=== PATIENT | female | born 1950 | race Caucasian/White ===

== ENCOUNTER 2020-02-25 08:27 | Outpatient (CLI) | payer MEDICARE, OTHER, SELFPAY ==
--- NOTE | ~2020-02-25 | MM_ITS ---
EXAMINATION: MM screening new BI w álvaro HISTORY: Screening mammogram TECHNIQUE: Craniocaudal and mediolateral oblique 3-D tomosynthesis images were obtained and synthetic 2-D images were generated. CAD analysis was submitted and interpreted. COMPARISON: 07/14/2018, 02/03/2016, 10/24/2014 bilateral digital screening mammogram examinations BREAST PARENCHYMAL COMPOSITION: There are scattered areas of fibroglandular density. FINDINGS: There are occasional stable bilateral low-density circumscribed opacities, measuring up to 9 mm on each side, not significantly changed since 02/03/2016. There is a biopsy marker on the left; hi story of prior benign left breast biopsy. There is no evidence of suspicious mass, calcification, or architectural distortion to suggest malignancy in either breast. There has been no suspicious interva l change. IMPRESSION: 1. No mammographic evidence of malignancy. 2. Recommend routine screening mammography in one year. BI-RADS Category 2: Benign finding(s). Reviewed, dictated and finalized at location A.
== END 2020-02-25 08:28 | disposition home or self-care (01) ==
LOC: ANHIMG 08:30
PROVIDERS: PCP Family Medicine; Visit Provider Family Medicine
DX: Z12.31 Encounter for screening mammogram for malignant neoplasm of breast (principal)
CPT/HCPCS: 77063; 77067

== ENCOUNTER 2020-02-27 07:30 | Outpatient (CLI) | payer MEDICARE, OTHER, SELFPAY ==
--- NOTE | ~2020-02-27 | MR_ITS ---
EXAMINATION: MR brain/brain stem wo/w con DATE: 02/27/2020 09:07 INDICATION: Hereditary ataxia, unspecified. Loss of balance. TECHNIQUE: Magnetic resonance imaging (MRI) of the brain and brainstem was performed without and with 10 mL MultiHance intravenous contrast. Sequences included sagittal and axial T1-weighted FSE, axial diffusion-weighted FS EPI, axial T2*-weighted GRE, axial T2-weighted FLAIR Propeller, and axial T2-we ighted Propeller. Postcontrast sequences included axial and coronal T1-weighted FSE. Apparent diffusi on coefficient (ADC) maps were created. COMPARISON: None. FINDINGS: There is diffuse brain volume loss. There are scattered areas of nonspecific increased T2-w eighted signal intensity in the cerebral white matter, which is within normal limits for the patient' s age. There is no intracranial hemorrhage, acute infarction, or abnormal intracranial mass lesion. T he ventricles are normal in size. The orbits are normal. There is mucosal thickening in left maxillar y sinus. IMPRESSION: 1. Normal aging brain. Reviewed, dictated and finalized at location A. IMPRESSION: 1. Normal aging brain.
[2020-02-27 08:26] LABS: Estimated Glomerular Filt Rate 44
== END 2020-02-27 07:31 | disposition home or self-care (01) ==
PROVIDERS: PCP Family Medicine; Visit Provider Family Medicine
DX: G11.9 Hereditary ataxia, unspecified (principal)
CPT/HCPCS: 36415; 70553; A9577

== ENCOUNTER → 2021-03-06 00:57 | Outpatient (CLI) | payer MEDICARE, OTHER, SELFPAY ==
[2021-03-07 02:13] LABS: SARS-CoV-2 RNA PCR Negative
== END ==
PROVIDERS: PCP Family Medicine; Visit Provider Physician Assistant Medical
DX: Z20.822 Contact with and (suspected) exposure to COVID-19 (principal)
CPT/HCPCS: C9803; U0003; U0005

== ENCOUNTER 2021-11-17 10:58 | Emergency (ER) | payer MEDICARE, OTHER, SELFPAY ==
[2021-11-17 11:04] VITALS: BP 183/78; PULSE 70; RESP 16; TEMP 36.5; O2SAT 98
--- NOTE | 2021-11-17 11:06 | ED.GENADULT ---
HPI - General Adult General Chief complaint: Ear Stated complaint: EAR CONGESTION Time Seen by Provider: 11/17/21 11:07 Source: patient Mode of arrival: ambulatory Limitations: no limitations History of Present Illness HPI narrative: 71-year-old female presented for complaint of bilateral ear congestion for 2 weeks. Endorses occasional pain on the left, and decreased hearing on the right. She has been using [id number]-rtgviel earwax softener along with water and hydrogen peroxide with minimal relief. She denies tinnitus, headache, dizziness, nausea, fever or chills. Takes aspirin for arthritis. Related Data Home Medications Medication Instructions Recorded Confirmed aspirin 325 mg tablet 325 mg PO DAILY 08/15/19 07/22/21 cyanocobalamin (vitamin B-12) 1,000 mcg PO DAILY 03/26/20 07/22/21 1,000 mcg tablet zinc 50 mg tablet 50 mg PO DAILY 01/20/21 07/22/21 Allergies Allergy/AdvReac Type Severity Reaction Status Date / Time amoxicillin Allergy Unknown Nausea Verified 07/22/21 09:51 nitrofurantoin Allergy Unknown Skin Verified 07/22/21 09:51 Reaction Review of Systems Review of Systems: CONSTITUTIONAL: Denies malaise, chills, or fever. EYES: Denies visual changes, redness, or discharge. ENT: Denies rhinorrhea, congestion, sinus pain, and sore throat. Reports ear congestion CARDIOVASCULAR: Denies chest pain, palpitations, or edema. RESPIRATORY: Denies cough or dyspnea. GASTROINTESTINAL: Denies abdominal pain, nausea, vomiting, diarrhea SKIN: Denies rash or itching. MUSCULOSKELETAL: Denies myalgia. NEUROLOGIC: Denies headache. All systems reviewed & are unremarkable except as noted in HPI and below [facility] Past Medical History Medical History (Updated 11/17/21 @ 11:55 by Josephine Choudhary APRN) Cerebellar ataxia Family History Family History Father Family history of glaucoma Hypertension Family history of elevated blood lipids Family history of cardiovascular disease Cerebrovascular accident Mother Family history of cardiovascular disease Social History Social History Alcohol intake: never Comments At time of signature, agree with nursing past medical, surgical, social and family history. There is no relevant family history pertinent to the presenting complaint Exam Narrative: GENERAL: Well-appearing HEAD: Normocephalic EYES: conjunctivae clear ENT: Nares clear. Mucous membranes moist. TMs unable to visualize bilaterally due to cerumen impaction; no tragal tenderness. Oropharynx not erythematous without lesions. Tonsils not enlarged and without exudate, no drooling, no hoarseness, no trismus, uvula midline. NECK: Supple. No lymphadenopathy CHEST: Clear to auscultation, breath sounds equal. No wheezing, rhonchi, rales, or stridor. HEART: Regular rate and rhythm. No murmur heard. SKIN: Warm, dry, no rash. NEURO: Alert and oriented x3. PSYCH: Normal mood and affect Course Course Emergency Course: Patient is aware of diagnosis, understands and agrees to treatment plan. Anticipatory guidance given. Patient agrees to follow-up as directed and is aware of reasons to seek care at the emergency department. Portions of this record may have been created with voice recognition software Level of Care: Express Care Visit Vital Signs Vital signs: Vital Signs Temperature 97.7 F 11/17/21 11:04 Pulse Rate 70 11/17/21 11:04 Respiratory Rate 16 11/17/21 11:04 Blood Pressure 183/78 H 11/17/21 11:04 Pulse Oximetry 98 11/17/21 11:04 Temperature 97.7 F 11/17/21 11:09 Pulse Rate 70 11/17/21 11:09 Respiratory Rate 16 11/17/21 11:09 Blood Pressure 183/78 H 11/17/21 11:09 Pulse Oximetry 98 11/17/21 11:09 Reviewed Procedures Ear Wax Removal Both Ears: Ear Wax Removal Date: 11/17/21 Cerumenolytic Used: other (hydrogen peroxide
[2021-11-17 11:09] VITALS: BP 183/78; PULSE 70; RESP 16; TEMP 36.5; O2SAT 98
== END 2021-11-17 12:03 | disposition home or self-care (01) ==
PROVIDERS: Emergency Provider Nurse Practitioner Family; PCP Family Medicine
DX: H61.23 Impacted cerumen, bilateral (principal); G11.9 Hereditary ataxia, unspecified
CPT/HCPCS: 69210; 99212; G0463

== ENCOUNTER 2021-12-01 15:02 | Outpatient (CLI) | payer MEDICARE, OTHER, SELFPAY ==
--- NOTE | ~2021-12-01 | MM_ITS ---
EXAMINATION: MM screening new BI w álvaro HISTORY: Screening mammogram TECHNIQUE: Craniocaudal and mediolateral oblique 3-D tomosynthesis images were obtained and synthetic 2-D images were generated. CAD analysis was submitted and interpreted. COMPARISON: 02/25/2020, 07/14/2018, 02/03/2016 bilateral screening mammogram examinations BREAST PARENCHYMAL COMPOSITION: There are scattered areas of fibroglandular density. FINDINGS: Stable bilateral low-density circumscribed opacities, not significantly changed since 016. There is a biopsy marker on the left; history of prior benign left breast biopsy. There is no evidenc e of suspicious mass, calcification, or architectural distortion to suggest malignancy in either [address]. There has been no suspicious interval change. IMPRESSION: 1. No mammographic evidence of malignancy. 2. Recommend routine screening mammography in one year. BI-RADS Category 2: Benign finding(s). Reviewed, dictated and finalized at location A.
--- NOTE | ~2021-12-01 | DEXA_ITS ---
Bone Density Report Name: DA GUSTAFSON Age: 71 Sex: Female Ethnicity: White Date of : 1950 Indication: postmenopausal; screening for osteoporosis; height loss; hysterectomy; Referring Provider: ABRAM, LALY Meredith Study: Bone densitometry was performed. Exam Date: December 01, 2021 Accession number: [id number] Bone Density: Region BMD T-score Z-score Classification AP Spine(L1-L4) 1.058 0.1 2.4 Normal Femoral Neck (Left) 0.735 -1.0 1.0 Normal Total Hip (Left) 0.794 -1.2 0.5 Osteopenia Femoral Neck (Right) 0.771 -0.7 1.3 Normal Total Hip (Right) 0.825 -1.0 0.7 Normal Total Hip Mean 0.810 -1.1 0.6 Osteopenia World Health Organization criteria for BMD impression classify patients as: Normal (T-score at or above -1.0), Osteopenia (T-score between -1.0 and -2.5), or Osteoporosis (T-score at or below -2.5). 10-year Fracture Risk(1): Major Osteoporotic Fracture 9.8% Hip Fracture 2.2% Reported Risk Factors: [place] (), Neck BMD=0.735, BMI=24.8, smoking (1) FRAX(R) Version 3.08. Fracture probability calculated for an untreated patient. Fracture probability may be lower if the patient has received treatment. Previous Exams: Region Exam Age BMD T-score BMD Change BMD Change Date g/cm2 vs Baseline vs Previous Total Hip(Left) 12/01/2021 71 0.794 -1.2 -0.047 (-5.6%) -0.047 (-5.6%) 07/14/2018 68 0.841 -0.8 Total Hip(Right) 12/01/2021 71 0.825 -1.0 -0.007 (-0.9%) -0.007 (-0.9%) 07/14/2018 68 0.832 -0.9 *Denotes significance at 95% confidence level, LSC for Total Hip = 0.027 g/cm2 Clinical Information Provided by Patient: Smokes Has used the following medications: Calcium Has the following medical conditions: Hysterectomy Patient maximum height was 62 Menopause Age: 43 Onset of menses at age 9 Number of children 4 Impression: The patient has low bone mass, based on the Left Total Hip T-score. The patient has an estimated ten-year risk of hip fracture of 2.2% and an estimated ten-year risk of major fracture of 9.8%, based on the WHO FRAX algorithm. The patient has risk factors, including: smoking. The BMD for the Total Hip(Left) decreased, changing by -5.6% since the last DXA exam. Discussion: BONE DENSITY IS LOW AT ONE OR MORE SKELETAL SITES. This patient's lowest T-score is low at one or more skeletal sites. It meets the World Health Organization's (WHO) criteria for ?low bone mass? (T-score between -1.0 and -2.5). The patient's
== END 2021-12-01 15:03 | disposition home or self-care (01) ==
PROVIDERS: PCP Family Medicine; Visit Provider Physician Assistant Medical
DX: Z12.31 Encounter for screening mammogram for malignant neoplasm of breast (principal); Z78.0 Asymptomatic menopausal state; M85.89 Other specified disorders of bone density and structure, multiple sites
CPT/HCPCS: 77063; 77067; 77080

== ENCOUNTER 2022-01-29 10:09 | Outpatient (CLI) | payer MEDICARE, OTHER, SELFPAY ==
--- NOTE | ~2022-01-29 | XR_ITS ---
XR finger 5th RT min 2V DATE: 01/29/2022 10:48 INDICATION: Mallet finger TECHNIQUE: 3 views COMPARISON: None FINDINGS: No fracture or dislocation is noted. There is mild flexion deformity at the distal interpha langeal joint. Osteopenia IMPRESSION: Flexion deformity distal interphalangeal joint Osteopenia Reviewed, dictated and finalized at location A.
--- NOTE | ~2022-01-29 | XR_ITS ---
XR knee RT 3V DATE: 01/29/2022 10:49 INDICATION: Right knee pain, chronic TECHNIQUE: Standing AP and lateral views. [place] view. COMPARISON: None FINDINGS: There is lateral subluxation and moderate osteoarthritic change at the patellofemoral joint . Medial and lateral compartment joint spaces are relatively well preserved. No fracture or dislocation or joint effusion. No chondrocalcinosis. No periosteal reaction or bone de struction. IMPRESSION: Lateral subluxation and osteoarthritis at the patellofemoral joint Reviewed, dictated and finalized at location A.
== END 2022-01-29 10:10 | disposition home or self-care (01) ==
PROVIDERS: PCP Family Medicine; Visit Provider Physician Assistant
DX: M20.011 Mallet finger of right finger(s) (principal); M25.561 Pain in right knee; M85.841 Other specified disorders of bone density and structure, right hand; M17.11 Unilateral primary osteoarthritis, right knee
CPT/HCPCS: 73140; 73562

== ENCOUNTER 2022-02-09 08:34 | Outpatient (CLI) | payer MEDICARE, OTHER, SELFPAY ==
--- NOTE | ~2022-02-09 | CT_ITS ---
EXAMINATION: CT lung screening DATE: 02/09/2022 08:49 INDICATION: Personal history of tobacco dependence. TECHNIQUE: Computed tomography (CT) of the chest was performed without intravenous contrast. The dose -length product was 66.93 mGy-cm. Automated exposure control and iterative reconstruction technique w ere employed. COMPARISON: CT dated 09/02/2016 FINDINGS: No thoracic lymphadenopathy. There is atherosclerosis of the aorta and coronary arteries. T here are low density lesions in the liver, most likely benign cysts. The spleen, pancreas, adrenal gl ands are unremarkable. No significant pleural or pericardial effusion. There is moderate emphysema. N o endobronchial lesions. There are a few small 2 mm nodules in the upper lobes, best seen on coronal reconstructions. No focal consolidation. No pneumothorax. Mild thoracic spondylosis. No acute osseous abnormality. IMPRESSION: 1. Lung-RADS category 2: Benign appearance or behavior. Continue annual screening with noncontrast lo w-dose chest CT in 12 months. Reviewed, dictated and finalized at location A. IMPRESSION: 1. Lung-RADS category 2: Benign appearance or behavior. Continue annual screeni ng with noncontrast low-dose chest CT in 12 months.
== END 2022-02-09 08:35 | disposition home or self-care (01) ==
LOC: ANHIMG 08:37
PROVIDERS: PCP Family Medicine; Visit Provider Physician Assistant
DX: Z12.2 Encounter for screening for malignant neoplasm of respiratory organs (principal); Z87.891 Personal history of nicotine dependence
CPT/HCPCS: 71271

== ENCOUNTER 2022-04-14 00:50 | Day surgery (SDC) | payer MEDICARE, OTHER, SELFPAY ==
[2022-04-12 09:42] VITALS: BMI 23.6
--- NOTE | 2022-04-12 09:57 | PC.NURSE ---
Report to the Outpatient Waiting Room, entrance under the green pavilion located off [facility], at time ___0800____ on date __04/14/22 . OR Time: ____0900____. Time changes happen often and if your time is changed the preop area will call you the afternoon before. - You and your visitor will be asked to self-screen and do not enter if you have any COVID symptoms. - Only one visitor and NO children visitors are allowed at this time. - The patient visitor is requested to leave or wait in car when not with patient due to restrictions. - A mask is required within the hospital. MAY HAVE LIGHT BREAKFAST Take the following medications with a SIP of water the morning of surgery: ____REG AM HOME MEDS Medications to discontinue per physician ____ASPIRIN 04/06/22 Date to take last dose Please no make-up, nail azeri, hairspray, perfume, deodorant, or body powder the day of surgery. No jewelry (including any body piercings) or valuables the day of surgery, leave them at home. Please take a shower or bath the night before, or the morning of, surgery with an antibacterial soap. Wear comfortable, loose fitting clothing. Children are encouraged to wear pajamas. - Jewelry must be removed prior to entering the operating room. Rings and piercings that are not removed may be cut off. - The hospital will not accept responsibility for valuables. - Please leave all valuables, including medications, at home the day of surgery. If you are going home after surgery, a licensed [employer] truck driver must drive you home. - NO public transportation without another adult. - We recommend that an adult stay with you for 24 hours following discharge. - We also recommend that you do not drive, make important decision, drink alcoholic beverages, or take any drugs that were not prescribed by your health care provider for at least 24 hours after your discharge time. For Pediatric surgeries, we recommend two adults accompany the child home (only one inside the building at this time). Follow any additional instructions given to you from your surgeon. If you or anyone in your household have experienced Covid symptoms in the past week, please notify your surgeon or the nurse liaison at the phone number below for possible testing. Telephone instructions given to PT and asked if any additional questions and then verbalized understanding. Patient advised to call surgeon office or pre surgery nurse liaison [phone] if any additional questions.
--- NOTE | ~2022-04-14 | XR_ITS ---
EXAMINATION: XR surgery orthopedic DATE: 04/14/2022 09:27 INDICATION: C-wire fixation of the right fifth finger TECHNIQUE: 2 fluoroscopic images of the right fifth digit were obtained during procedure performed by Dr. Rivers. Radiologist was not present for the imaging or procedure. The amount of fluoroscopy time used during this procedure was 0.3 minutes. COMPARISON: 01/29/2022 FINDINGS: Interval reduction to anatomic alignment of the prior mallet finger deformity of the right fifth digi t. Placement of a wire fixation spanning the distal interphalangeal joint extending axially from the tuft of the distal phalanx to the base of the middle phalanx. No fracture. Mild to moderate osteoarth ritis at the fifth proximal interphalangeal joint. Remaining joint spaces are relatively preserved. IMPRESSION: 1. Centimeter anatomic alignment post reduction of a prior right fifth digit mallet finger deformity with wire fixation spanning the distal interphalangeal joint. Reviewed, dictated and finalized at location A. IMPRESSION: 1. Centimeter anatomic alignment post reduction of a prior right fifth digit ma llet finger deformity with wire fixation spanning the distal interphalangeal ally int.
--- NOTE | 2022-04-14 07:10 | WPDHPUPDATE1 ---
History and Physical Update Update Date/Time: 04/14/22 07:10 History and Physical has been reviewed, including an updated exam of the patient. There are NO changes in the patient's condition. Risks, benefits, and alternatives have been discussed and questions answered. Patient agrees to proceed with procedure.
[2022-04-14 08:32] VITALS: BP 118/50; PULSE 62; RESP 16; TEMP 36.6; O2SAT 100
[2022-04-14] MEDS: LIDO 1%/EPINEPHRINE 1:100,000 50 ML VIAL INFILTRATE (08:42)
[2022-04-14 08:55] VITALS: BP 129/60; PULSE 61; RESP 16; O2SAT 96
[2022-04-14 09:00] VITALS: BP 133/64; PULSE 58; RESP 16; O2SAT 98
[2022-04-14 09:10] VITALS: BP 131/56; PULSE 57; RESP 18; O2SAT 97
[2022-04-14 09:20] VITALS: BP 122/58; PULSE 57; RESP 16; O2SAT 97
[2022-04-14 09:35] VITALS: BP 128/53; PULSE 62; RESP 16; O2SAT 100
--- NOTE | 2022-04-14 10:35 | W.PM.PROC2 ---
Procedure Note - Detailed Date of Procedure 04/14/22 Pre-op Diagnosis nonbony mallet finger right 5th Post-op Diagnosis Same Procedure Performed Closed reduction the internal C-wire fixation of the right 5th distal interphalangeal joint mallet deformity. Surgeon Js Rivers MD Anesthesia Local Description of Procedure The right 5th digit was marked in the holding area. The patient was taken to the operating room where she was placed supine on the operating table. The extremity was prepped and draped usual fashion. A time-out was held and confirmed. The digit was blocked with 1% lidocaine with epinephrine as intrathecal block. The joint was examined by C-arm. The integrity of the bone was confirmed. A 0.0 4 5 in C-wire was chosen to be stabilized this joint with the retrograde application from the hypothenar tip to the base of the middle phalanx. This was achieved 0 1 try. The pin was cut as deeply as we could in the subcutaneous tissue. The pin was advanced a mm or 2 then with pressure from the needle giles and the distal tip. The cut tip lies very close to the osseous surface. The skin was repaired with interrupted 6 0 nylon and a soft bandage applied. Placement of the hand positioning of the middle and distal phalanges was confirmed with C-arm. Estimated Blood Loss 0 Tourniquet Time 0 Drains No Packing No Pathology None sent Complications No immediate complications Condition Stable Disposition Same day
== END 2022-04-14 10:00 | disposition home or self-care (01) ==
PROVIDERS: PCP Family Medicine; Visit Provider Plastic Surgery
PROC: (CPT 26432; principal; 2022-04-14 09:00)
DX: M20.011 Mallet finger of right finger(s) (principal); I10 Essential (primary) hypertension; K21.9 Gastro-esophageal reflux disease without esophagitis; Z79.82 Long term (current) use of aspirin
CPT/HCPCS: 26432; 99199; A9270; C1713

== ENCOUNTER 2022-05-21 13:54 | Outpatient (CLI) | payer MEDICARE, OTHER, SELFPAY ==
--- NOTE | 2022-05-21 15:01 | ECG_ITS ---
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
[2022-05-21 15:35] LABS: Add Urine Microscopic? YES; Appearance Urine Cloudy (Clear); Bilirubin Urine Negative (Negative); Blood Urine Negative (Negative); Color Urine Yellow (Yellow); Glucose Urine UA Negative (Negative); Ketones Urine Trace mg/dL (Negative); Leukocyte Esterase Ur Negative LEU/UL (Negative); Mucus Urine Rare /lpf; Nitrate Urine Negative (Negative); Protein Urine Negative (Negative); Squamous Epithelial Cell Urine Moderate /hpf (Few); Urobilinogen Urine Negative mg/dL (<2.0); WBC Urine 0-3 /hpf
[2022-05-21 15:37] LABS: Hemoglobin A1C 5.4 % (<5.7)
[2022-05-21 15:47] LABS: INR 1.1; Prothrombin Time 13.5 Seconds (11.1-14.7)
[2022-05-21 15:48] LABS: Partial Thromboplastin Time 28.5 SECONDS (22.3-36.8)
== END 2022-05-21 13:55 | disposition home or self-care (01) ==
PROVIDERS: PCP Family Medicine; Visit Provider Orthopaedic Surgery
DX: M16.11 Unilateral primary osteoarthritis, right hip (principal); Z01.818 Encounter for other preprocedural examination; R94.31 Abnormal electrocardiogram [ECG] [EKG]
CPT/HCPCS: 36415; 81001; 83036; 85610; 85730; 86850; 86900; 86901; 87081; 93005

== ENCOUNTER 2022-06-02 00:41 | Day surgery (SDC) | payer MEDICARE, OTHER, SELFPAY ==
[2022-05-21 14:10] VITALS: BMI 24.7
--- NOTE | 2022-05-21 14:41 | PC.NURSE ---
Report to the Outpatient Waiting Room, entrance under the green pavilion located off [facility], at time _0600 on date _06/02/22 . Planned Procedure Time: _07 . Time changes happen often and if your time is changed the preop area will call you the afternoon before. - You and your visitor will be asked to self-screen and do not enter if you have any COVID symptoms. - We encourage only one visitor and NO visitors under age 16 are allowed at this time. Your visitor will receive communication by the phone number that is given day of service. - The patient visitor is requested to social distance or may leave the building when not with patient due to restrictions. - A mask is required within the hospital. Patients may have clear liquids (water, carbonated beverages, clear teas, apple juice) until 3 hours prior to surgery with a maximum of 20 ounces. - No food from midnight until time of surgery - Infants may have breast milk until 4 hours before surgery, formula 6 hours prior to surgery. - Children will be allowed to drink immediately following surgery. If applicable, please bring a bottle or sippy cup to assist with drinking. Juice, water, soda, and popsicles are readily available. For infants on formula, please bring formula the day of surgery. Pacifiers are allowed. Take the following medications with a SIP of water the morning of surgery: __METOPROLOL Medications to discontinue per physician __PT STATES HOLD ASPIRIN 7 DAYS PRE OP PER DR THORNTON. ALL VITAMINS AND SUPPLEMENTS 3 DAYS PRE OP Date to take last dose_ASPIRIN 05/25/22 VIT/SUPP05/29/22 Please no make-up, nail kuwaiti, hairspray, perfume, deodorant, or body powder the day of surgery. No jewelry (including any body piercings) or valuables the day of surgery, leave them at home. Please take a shower or bath the night before, or the morning of, surgery with an antibacterial soap. Wear comfortable, loose fitting clothing. Children are encouraged to wear pajamas. - Jewelry must be removed prior to entering the operating room. Rings and piercings that are not removed may be cut off. - The hospital will not accept responsibility for valuables. - Please leave all valuables, including medications, at home the day of surgery. If you are going home after surgery, a licensed home delivery driver must drive you home. - NO public transportation without another adult. - We recommend that an adult stay with you for 24 hours following discharge. - We also recommend that you do not drive, make important decision, drink alcoholic beverages, or take any drugs that were not prescribed by your health care provider for at least 24 hours after your discharge time. For Pediatric surgeries, we recommend two adults accompany the child home. Follow any additional instructions given to you from your surgeon. If you or anyone in your household have experienced Covid symptoms in the past week, please notify your surgeon or the nurse liaison at the phone number below for possible testing. VERBAL AND WRITTEN instructions given to _PATIENT and asked if any additional questions and then verbalized understanding. Patient advised to call surgeon office or pre surgery nurse liaison [phone] if any additional questions.
[2022-05-21 15:01] VITALS: BP 124/62; PULSE 57; RESP 18; TEMP 36.7; O2SAT 100
--- NOTE | 2022-06-01 17:18 | WPDANESEPPF ---
Anes - Initial Pre Proc Eval Procedure: Operation Date: 06/02/22 07:30 Proposed Procedures p Right Total Hip Arthroplasty - Fer Lind MD Date/Time: 06/01/22 17:18 Surgeon: Fer Lind MD Pre Op Diagnosis: Rt Hip DJD Patient Data Age: 71 Gender: F Height: 1.55 m Weight: 59.4 kg Last Vital Signs Temp 36.7 C 05/21/22 15:01 Pulse 57 L 05/21/22 15:01 Resp 18 05/21/22 15:01 BP 124/62 05/21/22 15:01 Pulse Ox 100 05/21/22 15:01 O2 Del Method Room Air 05/21/22 15:01 Allergies Allergy/AdvReac Type Severity Reaction Status Date / Time amoxicillin AdvReac Severe Gastrointestinal Verified 06/02/22 06:20 Upset adhesive tape AdvReac Rash Verified 06/02/22 06:20 nickel AdvReac Itching/BLI Verified 06/02/22 06:20 STERS Home Medications Medication Instructions Recorded Confirmed Type aspirin 325 mg tablet 325 mg PO DAILY 08/15/19 06/02/22 History cyanocobalamin (vitamin B-12) 1,000 mcg PO QAM 03/26/20 06/02/22 History 1,000 mcg tablet zinc 50 mg tablet 50 mg PO DAILY 01/20/21 06/02/22 History estradiol 0.5 mg tablet See Rx Instructions .Route 09/18/21 06/02/22 Rx .COMPLEX #90 tabs metoprolol succinate 50 mg See Rx Instructions .Route 12/29/21 06/02/22 Rx tablet,extended release 24 hr .COMPLEX #180 tabs lisinopril 20 1 tablet PO DAILY #90 tabs 01/22/22 06/02/22 Rx mg-hydrochlorothiazide 25 mg tablet omeprazole 20 mg capsule,delayed See Rx Instructions .Route 03/26/22 06/02/22 Rx release .COMPLEX #90 caps cholecalciferol (vitamin D3) 10 10 mcg PO DAILY 04/12/22 06/02/22 History mcg (400 unit) tablet multivitamin 1 tablet PO DAILY 04/12/22 06/02/22 History fdnfpuvituff-ohijizbc-ejqktd 1 tablet PO QAM 04/12/22 06/02/22 History tablet (Vision Plus Lutein tablet) calcium carbonate 600 mg-vitamin 1 tablet PO DAILY 05/21/22 06/02/22 History D3 10 mcg (400 unit) tablet (Calcium 600 + D(3)) ECG: Date of Service: 05/21/22 Procedure(s): CA 12 lead EKG Accession Number(s): [id number] cc: ~ ? Measurements Intervals? [place]? Rate: ? 56 ? P:? 67 AR: ? 180? QRS:? -56 QRSD: ? 110? T:? 67 QT: ? 416? QTc:? 403? Interpretive Statements SINUS BRADYCARDIA POSSIBLE LEFT ATRIAL ENLARGEMENT [-0.1mV P WAVE IN V1/V2] LEFT ANTERIOR FASCICULAR BLOCK [QRS AXIS <= -45, QR IN I, RS IN II] POOR R-WAVE PROGRESSION, CANNOT RULE OUT AN OLD ANTEROSEPTAL MYOCARDIAL INFARCTION NO PREVIOUS ECG AVAILABLE FOR COMPARISON Electronically Signed On 05-22-2022 8:51:29 CDT by Tammi Fuller M.D. Patient hx anesthesia problems: none Family hx anesthesia problems: none Results Review: All pre-operative results and documents have been reviewed as part of the pre-operative evaluation. 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 Essential (primary) hypertension Gastro-esophageal reflux disease without esophagitis Irradiation cystitis with hematuria Knee pain, right long-term use of drug Mallet finger of right finger(s) Nicotine dependence, unspecified, uncomplicated Osteopenia after menopause Preoperative testing Right knee DJD Squamous cell skin cancer, face Ulcerative (chronic) pancolitis without complications Unilateral primary osteoarthritis, right hip Surgical History Surgical History History of bunionectomy History of lumbar surgery History of partial hysterectomy History of stress incontinence procedure using tension free vaginal tape Family History Family History (Reviewed 04/06/22 @ 15:26 by Terrie
[2022-06-02] VITALS (12 sets, daily range): BP systolic 99–119; BP diastolic 38–79; PULSE 43–74; RESP 12–18; TEMP 36.1–36.7; O2SAT 95–100
--- NOTE | 2022-06-02 | ECHO_ITS ---
Patient Info Name: Jillian Riddle Age: 71 years : 1950 Gender: Female Ht: 61 in Wt: 126 lbs BSA: 1.58 m2 HR: 49 bpm BP: 110 / 60 mmHg Technical Quality: Good Exam Date: 06/02/2022 3:04 PM Exam Location: [facility] Patient Status: Outpatient Admit Date: 06/02/2022 Staff Ordering Physician: Fer Lind MD Riveter Hand: Elena Solorio RDCS Attending Provider: Fer Lind MD Referring Physician: Diogo CHINCHILLA; Exam Type: CA echo doppler color flow Study Info Indications - post-op vascular complications Complete two-dimensional, color flow and Doppler transthoracic echocardiogram is performed. Summary 1. Complete two-dimensional, color flow and Doppler transthoracic echocardiogram is performed. 2. Left ventricular chamber dimension is normal. 3. Left ventricular systolic function is normal, estimated at 65-70%. 4. The left ventricular diastolic function is grade I diastolic dysfunction. 5. E/e' 9 is minimally elevated. Left Ventricle E/e' 9 is minimally elevated. Left ventricular chamber dimension is normal. Left ventricular systolic function is normal, estimated at 65-70%. The left ventricular diastolic function is grade I diastolic dysfunction. Right Ventricle Right ventricular systolic function is normal and with normal TAPSE 2.2 cm. Right ventricular chamber dimension is normal. Left Atria Left atrial chamber dimension is normal. Right Atria Right atrial chamber dimension is normal. Aortic Valve The aortic valve is trileaflet. There is no aortic valve stenosis. There is no aortic valve regurgitation. Pulmonic Valve There is no pulmonic regurgitation. Mitral Valve There is no mitral valve stenosis. There is no mitral valve regurgitation. Tricuspid Valve There is no tricuspid valve regurgitation. Pericardium/Pleural There is no pericardial effusion. Inferior Vena Cava Normal inferior vena cava with >50% collapse upon inspiration consistent with normal right atrial pressure, 5 mmHg. Aorta The aortic root size at the sinus of Valsalva is normal. Left Ventricular Outflow Tract Name Value Normal LVOT 2D LVOT Diameter 1.9 cm Mitral Valve Name Value Normal MV Doppler MV Peak Gradient 5 mmHg MV Mean Gradient 2 mmHg MV Decel [place] 292 cm/s2 MV PHT 67 ms MV Area (PHT) 3.3 cm2 4.0-5.0 MV Diastolic Function MV E Peak Velocity 68 cm/s MV A Peak Velocity 113 cm/s MV E/A 0.6 MV Decel Time 233 ms MV Annular TDI MV E/e' (Septal)
--- NOTE | ~2022-06-02 | XR_ITS ---
EXAMINATION: XR hip RT min 2V DATE: 06/02/2022 10:22 INDICATION: Postoperative evaluation following right total hip arthroplasty TECHNIQUE: Anteroposterior and lateral views of the right hip were obtained. COMPARISON: Radiographs dated 03/11/2022 FINDINGS: Interval placement of a right total hip arthroplasty which appears well seated in near anatomic align ment. Expected soft tissue gas in the postoperative bed. No fractures identified. IMPRESSION: 1. Right total hip arthroplasty, negative for postoperative purposes. Reviewed, dictated and finalized at location B.
--- NOTE | ~2022-06-02 | US_ITS ---
EXAMINATION: US arterial duplex LE RT DATE: 06/02/2022 13:18 INDICATION: No right lower limb pulse after total right hip arthroplasty. TECHNIQUE: Multiple grayscale and Doppler ultrasound images of the right lower limb were obtained. COMPARISON: None FINDINGS: Peak systolic velocity is 64 cm/s in right common femoral artery, 57 cm/s in proximal right superficial femoral artery, and 66 cm/s in right profunda femoral artery. There is total occlusion o f mid and distal right superficial femoral artery. Peak systolic velocity is 39 cm/s in right poplite al artery, 38 cm/s in right posterior tibial artery, and 23 cm/s in right anterior tibial artery. Art erial vascular flow is not identified in the expected area of dorsalis pedis. IMPRESSION: 1. Total occlusion of mid and distal right superficial femoral artery with reconstitution in poplitea l artery. 2. Arterial vascular flow not identified in the expected area of right dorsalis pedis. Reviewed, dictated and finalized at location A. IMPRESSION: 1. Total occlusion of mid and distal right superficial femoral artery with kirk nstitution in popliteal artery. 2. Arterial vascular flow not identified in the expected area of right dorsalis pedis.
[2022-06-02] MEDS: ACETAMINOPHEN 500 MG TABLET 1000 MG PO (06:25)
[2022-06-02] MEDS: LACTATED RINGERS 1,000 ML 30 ML IV CONT ×2 (06:30→10:08)
[2022-06-02] MEDS: TRANEXAMIC ACID 1,000MG/ISO100 1,000 MG/100 ML BAG 200 MG IVPB (06:30)
--- NOTE | 2022-06-02 07:18 | WPDHPUPDATE1 ---
History and Physical Update Update Date/Time: 06/02/22 07:18 History and Physical has been reviewed, including an updated exam of the patient. There are NO changes in the patient's condition. Risks, benefits, and alternatives have been discussed and questions answered. Patient agrees to proceed with procedure.
[2022-06-02] MEDS: ceFAZolin 2 GM/D5W 50 ML 2 GM/50 ML BAG IVPB ×2 (07:30→15:59)
[2022-06-02] MEDS: TRANEXAMIC ACID 1,000 MG/10 ML AMPUL 1000 MG IV PUSH ×2 (07:30→09:10)
--- NOTE | 2022-06-02 10:30 | SUR.OPER ---
Addendum entered by Timothy Moeller RN 06/02/22 10:33: Capillary refill >3 seconds prior to transfer to PACU Original Note: Patient moved back to bed from OR table with 3 administrative support assoc and surgeon. Right pedal pulse diminished and noted slightly cyanotic color. Surgeon immediately notified by this RN as he was present at the bedside and is aware of assessment findings. PACU staff made aware as well.
[2022-06-02] MEDS: fentaNYL CITRATE INJ (*CRX) 100 MCG/2 ML VIAL 25 MCG IV PUSH (10:32)
--- NOTE | 2022-06-02 10:40 | W.PM.PROC2 ---
Procedure Note - Detailed Date of Procedure 06/02/22 Pre-op Diagnosis Rt Hip DJD Post-op Diagnosis Same Procedure Performed R RUBY Surgeon Fer Lind MD Anesthesia General Description of Procedure THE PATIENT WAS TAKEN TO THE OPERATING ROOM IN STABLE CONDITION AND WAS PLACED IN THE LATERAL DECUBITUS AND THE RIGHT LOWER EXTREMITY WAS PREPPED AND DRAPED IN THE STERILE FASHION. INCISION WAS MADE IN THE POSTERIOR LATERAL SIDE OF THE HIP, DOWN TO THE FASCIA LAYER. THE FASCIA WAS INCISED. THE HIP WAS EXPOSED. THE SHORT EXTERNAL ROTATORS WERE EXPOSED. THE SCIATIC NERVE WAS IDENTIFIED. INCISION WAS MADE THROUGH THE SHORT EXTERNAL ROTATORS AND THE CAPSULE OF THE HIP JOINT. THE HIP WAS DISLOCATED. AN OSTEOTOMY WAS MADE TO THE FEMORAL NECK ABOUT 1 CM PROXIMAL TO THE LESSER TROCHANTER. THE ACETABULUM WAS EXPOSED. THERE WAS SEVERE DJD SEEN. BEGINNING WITH A 44 REAMER THE ACETABULUM WAS REAMED TO 51 MM. A 51 MM TRIAL WAS PLACED IN 35 DEG OF ABDUCTION AND ANTEVERSION WAS IN ALIGNMENT WITH THE TRANS ACETABULAR LIGAMENT. THE FIT WAS EXCELLENT. THE TRIAL WAS REMOVED. A 52 MM BIOMET G7 COMPONENT WAS THEN TAPPED IN TO PLACE IN 35 DEG OF ABDUCTION AND ANTEVERSION IN ALIGNMENT WITH THE TRANSVERSE ACETABULAR LIGAMENT. THE FIT WAS EXCELLENT. THE ACETABULAR LINER WAS PLACED AND CHECKED FOR STABILITY. NEXT THE FEMUR WAS PREPARED WITH INITIAL CANAL FINDER THEN SEQUENTIAL BROACHING WITH A TAPERLOC HIP SYSTEM, UNTIL A 10 BROACH FIT WELL IN 15 OF ANTEVERSION. A +3 HIGH OFFSET NECK WITH 36 MM HEAD TRIAL WAS PLACED. THE SHUCK TEST WAS EXCELLENT AND THE STABILITY IN FLEXION AND ROTATION WAS EXCELLENT. LEG LENGTHS WERE GROSSLY EQUAL. TRIALS WERE REMOVED. A BIOMET TAPERLOC 10 STEM WAS PLACED WITH A HIGH OFFSET NECK. THE FIT WAS EXCELLENT IN 15 DEG OF ANTEVERSION. A +3 CERAMIC 36 MM FEMORAL HEAD WAS PLACED. THE HIP WAS TRIALED AND THE STABILITY WAS EXCELLENT WERE THE LEG LENGTHS AND THE SHUCK TEST. THE WOUND WAS IRRIGATED WITH STERILE BETADINE AND WATER FOR 3 MIN. THEN WASHED AGAIN. THE SCIATIC NERVE WAS IDENTIFIED AGAIN. THE CAPSULE AND THE EXTERNAL ROTATORS WERE APPROXIMATED WITH NUMBER 1 VICRYL. THE FASCIA WITH No 2 QUIL AND THE SUB CUTANEOUS LAYER WITH 2-0 ABSORBABLE SUTURE AND A RUNNING 3-0 SUBCUTICULAR STITCH FOR THE SKIN. DERMABOND WAS PLACED AND STERILE DRESSING WAS APPLIED. PATIENT WAS PLACED BACK ON TO THE SUPINE POSITION AND WAS EXTUBATED Estimated Blood Loss -250.0 Complications No immediate complications Condition Stable Disposition PACU
--- NOTE | 2022-06-02 10:54 | SUR.PHASEI ---
Notified Dr. Ch of patient's toes being purple and cool with capillary refill greater than 3 seconds. Right pedal pulse found via doppler, very faint.
--- NOTE | 2022-06-02 11:24 | SUR.PHASEI ---
Dr. Rudolph to PACU to assess patient. Dopplered pedial and post tibial pulses on right foot. Dr. Rudolph stated he was planning to order doppler studies of right leg during this admission.
--- NOTE | 2022-06-02 13:01 | PC.NURSE ---
Called down to PACU to give message to Dr Rudolph. During patients nerovascular checks RN was unable to detect a pedal pulse even with using a dopplar. Patients right foot was also noted to be cooler than left foot also bottom of toes appear to be purplish on bottom. New orders were put in.
--- NOTE | 2022-06-02 13:16 | ADMGEN ---
This patient, Jillian Riddle, was admitted to Medical Room 250-01. Patient/family oriented to hospital policies and general routines including ID bracelet, bed and alarms, visiting hours, pain management, procedures, bathroom and other care routines, personal items, smoking policy, room service/diet, and visiting hours. Information on how to activate the Rapid Response Team has been discussed. Patient are encouraged to report perceived risks to care and to ask questions if they do not understand what they are told or what they should do.
[2022-06-02] MEDS: DEXTROSE 5%/0.45% SOD CHL 1,000 ML 80 ML IV CONT (13:30)
[2022-06-02] MEDS: lisinopriL 20 MG TABLET PO (13:32)
[2022-06-02] MEDS: PANTOPRAZOLE 40 MG TABLET PO (13:32)
[2022-06-02] MEDS: hydroCHLOROthiazide 25 MG TABLET PO (13:32)
[2022-06-02] MEDS: estradioL 0.5 MG TABLET BY MOUTH (13:32)
--- NOTE | 2022-06-02 13:43 | ECG_ITS ---
Measurements Intervals [place] Rate: 49 P: 69 [place]: 176 QRS: -60 QRSD: 86 T: 49 QT: 473 QTc: 429 Interpretive Statements SINUS BRADYCARDIA LEFT ANTERIOR FASCICULAR BLOCK CANNOT RULE OUT SEPTAL INFARCT, AGE INDETERMINATE BASELINE ARTIFACT- V5 ABNORMAL ECG COMPARED TO ECG 05/21/2022 15:19:04 NO SIGNIFICANT CHANGES Electronically Signed On 06-02-2022 14:05:38 CDT by Geraldo Spencer D.O.
[2022-06-02 14:39] LABS: Partial Thromboplastin Time 28.2 SECONDS (22.3-36.8)
[2022-06-02 14:51] LABS: EDCOVIDSCREEN Negative (Negative)
[2022-06-02 14:56] LABS: D Dimer 0.46 ug/mL (<0.48)
[2022-06-02 15:05] LABS: Basophils Absolute Auto 0.1 K/mm3 (0.0-0.1); Basophils Percent Auto 0.5 % (0.2-1.2); Eosinophils Percent Auto 0.1 % (0-4.4); Hematocrit 33.3 % (37.0-47.0); Hemoglobin 10.8 g/dL (12.0-15.0); Immature Granulocyte Absolute 0.08 K/mm3 (0.00-0.031); Immature Granulocyte Percent A 0.5 % (0-0.5); Lymphocytes Absolute Auto 0.86 K/mm3 (0.9-3.2); Lymphocytes Percent Auto 5.1 % (18.3-44.2); Mean Corpuscular HGB Conc 32.4 g/dl (32-36); Mean Corpuscular Hemoglobin 33.6 pg (26-34); Mean Corpuscular Volume 103.7 fl (80-100); Mean Platelet Volume 9.2 fl (7.4-10.4); Monocytes Absolute Auto 0.2 K/mm3 (0.1-0.6); Monocytes Percent Auto 1.3 % (2.6-8.5); Neutrophils Absolute Auto 15.7 K/mm3 (1.3-6.7); Neutrophils Percent Auto 92.5 % (45.5-73.1); Platelet Count Result 345 k/mm3 (150-375); Red Blood Count 3.21 M/mm3 (4.2-5.4); Red Cell Distribution Width 12.5 % (11.5-14.5)
--- NOTE | 2022-06-02 15:10 | PCOTNOTE ---
Per nursing, unsafe to see at this time due to safety,pt. therapy services will be held due to total occlusion of mid and distal right superficial femoral artery with reconstitution in popliteal artery. Pt. likely to transfer. Following.
--- NOTE | 2022-06-02 15:18 | PM.PNORT ---
Subjective Subjective Date/Time Seen: 06/02/22 15:18 POSTOPERATIVELY IT WAS NOTICED THAT THE PATIENT HAD DECREASED PULSES TO THE RIGHT FOOT AND THERE WAS SOME DISCOLORATION TO THE RIGHT FOOT. DP AND POST TIB PULSES IN THE FOOT WERE FAINTLY DOPPLERABLE. DESPITE WARMING OF THE FOOT AND IMPROVED ASPECT OF COLOR AND CAPILLARY REFILL IT WAS DECIDED TO ORDER A STAT ARTERIAL DOPPLER STUDY WHICH SHOWED COMPLETE OCCLUSION TO THE FEMORAL ARTERY AT THE MID AND DISTAL SEGMENTS. THERE WAS FLOW FROM THE POPLITEAL ARTERY TO THE FOOT HOWEVER FLOW WAS SIGNIFICANTLY DECREASED. A CONSULT WITH VASCULAR SURGERY AT [facility] WAS DONE IMMEDIATELY AFTER I WAS NOTIFIED AND DECIDED IT WOULD BE IN THE BEST INTEREST OF THE PATIENT THAT SHE BE TRANSFERRED TO A CENTER THAT HAD VASCULAR SURGERY AVAILABLE FOR CONSULT. I SPOKE TO DR RESTREPO FROM [facility] IN [place] AND HE AGREED TO CONSULT ON THE PATIENT SOON SHE ARRIVED AT TRANSFER. HE THOUGHT THE PATIENT MOST LIKELY HAD PREEXISTING ARTERIAL DISEASE WHICH THEN DEVELOPED A THROMBUS. SHE WAS STARTED ON HEPARIN WITH THE ASSISTANCE OF THE INTERNAL MEDICINE TEAM. I SPOKE TO THE TRANSFER HOSPITALIST AND SHE AGREED TO THE TRANSFER. I SPOKE TO PATIENT AND DAUGHTER WHO AGREE WITH TREATMENT PLAN. WE ALSO DISCUSSED THE POTENTIAL COMPLICATIONS OF STARTING HEPARIN IN THE EARLY PERIOPERATIVE PERIOD AND THE POSSIBILITY OF FURTHER SURGERY IF SHE WERE TO DEVELOP A HEMATOMA IN THE WOUND AND THAT SHE WAS AT AN INCREASED RISK OF INFECTION. SHE UNDERSTANDS AND WISHES TO PROCEED WITH TRANSFER. Objective Data Vital Signs Vital Signs: Vital Signs - 24 hr 06/02/22 06:14 06/02/22 10:08 06/02/22 10:20 Temperature 36.2 C L 36.7 C Pulse Rate 57 L 74 45 L Respiratory Rate 18 14 14 Blood Pressure 114/54 L 99/64 L 114/67 Pulse Oximetry 95 100 100 Oxygen Delivery Room Air Simple Face Mask Simple Face Mask Oxygen Flow Rate 8 8 06/02/22 10:35 06/02/22 10:42 06/02/22 10:51 Temperature Pulse Rate 43 L 57 L Respiratory Rate 12 16 Blood Pressure 107/50 L 119/47 L Pulse Oximetry 100 95 100 Oxygen Delivery Simple Face Mask Room Air Room Air Oxygen Flow Rate 8 06/02/22 11:05 06/02/22 11:20 06/02/22 11:40 Temperature 36.1 C L Pulse Rate 48 L 47 L 52 L Respiratory Rate 12 12 16 Blood Pressure 117/78 115/38 L 113/53 L Pulse Oximetry 100 95 99 Oxygen Delivery Room Air Room Air Oxygen Flow Rate 06/02/22 11:55 06/02/22 12:25 06/02/22 13:21 Temperature 36.5 C 36.4 C Pulse Rate 50 L 50 L Respiratory Rate 16 16 Blood Pressure 112/79 103/55 L Pulse Oximetry 100 100 Oxygen Delivery Room Air Oxygen Flow Rate 06/02/22 13:25 Temperature 36.1 C L Pulse Rate 48 L Respiratory Rate 16 Blood Pressure 110/60 Pulse Oximetry 99 Oxygen Delivery Oxygen Flow Rate Intake/Output Intake/Output: Intake & Output 05/30/22 05/31/22 06/01/22 06/02/22 23:59 23:59 23:59 23:59 Intake Total 250 Balance 250 Meds/Results Medications: Active Medications Generic Name Dose Route Start Last Admin Trade Name Freq PRN Reason Stop Dose Admin Acetaminophen 650 mg 06/02/22 11:31 Acetaminophen 325 Mg Tablet PO Q6H PRN Mild Pain (1-3) or Fever Hydrocodone Bitart/Acetaminophen 1 tab 06/02/22 11:31 Hydrocodone/Acetaminophen (*Crx) 7.5-325 Mg Tablet PO Q3H PRN Pain Rated 4-6 Aspirin 325 mg 06/03/22 09:00 Aspirin 325 Mg Tablet PO DAILY [facility] Calcium Carbonate 500 mg 06/03/22 09:00 Calcium/Vitamin D 500 Mg Tablet PO 07/03/22 08:59 DAILY [facility] Celecoxib 200 mg 06/03/22 09:00 Celecoxib 200 Mg Capsule PO DAILY [facility] Cyanocobalamin 1,000 mcg 06/03/22 09:00 Cyanocobalamin 1,000 Mcg Tablet PO QAM [facility] Diazepam 5 mg 06/02/22 11:31 Diazepam (*Crx) 5 Mg Tablet PO Q6H PRN Anxiety/Muscle Spasm Estradiol 0.5 mg 06/02/22 12:00 06/02/22 13:32 Estradiol 0.5 Mg Tablet BY MOUTH 0.5 mg DAILY [facility] Administr
--- NOTE | 2022-06-02 15:34 | PCPTNOTE ---
Therapy services will be held due to total occlusion of mid and distal right superficial femoral artery with reconstitution in popliteal artery. Pt. likely to transfer. Following.
[2022-06-02] MEDS: HEPARIN SODIUM 5,000 UNITS/ML VIAL 4500 UNITS IV PUSH (15:52)
[2022-06-02] MEDS: HEPARIN SOD/D5W 100 UNITS/ML 25,000 UNITS/250 ML BAG 10 UNITS IV CONT (15:56)
--- NOTE | 2022-06-02 15:57 | PM.IMCN ---
Assessment and Plan Assessment and plan (1) S/P total right hip arthroplasty: Code(s): Z96.641 - Presence of right artificial hip joint Status: Acute Assessment and Plan: -postop care per Dr. Lind -analgesics per Dr. Lind. Fentanyl was ordered -PT and OT per Dr. Lind -DVT prophylaxis per Dr. sr, SCDs initially ordered. -incentive spirometer was ordered per Dr. Lind -neurological check ordered per Dr. Lind (2) Femoral artery occlusion, right: Code(s): I70.201 - Unspecified atherosclerosis of [place] arteries of extremities, right leg Status: Acute Assessment and Plan: -Dr. Lind had spoke with Dr. Vicky Sanchez [facility] for transfer for Total occlusion of mid and distal right superficial femoral artery with reconstitution in popliteal artery. 2. Arterial vascular flow not identified in the expected area of right dorsalis pedis -I spoke with the pharmacist for heparin orders. Heparin protocol has been started as per the heparin drip DVT protocol. -the patient is requiring higher level of care is we do not have a vascular surgeon at this hospital. (3) Gastro-esophageal reflux disease without esophagitis: Code(s): K21.9 - Gastro-esophageal reflux disease without esophagitis Status: Acute Assessment and Plan: -continue with her Pepcid (4) Nicotine dependence, unspecified, uncomplicated: Code(s): F17.200 - Nicotine dependence, unspecified, uncomplicated Status: Acute Assessment and Plan: -the patient quit smoking in preparation for the right hip surgery. (5) Essential (primary) hypertension: Code(s): I10 - Essential (primary) hypertension Status: Acute Assessment and Plan: -her hydrochlorothiazide, lisinopril and metoprolol are all restarted by orthopedic physician. Her blood pressure is 110/60 at this time pulses 48. (6) Cerebellar ataxia: Code(s): G11.9 - Hereditary ataxia, unspecified Status: Acute Assessment and Plan: -the patient had an MRI of her brain outpatient stated there is no mass there. The patient was to follow-up with neurologist and she was not able to make the appointment at that time. The patient has been doing physical therapy in her own home and appears to be helping. This is a chronic condition. Plan The plan is for the patient to be transferred to vascular surgeon for further evaluation. The bottom of the right foot turns purple when her foot is let down but when race the foot becomes pale. Unable to palpate right pedal pulse HPI Data of Consult Consult date: 06/02/22 Requesting Physician: Fer Lind MD Primary Care Provider: Gelacio Justin MD Consult Narrative Narrative: Jillian Riddle is a 71 year old female who has severe right hip pain that has been chronic and nontraumatic. Has been getting worse over the last year. The patient has pain mostly in her right groin she was taking [id number] aspirin twice a day for the right hip pain. She also complains of right foot pain with numbness and tingling and coldness. The patient had stop smoking for her right hip surgery. The patient has severe right hip degenerative joint disease. The patient had a right total hip arthroplasty per Dr. Lind today. See operative note. The patient's right lower extremity was found to be purple and cold to touch. He was difficult to find a pulse on the right foot. The nurses then called the orthopedic physician. A duplex scan was performed and read as the following1. Total occlusion of mid and distal right superficial femoral artery with reconstitution in popliteal artery. 2. Arterial vascular flow not identified in the expected area of right dorsalis pedis. Is reported that Dr. iLnd called [facility] vascular surgeon Dr. Perry who agrees to accept the patient. I did call pharmacy on heparin titration and heparin drip was started. The patient is go
[2022-06-02] MEDS: HYDROcodone/acetaminophen (*CRX) 7.5-325 MG TABLET 1 TAB PO (17:15)
== END 2022-06-02 18:51 | disposition short-term general hospital (02) ==
LOC: ANHSURGERY 06:04 → ANH2MED 11:36
PROVIDERS: Nurse Practitioner; PCP Family Medicine; Visit Provider Orthopaedic Surgery
PROC: (CPT 27130; principal; 2022-06-02 07:30)
DX: M16.11 Unilateral primary osteoarthritis, right hip (principal); I70.201 Unspecified atherosclerosis of native arteries of extremities, right leg; I97.89 Other postprocedural complications and disorders of the circulatory system, not elsewhere classified; R09.89 Other specified symptoms and signs involving the circulatory and respiratory systems; R93.1 Abnormal findings on diagnostic imaging of heart and coronary circulation; Y83.8 Other surgical procedures as the cause of abnormal reaction of the patient, or of later complication, without mention of misadventure at the time of the procedure; I10 Essential (primary) hypertension; K21.9 Gastro-esophageal reflux disease without esophagitis; G11.9 Hereditary ataxia, unspecified; M85.80 Other specified disorders of bone density and structure, unspecified site; I44.4 Left anterior fascicular block; Z87.891 Personal history of nicotine dependence; Z20.822 Contact with and (suspected) exposure to COVID-19
CPT/HCPCS: 27130; 36415; 73502; 85025; 85380; 85610; 85730; 87426; 93005; 93306; 93926; A9270; C1776; C9803; J0171; J0690; J1100; J1170; J1644; J1885; J2250; J2270; J2370; J2405; J2704; J2710; J2795; J3010; J7120

== ENCOUNTER 2022-07-16 08:42 | Outpatient (CLI) | payer MEDICARE, OTHER, SELFPAY ==
[2022-07-16 19:17] LABS: Basophils Absolute Auto 0.1 K/mm3 (0.0-0.1); Basophils Percent Auto 0.7 % (0.2-1.2); Eosinophils Absolute Auto 0.4 K/mm3 (0-0.3); Eosinophils Percent Auto 4.1 % (0-4.4); Hematocrit 31.3 % (37.0-47.0); Hemoglobin 9.9 g/dL (12.0-15.0); Immature Granulocyte Absolute 0.04 K/mm3 (0.00-0.031); Immature Granulocyte Percent A 0.4 % (0-0.5); Lymphocytes Absolute Auto 1.46 K/mm3 (0.9-3.2); Lymphocytes Percent Auto 14.8 % (18.3-44.2); Mean Corpuscular HGB Conc 31.6 g/dl (32-36); Mean Corpuscular Hemoglobin 31.3 pg (26-34); Mean Corpuscular Volume 99.1 fl (80-100); Mean Platelet Volume 9.5 fl (7.4-10.4); Monocytes Absolute Auto 0.4 K/mm3 (0.1-0.6); Monocytes Percent Auto 4.3 % (2.6-8.5); Neutrophils Absolute Auto 7.5 K/mm3 (1.3-6.7); Neutrophils Percent Auto 75.7 % (45.5-73.1); Platelet Count Result 371 k/mm3 (150-375); Red Blood Count 3.16 M/mm3 (4.2-5.4); Red Cell Distribution Width 13.4 % (11.5-14.5); White Blood Count 9.9 K/mm3 (4.5-10.0)
[2022-07-16 19:23] LABS: Alanine Aminotransferase 17 U/L (6-35); Alkaline Phosphatase 92 U/L (38-126); Anion Gap 8 mmol/L (8-16); Aspartate Amino Transferase 49 U/L (14-36); Bilirubin,Total 0.3 mg/dL (0.2-1.3); Blood Urea Nitrogen 16 mg/dL (7-17); Calcium 9.3 mg/dL (8.4-10.2); Carbon Dioxide 27 mmol/L (22-30); Chloride 100 mmol/L (98-107); Cholesterol 166 mg/dL (0-200); Estimated Glomerular Filt Rate > 60; Glucose 90 mg/dL (65-110); HDL Direct 32 mg/dL; Potassium 4.2 mmol/L (3.4-5.0); Sodium 135 mmol/L (137-145); Triglycerides 254 mg/dL (<150)
[2022-07-16 19:34] LABS: LDL Cholesterol Direct 73 mg/dL
== END 2022-07-16 08:43 | disposition home or self-care (01) ==
LOC: ANHGOSHLAB 08:44
PROVIDERS: PCP Family Medicine; Visit Provider Family Medicine
DX: K51.00 Ulcerative (chronic) pancolitis without complications (principal); E78.5 Hyperlipidemia, unspecified
CPT/HCPCS: 36415; 80053; 80061; 82607; 85025

== ENCOUNTER 2022-07-21 09:02 | Outpatient (CLI) | payer MEDICARE, OTHER, SELFPAY ==
--- NOTE | ~2022-07-21 | XR_ITS ---
XR finger 5th RT min 2V DATE: 07/21/2022 09:40 INDICATION: Mallet finger with C-wire fixation TECHNIQUE: 4 views COMPARISON: 01/29/2022 right fifth digit FINDINGS: There is a pin extending longitudinally through the entire length of the distal phalanx and through the head, neck and shaft of the middle phalanx, terminating at the base of the middle phalan x. There is associated reduction of the flexion deformity at the distal interphalangeal joint since . IMPRESSION: Surgical reduction of flexion deformity at distal interphalangeal joint by means of the a nterior distal and middle phalanges Reviewed, dictated and finalized at location B. 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
== END 2022-07-21 09:03 | disposition home or self-care (01) ==
PROVIDERS: PCP Family Medicine; Visit Provider Plastic Surgery
DX: S66.32 Laceration of extensor muscle, fascia and tendon of other and unspecified finger at wrist and hand level (principal); X58.XXXD Exposure to other specified factors, subsequent encounter
CPT/HCPCS: 73140

== ENCOUNTER 2022-09-20 14:40 | Outpatient (CLI) | payer MEDICARE, OTHER, SELFPAY ==
--- NOTE | ~2022-09-20 | US_ITS ---
EXAMINATION: US venous doppler LE RT DATE: 09/20/2022 15:31 INDICATION: Right lower limb pain. Other specified soft tissue disorders. TECHNIQUE: Grayscale ultrasound images without and with compression and Doppler ultrasound images of the right lower extremity veins were obtained. COMPARISON: None. FINDINGS: The visualized portions of right common femoral vein, profunda (deep) femoral vein, femoral vein, pop liteal vein, peroneal veins, posterior tibial veins, and greater saphenous vein outflow are patent. T here is a moderate-sized Sumner's cyst containing hypoechoic material. IMPRESSION: 1. No deep venous thrombosis. 2. Moderate-sized Sumner's cyst. Reviewed, dictated and finalized at location A. 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
== END 2022-09-20 14:41 | disposition home or self-care (01) ==
PROVIDERS: PCP Family Medicine; Visit Provider Nurse Practitioner
DX: M79.89 Other specified soft tissue disorders (principal); M71.21 Synovial cyst of popliteal space [Baker], right knee
CPT/HCPCS: 93971

== ENCOUNTER 2022-10-11 11:33 | Outpatient (CLI) | payer MEDICARE, OTHER, SELFPAY ==
[2022-10-11 20:16] LABS: Uric Acid 5.8 mg/dL (2.5-7.5)
== END 2022-10-11 11:34 | disposition home or self-care (01) ==
LOC: ANHGOSHLAB 11:35
PROVIDERS: PCP Family Medicine; Visit Provider Nurse Practitioner
DX: M10.9 Gout, unspecified (principal)
CPT/HCPCS: 36415; 84550

== ENCOUNTER → 2022-10-11 11:46 | Outpatient (CLI) | payer MEDICARE, OTHER, SELFPAY ==
--- NOTE | ~2022-10-11 | XR_ITS ---
Right foot Technique: AP and lateral views were obtained. Clinical History: Pain Findings: No acute fracture or dislocation is seen. There is probable postoperative change of the fir st metatarsal, suggesting prior bunionectomy or healed osteotomy.. Joint spaces are preserved without erosive or degenerative change. Soft tissues are unremarkable. Impression: No acute abnormality. Postoperative change of the first metatarsal. Correlate with surgical history. Reviewed, dictated and finalized at location . Impression: No acute abnormality. Postoperative change of the first metatarsal. Correlate with surgical history.
== END ==
PROVIDERS: PCP Family Medicine; Visit Provider Nurse Practitioner
DX: M79.671 Pain in right foot (principal); M10.9 Gout, unspecified; Z98.890 Other specified postprocedural states
CPT/HCPCS: 73620

== ENCOUNTER 2022-10-16 15:28 | Emergency (ER) | payer MEDICARE, OTHER, SELFPAY ==
[2022-10-16 15:35] VITALS: BP 142/74; PULSE 70; RESP 16; TEMP 35.9; O2SAT 100
[2022-10-16 15:38] VITALS: BP 142/74; PULSE 70; RESP 16; TEMP 35.9; O2SAT 100
--- NOTE | 2022-10-16 16:00 | ED.LOWEXIN ---
HPI - Extremity Injury (Lower) General Chief Complaint: Extremity Injury, Lower Stated Complaint: R FOOT SWELLING/PAIN Time Seen by Provider: 10/16/22 15:45 Source: patient Mode of arrival: ambulatory Limitations: no limitations History of Present Illness HPI Narrative: 72-year-old female with history of DVT to RLE following hip surgery (06/2022) presented for complaint of right foot redness, swelling, and pain worsening over the past few weeks. Endorses a wound/blister to the bottom of the great toe that is painful to touch. She was seen by her PCP 5 days ago for the same complaint; x-rays and uric acid level were obtained. She was also advised to follow up with her vascular surgeon, states she has an appointment with him in 3 days. However she states the pain has worsened, and she cannot tolerate the pain anymore, unable to sleep. Endorses pain is constant, and most severe to the mid foot to the toes. Pain is improved when she is walking or flexing the foot. Reports chronic numbness/tingling sensation. Currently denies coolness to the foot, shortness of breath, palpitations, nausea, vomiting, fevers or chills. Patient follows with Dr Perry vascular surgeon. Former smoker. Related Data Home Medications Medication Instructions Recorded Confirmed cyanocobalamin (vitamin B-12) 1,000 mcg PO DAILY 03/26/20 10/16/22 1,000 mcg tablet zinc 50 mg tablet 50 mg PO DAILY 01/20/21 10/16/22 multivitamin 2 tablet PO DAILY 04/12/22 10/16/22 Calcium + Vitamin D See Rx Instructions .Route .COMPLEX 06/10/22 10/16/22 Ocuvite See Rx Instructions .Route .COMPLEX 06/10/22 10/16/22 cholecalciferol (vitamin D3) 10 10 mcg PO DAILY 06/10/22 10/16/22 mcg (400 unit) capsule omeprazole 20 mg capsule,delayed 20 mg PO DAILY 06/10/22 10/16/22 release Allergies Allergy/AdvReac Type Severity Reaction Status Date / Time cyclobenzaprine Allergy Severe orthostasis Verified 10/16/22 15:35 amoxicillin AdvReac Severe Gastrointestinal Verified 10/16/22 15:35 Upset adhesive tape AdvReac Rash Verified 10/16/22 15:35 nickel AdvReac Itching/BLI Verified 10/16/22 15:35 STERS Review of Systems Review of Systems: CONSTITUTIONAL: Denies body aches, fever, chills EYES: Denies visual changes ENT: Denies rhinorrhea, congestion CARDIOVASCULAR: Denies chest pain, palpitations, or edema. RESPIRATORY: Denies cough or dyspnea. GASTROINTESTINAL: Denies abdominal pain, nausea, vomiting, or diarrhea. SKIN: Denies rash, itching, or wounds. 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 Mallet finger of right finger(s) Nicotine dependence, unspecified, uncomplicated Osteopenia after menopause Preoperative testing Right knee DJD Squamous cell skin cancer, face Ulcerative (chronic) pancolitis without complications Unilateral primary osteoarthritis, right hip Surgical History Surgical History History of bunionectomy History of lumbar surgery L4 and 5 History of partial hysterectomy History of removal of pigmented skin lesion History of stress incontinence procedure using tension free vaginal tape History of total right hip arthroplasty S/P tonsillectomy and adenoidectomy S/P total right hip arthroplasty 06/02/2022 Family History Family History Father Family history of glaucoma Hypertension Family history of elevate
== END 2022-10-16 16:05 | disposition home or self-care (01) ==
PROVIDERS: Emergency Provider Nurse Practitioner Family; PCP Family Medicine
DX: M79.671 Pain in right foot (principal); I10 Essential (primary) hypertension; Z85.828 Personal history of other malignant neoplasm of skin; Z86.718 Personal history of other venous thrombosis and embolism; Z87.891 Personal history of nicotine dependence
CPT/HCPCS: 99212; G0463

== ENCOUNTER 2022-11-10 15:31 | Outpatient (NON) | payer MEDICARE, OTHER, SELFPAY ==
[2022-11-10 16:04] LABS: Hematocrit 29.5 % (37.0-47.0); Hemoglobin 9.3 g/dL (12.0-15.0); Mean Corpuscular HGB Conc 31.5 g/dl (32-36); Mean Corpuscular Hemoglobin 32.2 pg (26-34); Mean Corpuscular Volume 102.1 fl (80-100); Mean Platelet Volume 8.8 fl (7.4-10.4); Platelet Count Result 514 k/mm3 (150-375); Red Blood Count 2.89 M/mm3 (4.2-5.4); Red Cell Distribution Width 15.9 % (11.5-14.5); White Blood Count 7.9 K/mm3 (4.5-10.0)
[2022-11-10 16:14] LABS: Alanine Aminotransferase 15 U/L (6-35); Albumin Level 3.9 g/dL (3.5-5.1); Alkaline Phosphatase 78 U/L (38-126); Anion Gap 7 mmol/L (8-16); Aspartate Amino Transferase 32 U/L (14-36); Bilirubin,Total 0.3 mg/dL (0.2-1.3); Blood Urea Nitrogen 28 mg/dL (7-17); Calcium 8.9 mg/dL (8.4-10.2); Carbon Dioxide 24 mmol/L (22-30); Chloride 101 mmol/L (98-107); Estimated Glomerular Filt Rate > 60; Glucose 79 mg/dL (65-110); Sodium 132 mmol/L (137-145)
== END 2022-11-10 15:32 | disposition home or self-care (01) ==
PROVIDERS: PCP Family Medicine; Visit Provider Family Medicine
DX: I10 Essential (primary) hypertension (principal); D50.0 Iron deficiency anemia secondary to blood loss (chronic)
CPT/HCPCS: 80053; 85027

== ENCOUNTER 2022-12-20 16:36 | Outpatient (NON) | payer MEDICARE, OTHER, SELFPAY ==
[2022-12-20 17:02] LABS: Basophils Absolute Auto 0.1 K/mm3 (0.0-0.1); Basophils Percent Auto 0.8 % (0.2-1.2); Eosinophils Absolute Auto 0.2 K/mm3 (0-0.3); Eosinophils Percent Auto 3.4 % (0-4.4); Hematocrit 35.2 % (37.0-47.0); Hemoglobin 10.8 g/dL (12.0-15.0); Immature Granulocyte Absolute 0.01 K/mm3 (0.00-0.031); Immature Granulocyte Percent A 0.2 % (0-0.5); Lymphocytes Absolute Auto 1.55 K/mm3 (0.9-3.2); Lymphocytes Percent Auto 24.1 % (18.3-44.2); Mean Corpuscular HGB Conc 30.7 g/dl (32-36); Mean Corpuscular Hemoglobin 32.3 pg (26-34); Mean Corpuscular Volume 105.4 fl (80-100); Mean Platelet Volume 9.2 fl (7.4-10.4); Monocytes Absolute Auto 0.4 K/mm3 (0.1-0.6); Monocytes Percent Auto 6.1 % (2.6-8.5); Neutrophils Absolute Auto 4.2 K/mm3 (1.3-6.7); Neutrophils Percent Auto 65.4 % (45.5-73.1); Platelet Count Result 279 k/mm3 (150-375); Red Blood Count 3.34 M/mm3 (4.2-5.4); Red Cell Distribution Width 14.4 % (11.5-14.5); White Blood Count 6.4 K/mm3 (4.5-10.0)
[2022-12-20 17:21] LABS: Hypochromasia 1+ (NORMAL); Platelet Estimate Adequate (Adequate); Schistocytes None Seen (NORMAL)
[2022-12-20 17:46] LABS: Alanine Aminotransferase 16 U/L (6-35); Albumin Level 3.8 g/dL (3.5-5.1); Alkaline Phosphatase 67 U/L (38-126); Anion Gap 7 mmol/L (8-16); Aspartate Amino Transferase 24 U/L (14-36); Bilirubin,Total 0.2 mg/dL (0.2-1.3); Blood Urea Nitrogen 24 mg/dL (7-17); Calcium 8.9 mg/dL (8.4-10.2); Carbon Dioxide 27 mmol/L (22-30); Chloride 104 mmol/L (98-107); Estimated Glomerular Filt Rate > 60; Glucose 59 mg/dL (65-110); Potassium 3.7 mmol/L (3.4-5.0); Sodium 138 mmol/L (137-145)
== END 2022-12-20 16:37 | disposition home or self-care (01) ==
LOC: HOME HLTH 16:39
PROVIDERS: PCP Family Medicine; Visit Provider Family Medicine
DX: D64.9 Anemia, unspecified (principal); I95.9 Hypotension, unspecified
CPT/HCPCS: 80053; 85025

== ENCOUNTER 2023-02-22 12:44 | Outpatient (CLI) | payer MEDICARE, OTHER, SELFPAY ==
[2023-02-22 19:16] LABS: Basophils Absolute Auto 0.1 K/mm3 (0.0-0.1); Basophils Percent Auto 0.6 % (0.2-1.2); Eosinophils Absolute Auto 0.2 K/mm3 (0-0.3); Eosinophils Percent Auto 2.6 % (0-4.4); Hematocrit 40.6 % (37.0-47.0); Immature Granulocyte Absolute 0.02 K/mm3 (0.00-0.031); Immature Granulocyte Percent A 0.2 % (0-0.5); Immature Reticulocyte Fraction 8.3 % (3.0-15.9); Lymphocytes Absolute Auto 1.88 K/mm3 (0.9-3.2); Lymphocytes Percent Auto 23.2 % (18.3-44.2); Mean Corpuscular Hemoglobin 31.7 pg (26-34); Mean Platelet Volume 9.3 fl (7.4-10.4); Monocytes Absolute Auto 0.5 K/mm3 (0.1-0.6); Monocytes Percent Auto 5.7 % (2.6-8.5); Neutrophils Absolute Auto 5.5 K/mm3 (1.3-6.7); Neutrophils Percent Auto 67.7 % (45.5-73.1); Platelet Count Result 314 k/mm3 (150-375); Red Cell Distribution Width 12.4 % (11.5-14.5); Reticulocyte Hemoglobin Conten 33.5 pg (28.2-35.7); Reticulocyte Percent 1.54 % (0.7-4.3); Reticulocytes Absolute 0.06 M/mm3 (0.02-0.1); White Blood Count 8.1 K/mm3 (4.5-10.0)
[2023-02-22 19:32] LABS: Bacteria Urine 4+ /hpf; Non Pathogenic Casts 0-2; RBC Urine 0-2 /hpf (0-2); Squamous Epithelial Cell Urine None seen /hpf (Few); WBC Urine >100 /hpf
[2023-02-22 20:25] LABS: Appearance Urine Cloudy (Clear); Bilirubin Urine Negative (Negative); Blood Urine Trace (Negative); Color Urine Yellow (Yellow); Glucose Urine UA Negative (Negative); Ketones Urine Negative (Negative); Leukocyte Esterase Ur 3+ LEU/UL (Negative); Nitrate Urine Positive (Negative); Protein Urine Negative (Negative); Specific Grav Ur 1.011 (1.001-1.035); Urobilinogen Urine 0.2 mg/dL (<2.0); pH Urine 6.5 (5.0-9.0)
[2023-02-22 20:49] LABS: Add Urine Microscopic? YES
[2023-02-23 00:13] LABS: Alanine Aminotransferase 17 U/L (6-35); Albumin Level 4.5 g/dL (3.5-5.1); Alkaline Phosphatase 96 U/L (38-126); Anion Gap 6 mmol/L (8-16); Aspartate Amino Transferase 60 U/L (14-36); Bilirubin,Total 0.3 mg/dL (0.2-1.3); Blood Urea Nitrogen 55 mg/dL (7-17); Calcium 9.6 mg/dL (8.4-10.2); Carbon Dioxide 32 mmol/L (22-30); Chloride 94 mmol/L (98-107); Cholesterol 161 mg/dL (0-200); Estimated Glomerular Filt Rate > 60; Glucose 94 mg/dL (65-110); HDL Direct 37 mg/dL; Sodium 132 mmol/L (137-145); Triglycerides 212 mg/dL (<150)
[2023-02-23 00:31] LABS: LDL Cholesterol Direct 73 mg/dL
[2023-02-23 00:57] LABS: Iron 73 ug/dL (37-170)
[2023-02-23 12:08] LABS: Vitamin D 25 Hydroxy 83.6 ng/mL
[2023-02-26 05:11] LABS: Red Blood Cell Folate 569 ng/mL RBC (>280)
== END 2023-02-22 12:45 | disposition home or self-care (01) ==
LOC: ANHGOSHLAB 12:46
PROVIDERS: PCP Family Medicine; Visit Provider Family Medicine
DX: D64.9 Anemia, unspecified (principal); M85.80 Other specified disorders of bone density and structure, unspecified site; E78.5 Hyperlipidemia, unspecified; R30.0 Dysuria
CPT/HCPCS: 36415; 80053; 80061; 81001; 82306; 82607; 82728; 82747; 83540; 85025; 85046; 87077; 87086; 87186

== ENCOUNTER 2023-03-15 11:33 | Outpatient (CLI) | payer MEDICARE, OTHER, SELFPAY ==
[2023-03-15 19:47] LABS: Alanine Aminotransferase 17 U/L (6-35); Albumin Level 3.9 g/dL (3.5-5.1); Alkaline Phosphatase 75 U/L (38-126); Anion Gap 6 mmol/L (8-16); Aspartate Amino Transferase 57 U/L (14-36); Bilirubin,Total 0.3 mg/dL (0.2-1.3); Blood Urea Nitrogen 26 mg/dL (7-17); Calcium 9.3 mg/dL (8.4-10.2); Carbon Dioxide 27 mmol/L (22-30); Chloride 98 mmol/L (98-107); Estimated Glomerular Filt Rate > 60; Glucose 70 mg/dL (65-110); Potassium 3.7 mmol/L (3.4-5.0); Sodium 131 mmol/L (137-145)
== END 2023-03-15 11:34 | disposition home or self-care (01) ==
PROVIDERS: PCP Family Medicine; Visit Provider Family Medicine
DX: R74.01 Elevation of levels of liver transaminase levels (principal)
CPT/HCPCS: 36415; 80053

== ENCOUNTER 2023-03-16 10:25 | Outpatient (NON) | payer MEDICARE, OTHER, SELFPAY ==
[2023-03-16 19:59] LABS: IFOB Positive Control Positive; Immunochemical Fecal Occult Bl Negative (N)
== END 2023-03-16 10:26 | disposition home or self-care (01) ==
LOC: ANHGOSHLAB 10:30
PROVIDERS: PCP Family Medicine; Visit Provider Family Medicine
DX: D64.9 Anemia, unspecified (principal)
CPT/HCPCS: 82274

== ENCOUNTER 2023-05-31 11:00 | Outpatient (CLI) | payer MEDICARE, OTHER, SELFPAY ==
[2023-05-31 18:45] LABS: Alanine Aminotransferase 13 U/L (6-35); Albumin Level 3.9 g/dL (3.5-5.1); Alkaline Phosphatase 73 U/L (38-126); Anion Gap 2 mmol/L (8-16); Aspartate Amino Transferase 44 U/L (14-36); Bilirubin,Total 0.3 mg/dL (0.2-1.3); Blood Urea Nitrogen 25 mg/dL (7-17); Calcium 9.3 mg/dL (8.4-10.2); Carbon Dioxide 31 mmol/L (22-30); Chloride 103 mmol/L (98-107); Estimated Glomerular Filt Rate 54; Glucose 87 mg/dL (65-110); Potassium 4.2 mmol/L (3.4-5.0); Sodium 136 mmol/L (137-145)
== END 2023-05-31 11:01 | disposition home or self-care (01) ==
LOC: ANHGOSHLAB 11:02
PROVIDERS: PCP Family Medicine; Visit Provider Family Medicine
DX: R74.01 Elevation of levels of liver transaminase levels (principal); E87.1 Hypo-osmolality and hyponatremia
CPT/HCPCS: 36415; 80053

== ENCOUNTER 2023-08-31 13:30 | Outpatient (RCR) | payer MEDICARE, OTHER, SELFPAY ==
--- NOTE | 2023-06-08 13:11 | OPREHPOC ---
Outpatient Therapy Plan of Care This is a Multidisciplinary Plan of Care that may contain components documented by all disciplines (PT, OT, and ST.) PT Problem 1 PT Problem #1 Knowledge Deficit PT Goal 1 Goal Pt to be IND with issued HEP Target Visit 8 PT Problem 2 PT Problem #2 Impaired Gait PT Goal 1 Goal Pt to improve 2 min walk distance from 175ft to 300ft. Target Visit 8 PT Goal 2 Goal pt to be able to walk for 200ft without the an AD. Target Visit 8 PT Problem 3 PT Problem #3 Impaired Strength PT Goal 1 Goal Pt to demonstrate full terminal knee extension in sitting to demonstrate good quad strength Target Visit 8 PT Goal 2 Goal Pt to be able to complete 5xSTS in less than 25s without UE support Target Visit 8 PT Problem 4 PT Problem #4 Impaired Functional Mobil PT Goal 1 Goal Pt to be able to tolerate a 20 min walk with only a cane or walking stick needed Target Visit 8 PT Goal 2 Goal Pt to be able to demonstrate a floor to stand transfers without external support Target Visit 8 PT Problem 5 PT Problem #5 Impaired Safety Awareness PT Goal 1 Goal Pt to report no falls in the last month Target Visit 8
--- NOTE | 2023-06-08 13:11 | PTOPEVAL1 ---
Assessment and note entered by Sandhya Mckay, PT, DPT Evaluation Information Assessment Status Evaluation Diagnosis R below knee amputation Onset 10/22/22 Subjective Information Pt states she had a R RUBY on 06/02/22 and starting from then had blood clots with a few failed revascularizations over the next several month. She ended up needing to have a R BKA on 10/22/22 and a tissue revision on 11/21/22. After that had home health PT and got fitted for a prosthesis while heeling. She finally received her prosthetic on . She states donning her prosthetic is a little uncomfortable but it goes away pretty quickly when she is up and moving. She is wearing her prosthetic about 12 hours a day and can tolerate being up and moving around for 25 mins at a time. She states she has had 2 falls since her amputation. Reported Pain Level Pain Score 0: Self Report Assessment PT Clinical Summary Roya presents to therapy today for her initial evaluation following a R BKA on 10/22/22, she received her prosthesis on 04/21/23. Today she currently relies on a WW for support during ambulation, she ambulates with gait deviations, and a decreased gait speed from expected. She has full passive knee extension but is lacking enough quad strength get to full knee extension on her own. She demonstrates good knowledge of a wear schedule and what things to look out for as a new amputee. Skilled therapy services are indicated for gait training, functional movement training, to improve strength, and to return to PLOF with minimal limitations. LEFS: Plan of Care Interventions Check Out for Orthotic/Pr,Gait Training,Hot Pack/ Cold Pack,Manual Therapy,Neuro Re-education, Patient/Caregiver Educati,Therapeutic Activities, Therapeutic Exercise PT Services Indicated Yes Treatment Frequency and 2x/wk for 8 visits Duration These treatments will address the objective and functional deficits as defined above. The patient will be advanced safely and appropriately in order for the patient to progress towards his/her prior level of function. Additional exercises will be introduced and as well as a comprehensive home exercise program upon discharge, if needed, ?to ensure carryover of functional gains achieved in the clinic. This treatment plan has been reviewed and agreement upon by the patient.
--- NOTE | 2023-07-06 16:54 | PTOPPROG ---
Assessment and note entered by Sandhya Mckay, PT, DPT Evaluation Information Assessment Status Progress Diagnosis R below knee amputation Onset 10/22/22 Subjective Information Pt states her greatest concerns is her decreased balance when she is walking. Shes states she has more confidence when ambulating prior to starting. She is still walking with a walker. She states she can still not stand longer than 25-30 mins on her leg. She states she still uses her wheelchair a majority of time when at home d/t being able to carry things or move things around (laundry, mail, a vacuum) IND. Assessment PT Clinical Summary Roya presents to therapy today for her progress report following 9 visits of skilled therapy to treat the deficits related to a R BKA on 10/22/22, she received her prosthesis on 04/21/23. Today she continues to ambulate with a WW for balance and support, she can ambulate with a quad cane with CGA but this is at a much slower pace and in a controlled environment. She continues to have functional balance scores that place her at an increased risk for falls. Continuation of skilled therapy services are indicated for gait training, functional movement training, to improve strength, and to return to PLOF with minimal limitations. LEFS: Plan of Care Interventions Check Out for Orthotic/Pr,Gait Training,Hot Pack/ Cold Pack,Manual Therapy,Neuro Re-education, Patient/Caregiver Educati,Therapeutic Activities, Therapeutic Exercise PT Services Indicated Yes Treatment Frequency and 2x/wk for 8 visits Duration These treatments will address the objective and functional deficits as defined above. The patient will be advanced safely and appropriately in order for the patient to progress towards his/her prior level of function. Additional exercises will be introduced and as well as a comprehensive home exercise program upon discharge, if needed, ?to ensure carryover of functional gains achieved in the clinic. This treatment plan has been reviewed and agreement upon by the patient.
--- NOTE | 2023-07-22 13:00 | PCPTNOTE ---
Patient had to cancel to prepare for [place].
--- NOTE | 2023-08-03 16:34 | PTOPPROG ---
Assessment and note entered by Sandhya Mckay, PT, DPT Evaluation Information Assessment Status Progress Diagnosis R below knee amputation Onset 10/22/22 Subjective Information Pt states she has been using the cane more and more daily. She can be up and moving around on her leg for about 30 min max. She states she notices she drags her foot and stumble more when she gets tired. Assessment PT Clinical Summary Roya presents to therapy today for her progress report following 16 visits of skilled therapy to treat the deficits related to a R BKA on 10/22/22, she received her prosthesis on 04/21/23. She has progressed to ambulating with a quad cane, she does this with a very decreased gait speed and stride length. She continues to have functional balance scores that place her at an increased risk for falls. She is making consistent progress towards her therapy goals. Continuation of skilled therapy services are indicated for gait training, functional movement training, to improve strength , and to return to PLOF with minimal limitations. Plan of Care Interventions Check Out for Orthotic/Pr,Electrical Stimulation, Gait Training,Hot Pack/Cold Pack,Manual Therapy, Neuro Re-education,Patient/Caregiver Educati, Therapeutic Activities,Therapeutic Exercise PT Services Indicated Yes Treatment Frequency and 2x/wk for 8 visits Duration These treatments will address the objective and functional deficits as defined above. The patient will be advanced safely and appropriately in order for the patient to progress towards his/her prior level of function. Additional exercises will be introduced and as well as a comprehensive home exercise program upon discharge, if needed, ?to ensure carryover of functional gains achieved in the clinic. This treatment plan has been reviewed and agreement upon by the patient.
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
--- NOTE | 2023-08-31 14:29 | PTOPPROG ---
Assessment and note entered by Sandhya Mckay, PT, DPT Evaluation Information Assessment Status Progress Diagnosis R below knee amputation Onset 10/22/22 Subjective Information Pt states she still feels unstable when walking outside. She states she also cannot walk/stand long enough to move through the grocery store. She states she is progressing okay but not as quick as she would like. Assessment PT Clinical Summary Roya presents to therapy today for her progress report following 23 visits of skilled therapy to treat the deficits related to a R BKA on 10/22/22, she received her prosthesis on 04/21/23. She has progressed to ambulating primarily with her quad cane but still uses walker and WC for longer distances. She is making slow but consistent progress with her gait speed, quad strength, and functional balance. Continuation of skilled therapy services are indicated for gait training, functional movement training, to improve strength, and to return to PLOF with minimal limitations. Plan of Care Interventions Check Out for Orthotic/Pr,Electrical Stimulation, Gait Training,Hot Pack/Cold Pack,Manual Therapy, Neuro Re-education,Patient/Caregiver Educati, Therapeutic Activities,Therapeutic Exercise PT Services Indicated Yes Treatment Frequency and 2x/wk for 8 visits Duration These treatments will address the objective and functional deficits as defined above. The patient will be advanced safely and appropriately in order for the patient to progress towards his/her prior level of function. Additional exercises will be introduced and as well as a comprehensive home exercise program upon discharge, if needed, ?to ensure carryover of functional gains achieved in the clinic. This treatment plan has been reviewed and agreement upon by the patient.
--- NOTE | 2023-09-02 12:32 | PCPTNOTE ---
This treatment is being continued on visit number [id number]. Please see documentation on both accounts to view progress. Completed interventions, outcomes, and problems have been marked as Inactive to facilitate the copying of the Care plan routine for recurring accounts.
== END 2023-09-02 11:52 | disposition still patient (30) ==
LOC: ANHGOSHPT 13:30
PROVIDERS: PCP Family Medicine; Visit Provider Family Medicine
DX: S88.911A Complete traumatic amputation of right lower leg, level unspecified, initial encounter (principal)
CPT/HCPCS: 97110; 97112; 97116; 97161; 97530; 97750

== ENCOUNTER 2023-09-28 08:27 | Outpatient (CLI) | payer MEDICARE, OTHER, SELFPAY ==
[2023-09-28 19:03] LABS: Basophils Absolute Auto 0.1 K/mm3 (0.0-0.1); Basophils Percent Auto 1.1 % (0.2-1.2); Eosinophils Absolute Auto 0.5 K/mm3 (0-0.3); Eosinophils Percent Auto 7.3 % (0-4.4); Hematocrit 39.7 % (37.0-47.0); Hemoglobin 12.4 g/dL (12.0-15.0); Immature Granulocyte Absolute 0.01 K/mm3 (0.00-0.031); Immature Granulocyte Percent A 0.1 % (0-0.5); Lymphocytes Absolute Auto 1.93 K/mm3 (0.9-3.2); Mean Corpuscular HGB Conc 31.2 g/dl (32-36); Mean Corpuscular Hemoglobin 31.6 pg (26-34); Mean Corpuscular Volume 101.3 fl (80-100); Mean Platelet Volume 9.7 fl (7.4-10.4); Monocytes Absolute Auto 0.4 K/mm3 (0.1-0.6); Monocytes Percent Auto 6.2 % (2.6-8.5); Neutrophils Absolute Auto 4.2 K/mm3 (1.3-6.7); Neutrophils Percent Auto 58.3 % (45.5-73.1); Platelet Count Result 270 k/mm3 (150-375); Red Blood Count 3.92 M/mm3 (4.2-5.4); Red Cell Distribution Width 13.1 % (11.5-14.5); White Blood Count 7.2 K/mm3 (4.5-10.0)
[2023-09-28 20:31] LABS: Alanine Aminotransferase 14 U/L (6-35); Albumin Level 3.9 g/dL (3.5-5.1); Alkaline Phosphatase 77 U/L (38-126); Anion Gap 3 mmol/L (8-16); Aspartate Amino Transferase 60 U/L (14-36); Bilirubin,Total 0.3 mg/dL (0.2-1.3); Blood Urea Nitrogen 18 mg/dL (7-17); Calcium 9.9 mg/dL (8.4-10.2); Carbon Dioxide 31 mmol/L (22-30); Chloride 103 mmol/L (98-107); Cholesterol 162 mg/dL (0-200); Estimated Glomerular Filt Rate > 60; HDL Direct 42 mg/dL; LDL Cholesterol Direct 84 mg/dL; Sodium 137 mmol/L (137-145); Triglycerides 162 mg/dL (<150)
[2023-09-28 21:53] LABS: Glucose 59 mg/dL (65-110)
== END 2023-09-28 08:28 | disposition home or self-care (01) ==
LOC: ANHGOSHLAB 08:28
PROVIDERS: PCP Family Medicine; Visit Provider Family Medicine
DX: E78.5 Hyperlipidemia, unspecified (principal); D64.9 Anemia, unspecified; E87.1 Hypo-osmolality and hyponatremia; R74.01 Elevation of levels of liver transaminase levels
CPT/HCPCS: 36415; 80053; 80061; 85025

== ENCOUNTER 2023-11-14 08:45 | Outpatient (RCR) | payer MEDICARE, OTHER, SELFPAY ==
--- NOTE | 2023-09-02 12:32 | PCPTNOTE ---
The treatment documented on this account is a continuation of the treatment documented on visit number [id number]. Please see documentation on both accounts to view progress. The Plan of Care has been transitioned and updated within the new V#. I have addressed and agree with the discipline specific Problems, Interventions, and Goals for the current certification period. Completed interventions, outcomes, and problems have been marked as Inactive to facilitate the copying of the Care plan routine for recurring accounts.
--- NOTE | 2023-10-03 11:41 | PTOPPROG ---
Assessment and note entered by Sandhya Mckay, PT, DPT Evaluation Information Assessment Status Progress Diagnosis R below knee amputation Onset 10/22/22 Subjective Information Pt states she feels like she is getting better and better daily. She states she still struggles with standing/walking for more than 5 mins or so at a time. She also is still unable to get onto the ground which is important as pt likes gardening. Assessment PT Clinical Summary Roya presents to therapy today for her progress report following 32 visits of skilled therapy to treat the deficits related to a R BKA on 10/22/22, she received her prosthesis on 04/21/23. She has progressed to ambulating primarily with her quad cane but still uses walker and WC for longer distances. Her gait speed, TUG score, and 5xSTS score continue to make consistent improvements. She continues to have limited standing tolerance and decreased functional mobility. Continuation of skilled therapy services are indicated for gait training, functional movement training, to improve strength, and to return to PLOF with minimal limitations. Plan of Care Interventions Gait Training,Hot Pack/Cold Pack,Manual Therapy, Neuro Re-education,Patient/Caregiver Educati, Therapeutic Activities,Therapeutic Exercise,Self- Care/Home Management PT Services Indicated Yes Treatment Frequency and 2x/wk for 8 visits Duration These treatments will address the objective and functional deficits as defined above. The patient will be advanced safely and appropriately in order for the patient to progress towards his/her prior level of function. Additional exercises will be introduced and as well as a comprehensive home exercise program upon discharge, if needed, ?to ensure carryover of functional gains achieved in the clinic. This treatment plan has been reviewed and agreement upon by the patient.
--- NOTE | 2023-10-26 09:47 | PCPTNOTE ---
Patient called & cancelled scheduled appointment this date due to being ill. She states she will call back to reschedule.
--- NOTE | 2023-11-14 09:29 | PTOPDC ---
Assessment and note entered by Sandhya Mckay, PT, DPT Evaluation Information Assessment Status Discharge - Pt Not Present Diagnosis R below knee amputation Onset 10/22/22 Subjective Information Pt states she has progressed from the quad cane to a single point cane. She states standing for long periods of time is still the most difficult, she can stand for about 15 mins at a time. She states she has made so much progress with therapy but knows getting 100% confident will take time. She wishes to be discharged at this time. Reported Pain Level Pain Score 0: Self Report Assessment PT Clinical Summary Roya presents to therapy today for her progress report following 40 visits of skilled therapy to treat the deficits related to a R BKA on 10/22/22, she received her prosthesis on 04/21/23. She has progressed to ambulating with a straight cane but still continues to use a WC for community distances. She demonstrates improved LE strength, confident with movement, and improved functional independence since starting therapy. Pt is making slow but consistent progress towards her therapy goals. Pt wishes to be discharged at this time.
== END 2023-11-14 15:00 | disposition home or self-care (01) ==
LOC: ANHGOSHPT 08:45
PROVIDERS: PCP Family Medicine; Visit Provider Family Medicine
DX: S88.911A Complete traumatic amputation of right lower leg, level unspecified, initial encounter (principal)
CPT/HCPCS: 97110; 97112; 97116; 97530; 97750; 99199

== ENCOUNTER 2023-11-23 13:32 | Emergency (ER) | payer MEDICARE, OTHER, SELFPAY ==
--- NOTE | 2023-11-23 13:37 | ED.EAR ---
HPI - Ear Problem General Chief complaint: Ear Stated complaint: EAR CLOGGED Time Seen by Provider: 11/23/23 13:52 Source: patient and RN notes reviewed Mode of arrival: ambulatory Limitations: no limitations History of Present Illness HPI Narrative: 73-year-old female presents with concern for clogged right ear. She reports she has been using Debrox and oils to soften the wax, attempted removal home without relief. She denies upper respiratory infection symptoms, fever, drainage from the ear. MD Complaint: decreased hearing Related Data Home Medications Medication Instructions Recorded Confirmed zinc 50 mg tablet 50 mg PO DAILY 01/20/21 11/23/23 multivitamin 1 tablet PO DAILY 04/12/22 11/23/23 Ocuvite See Rx Instructions .Route .COMPLEX 06/10/22 11/23/23 cholecalciferol (vitamin D3) 10 10 mcg PO DAILY 06/10/22 11/23/23 mcg (400 unit) capsule calcium carbonate 500 mg PO DAILY 05/02/23 11/23/23 Allergies Allergy/AdvReac Type Severity Reaction Status Date / Time cyclobenzaprine Allergy Severe orthostasis Verified 11/23/23 13:43 sulfamethoxazole Allergy Intermediate Rash Verified 11/23/23 13:43 [From Bactrim] trimethoprim [From Bactrim] Allergy Intermediate Rash Verified 11/23/23 13:43 amoxicillin AdvReac Severe Gastrointestinal Verified 11/23/23 13:43 Upset adhesive tape AdvReac Rash Verified 11/23/23 13:43 nickel AdvReac Itching/BLI Verified 11/23/23 13:43 STERS nitrofurantoin Allergy Unknown rash Uncoded 11/23/23 13:43 Review of Systems Review of Systems: CONSTITUTIONAL: Denies malaise, chills, sweats, or fever. EYES: Denies visual changes, redness, or discharge. ENT: Denies rhinorrhea, congestion, sinus pain, and sore throat. Reports right ear clogged CARDIOVASCULAR: Denies chest pain, palpitations, or edema. RESPIRATORY: Denies cough. Denies dyspnea. GASTROINTESTINAL: Denies abdominal pain, nausea, vomiting, diarrhea SKIN: Denies rash or itching. MUSCULOSKELETAL: Denies myalgia. NEUROLOGIC: Denies headache. 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 Mallet finger of right finger(s) Nicotine dependence, unspecified, uncomplicated Osteopenia after menopause Preoperative testing Right knee DJD Squamous cell skin cancer, face Ulcerative (chronic) pancolitis without complications Unilateral primary osteoarthritis, right hip Surgical History Surgical History History of bunionectomy History of lumbar surgery L4 and 5 History of partial hysterectomy History of removal of pigmented skin lesion History of stress incontinence procedure using tension free vaginal tape History of total right hip arthroplasty S/P AKA (above knee amputation) unilateral S/P tonsillectomy and adenoidectomy S/P total right hip arthroplasty 06/02/2022 Family History Family History Father Family history of glaucoma Hypertension Family history of elevated blood lipids Family history of cardiovascular disease Cerebrovascular accident Mother Family history of cardiovascular disease Social History Social History Social History: The patient stated that she stop smoking March of this year in preparation of her hip surgery. She needed denies any alcohol marijuana or illicit drugs. The patient lives with her and has 4 children. She is retired from [employer]. 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
[2023-11-23 13:51] VITALS: BP 170/76; PULSE 66; RESP 16; TEMP 36.6; O2SAT 98
== END 2023-11-23 14:14 | disposition home or self-care (01) ==
PROVIDERS: Emergency Provider Nurse Practitioner; PCP Family Medicine
DX: H61.21 Impacted cerumen, right ear (principal); Z87.891 Personal history of nicotine dependence; L64.9 Androgenic alopecia, unspecified; G11.9 Hereditary ataxia, unspecified; I10 Essential (primary) hypertension; K21.9 Gastro-esophageal reflux disease without esophagitis; M85.80 Other specified disorders of bone density and structure, unspecified site; M16.12 Unilateral primary osteoarthritis, left hip; Z85.828 Personal history of other malignant neoplasm of skin; Z90.711 Acquired absence of uterus with remaining cervical stump; Z96.641 Presence of right artificial hip joint; Z89.611 Acquired absence of right leg above knee; Z95.820 Peripheral vascular angioplasty status with implants and grafts
CPT/HCPCS: 69210; 99212; G0463

== ENCOUNTER 2024-07-24 09:33 | Outpatient (CLI) | payer MEDICARE, OTHER, SELFPAY ==
--- NOTE | 2024-07-24 10:45 | NEURO_ITS ---
Impression: # Complains of numbness of hands. ? # Mild right Carpal Tunnel Syndrome. ? # No ulnar neuropathy. ? # Normal needle/EMG exam. Nerve Conduction Studies Anti Sensory Summary Table ?Stim Site NR Peak (ms) P-T Amp (?V) Site1 Site2 Delta-P (ms) Dist (cm) Mason (m/s) Left Median Anti Sensory (2-3nd Digit) Wrist ? 3.2 30.3 Wrist 2-3nd Digit 3.2 14.0 44 Wrist ? 3.1 15.3 Wrist 2-3nd Digit 3.2 14.0 44 Right Median Anti Sensory (2-3nd Digit) Wrist ? 4.1 19.3 Wrist 2-3nd Digit 4.1 14.0 34 Wrist ? 4.6 6.9 Wrist 2-3nd Digit 4.1 14.0 34 Left Radial Anti Sensory (Base 1st Digit) Wrist ? 1.7 26.4 Wrist Base 1st Digit 1.7 0.0 Right Radial Anti Sensory (Base 1st Digit) Wrist ? 2.2 20.9 Wrist Base 1st Digit 2.2 0.0 Left Ulnar Anti Sensory (5th Digit) Wrist ? 2.2 21.1 Wrist 5th Digit 2.2 14.0 64 Right Ulnar Anti Sensory (5th Digit) Wrist ? 2.3 45.1 Wrist 5th Digit 2.3 14.0 61 Motor Summary Table ?Stim Site NR Onset (ms) O-P Amp (mV) Site1 Site2 Delta-0 (ms) Dist (cm) Mason (m/s) Left Median Motor (Abd Poll Brev) Wrist ? 3.7 4.2 Elbow Wrist 4.1 26.0 63 Elbow ? 7.8 5.2 Right Median Motor (Abd Poll Brev) Wrist ? 4.1 1.9 Elbow Wrist 3.9 26.0 67 Elbow ? 8.0 2.2 Left Ulnar Motor (Abd Dig Minimi) Wrist ? 2.3 7.1 A Elbow Wrist 4.7 28.0 60 A Elbow ? 7.0 5.1 Right Ulnar Motor (Abd Dig Minimi) Wrist ? 2.7 5.6 A Elbow Wrist 4.7 28.0 60 A Elbow ? 7.4 4.2 F Wave Studies ?NR F-Lat (ms) L-R F-Lat (ms) Left Median (Mrkrs) (Abd Poll Brev) ? 28.68 0.06 Right Median (Mrkrs) (Abd Poll Brev) ? 28.74 0.06 Left Ulnar (Mrkrs) (Abd Dig Min) ? 28.24 0.09 Right Ulnar (Mrkrs) (Abd Dig Min) ? 28.15 0.09 EMG ?Side Muscle Nerve Root Ins Act Fibs Amp Dur Recrt Comment Right 1stDorInt Ulnar C8-T1 Nml Nml Nml Nml Nml Right Ext Indicis Radial (Post Int) C7-8 Nml Nml Nml Nml Nml Right Ext Digitorum Radial (Post Int) C7-8 Nml Nml Nml Nml Nml Right BrachioRad Radial C5-6 Nml Nml Nml Nml Nml Right PronatorTeres Median C6-7 Nml Nml Nml Nml Nml Right Abd Poll Brev Median C8-T1 Nml Nml Nml Nml Nml Right ABD Dig Min Ulnar C8-T1 Nml Nml Nml Nml Nml Left 1stDorInt Ulnar C8-T1 Nml Nml Nml Nml Nml Left Ext Indicis Radial (Post Int) C7-8 Nml Nml Nml Nml Nml Left Ext Digitorum Radial (Post Int) C7-8 Nml Nml Nml Nml Nml Left BrachioRad Radial C5-6 Nml Nml Nml Nml Nml Left PronatorTeres Median C6-7 Nml Nml Nml Nml Nml Left Abd Poll Brev Median C8-T1 Nml Nml Nml Nml Nml Left ABD Dig Min Ulnar C8-T1 Nml Nml Nml Nml Nml MTDD
--- OUTSIDE RECORDS SUMMARY | 2024-07-31 16:28 | XMS_ITS | Patient Health Record ---
Author Organization [facility] Address [address] [place] [address] Care Team Providers Care Rotor Casting Machine Operator Name Role Phone Gelacio Justin MD Primary Care Provider Unava ilable REASON FOR REFERRAL No Information PLAN OF TREATMENT Pending Test Test Name Order Date Colonoscopy 06/30/2018 Insurance Providers Payer Name Payer Address Payer Phone Subscriber Number Group Number Insured Name Patient Relationship to Insured Coverage Start Date Coverage End Date Medicare-I L - Part A Medicare [address] [facility] [place] [id number] Jillian Riddle Self - patient is the insured for Life - Medicare Sup [address] [place], [place] [id number] Jillian Riddle Self - patient is the insured Medicare-M O Medicare [address] [address] [place], [place] [id number] Jillian Riddle Self - patient is the insured
== END 2024-07-24 09:34 | disposition home or self-care (01) ==
LOC: ANHNEURO 09:34
PROVIDERS: PCP Family Medicine; Visit Provider Family Medicine
DX: R20.2 Paresthesia of skin (principal); I73.9 Peripheral vascular disease, unspecified; G56.03 Carpal tunnel syndrome, bilateral upper limbs
CPT/HCPCS: 95886; 95911

== ENCOUNTER 2025-02-07 00:55 | Day surgery (SDC) | payer MEDICARE, OTHER, SELFPAY ==
[2025-01-22 15:14] VITALS: BMI 23.8
--- NOTE | 2025-01-22 15:43 | PC.NURSE ---
Spoke with _PATIENT regarding medication _plavix . __Patient_verbalizes understanding that the last dose is to be taken on _01/31/25 and the Endoscopist will instruct them when to restart after the procedure.
--- OUTSIDE RECORDS SUMMARY | 2025-02-07 00:59 | XMS_ITS | Clinical Summary ---
Author Organization [facility] Address [address] [place] [id number] Care Team Providers Care Hydroelectric Machinery Mechanic Name Role Phone Gelacio Justin MD Primary Care Provider [phone] Allergies Active Allergy Reactions Criticality Noted Date Comments Adhesive Itching Low 06/03/2022 Amoxicillin Stomach upset Medium 10/18/2022 Nickel Blisters High 11/22/2022 Medications cyanocobalamin (Vitamin B-12) 1,000 mcg tablet Take 1 tablet (1,000 mcg total) by mouth daily Active zinc 50 mg tablet Take 1 tablet by mouth daily Active cholecalciferol (VITAMIN D-3) 400 unit capsule Take 1 tablet/capsule (400 Units total) by mouth daily Active multivitamin capsule Take 1 capsule by mouth daily Women over 50 multivitamin Active multivitamin-mi nerals-lutein tablet Take 1 tablet by mouth daily Vision Plus Lutein Active calcium carbonate-vitam in D3 1,500 mg (600 mg elemental)-400 unit tablet,chewable Take 2 tablets by mouth daily Active metoprolol XL (TOPROL-XL) 25 mg extended release tablet Take 0.5 tablets (12.5 mg total) by mouth 2 (two) times a day Patient is 12.5mg instead Active omeprazole (PriLOSEC) 20 mg capsule Take 1 capsule (20 mg total) by mouth daily Active aspirin 81 mg chewable tabletIndicatio ns:Thrombosis prevention Take 1 tablet (81 mg total) by mouth daily 30 tablet 2 Active simvastatin (ZOCOR) 10 mg tablet Take 1 tablet (10 mg total) by mouth nightly 30 tablet 2 Active amLODIPine (NORVASC) 2.5 mg tablet Take 1 tablet (2.5 mg total) by mouth daily 30 tablet 3 Active Additional Information Patient not taking.Reported on 12/14/2022 tamsulosin (FLOMAX) 0.4 mg extended release capsule Take 1 capsule (0.4 mg total) by mouth nightly as needed 3 Active clopidogreL (PLAVIX) 75 mg tablet Take 1 tablet (75 mg total) by mouth daily Active HYDROcodone-manuel taminophen (NORCO) 5-325 mg per tabletIndicatio ns:Pain Take 1 tablet by mouth every 6 (six) hours as needed for pain 30 tablet 3 Active Additional Information Patient not taking.Reported on 01/20/2023 gabapentin (NEURONTIN) 100 mg capsule Take 1 capsule (100 mg total) by mouth 2 (two) times a day 60 capsule 3 Active Additional Information Patient not taking.Reported on 02/07/2024 estradioL (ESTRACE) 0.5 mg tablet Take 1 tablet (0.5 mg total) by mouth daily 3 Active lisinopriL (PRINIVIL,ZESTR IL) 20 mg tablet Take 1 tablet (20 mg total) by mouth daily 3 Active Active Problems Problem Noted Date Diagnosed Date History of right above knee amputation 4 Atherosclerosis of [place] of both lower extremities with intermittent claudication 04/19/2023 Below-knee amputation of right lower extremity 0 11/22/2022 Assessment & Plan (11/23/2022 2:03 PM CDT): Impression: Stable marginal skin necrosis right BKA stump. Mild erythema. Suspicious for developing soft tissue infection Plan: Oral antibiotics prescribed. Continue pain control. Patient follow-up in 1 week for re-evaluation of her nonhealing right BKA surgical wound Right BKA infection 11/17/2022 Assessment & Plan (01/25/2023 4:23 PM CDT): Impression: Near healed right below-knee amputation. She has a very small subcentimeter portion to the medial aspect of her amputation stump that is superficial and open. No concern for infection. Plan: Referral to local customer relations specialist for evaluation and fitting of a right lower extremity below-knee prosthesis. Moderate malnutrition 10/25/2022 Acute pain of right lower extremity 10/16/2022 Mixed hyperlipidemia 07/14/2022 Assessment & Plan (07/14/2022 5:18 PM BOILERMAKER FITTER): Impression: Chronic hyperlipidemia, controlled with statin therapy. Plan: Continue statin therapy as per primary care provider. Primary hypertension 07/14/2022 Assessment & Plan (07/14/2022 5:17 PM BOILERMAKER FITTER): Impression: Chronic hypertension, controlled medications. Blood pressure stable. Plan: Continue blood pressure management as per primary care provider. 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 Assessment & Plan (07/14/2022 5:19 PM BOILERMAKER FITTER): Impression: Patient is status post right popliteal artery thrombectomy and right femoral popliteal bypass graft for ischemic right leg after undergoing a right hip replacement. Patient reports her discomfort to her right lower extremity has resolved. Right lower extremity is warm, well perfused with audible signals throughout right lower extremity. Sutures were removed from right groin and right medial calf by the rehab facility. Plan: Continue ongoing risk factor modifications. Patient to follow-up in 4 weeks for re-evaluation with arterial Doppler. PAD (peripheral artery disease) Vascular graft occlusion Hypokalemia Hyponatremia Immunizations Immunization Administration Dates Next Due Influenza, Quadrivalent, Hig h Dose, Preservative Free, Intrr 05/05/2022 Influenza, Quadrivalent, Rec ombinant, Egg Free, Preservative Free, Intramuscular 05/21/2021,04/18/2019 Influenza, Quadrivalent, Spl it, Preservative Free, Intramuscular 06/01/2018 Tdap 01/20/2021 Surgical History Surgery Date Site/Laterality Comments DE THRMBC DIR/W/CATH V/C ILIAC FEMPOP VEIN ABDL&LEG 06/09/2022 AORTIC ILIAC FEMORIAL ANGIOGRAM INTERVENTION 06/03/2022 Aorto femoral arteriogram VASCULAR SURGERY 09/29/2022 - 10/29/2022 Thrombectomy revision of right fem pop bypass graft BELOW KNEE LEG AMPUTATION 10/22/2022 Right TOTAL HIP ARTHROPLASTY 06/02/2022 Right HYSTERECTOMY 08/01/1975 - 07/31/1976 partial BUNIONECTOMY Bilateral SPINE SURGERY lumbar spine no hardware x 2 1979 and 1980 TONSILLECTOMY 08/01/1952 - 07/31/1953 Medical History Medical History Date Comments PAD (peripheral artery disease) 06/22/2021 Uterine cancer (HCC) 10/09/2014 Hypertension Hyperlipidemia Hx of radiation therapy x 5 - 6 treatments ovaries states aged bladder from radiation was told Anemia Social History Tobacco Use Types Packs/Day Years Used Date Smoking Tobacco: Former Cigarettes 0.3 50 0 04/01/1972 - 04/01/2022 Passive Smoke Exposure: Past Smokeless Tobacco: Never Tobacco Cessation:Counseling Given: Not Answered Passive Exposure Comments:4-6 cigarettes/day for 50 years Social Connection and Isolat ion Panel [NHANES] Answer Date Recorded In a typical week, how many times do you talk on the phone with family, friends, or neighbors? More than three times a week 11/22/2022 How often do you get togethe r with friends or relatives? More than three times a week 11/22/2022 How often do you attend chur ch or mandaen services? 1 to 4 times per year 11/22/2022 Do you belong to any clubs o r organizations such as episcopal groups, unions, fraternal or athletic groups, or school groups? No 11/22/2022 How often do you attend meet ings of the clubs or organizations you belong to? Never 11/22/2022 Are you , , di vorced, , never , or living with a partner? 11/22/2022 AUDIT-C Answer Date Recorded Q1: How often do you have a drink containing alcohol? Never 11/22/2022 Q2: How many drinks containi ng alcohol do you have on a typical day when you are drinking? Patient does not drink Q3: How often do you have si x or more drinks on one occasion? Never 11/22/2022 Overall Financial Resource Strain (CARDIA) Answe r Date Recorded How hard is it for you to pa y for the very basics like food, housing, medical care, and heating? Not hard at all 11/22/2022 Hunger Vital Sign Answer Date Recorded Within the past 12 months, y ou worried that your food would run out before you got the money to buy more. Never true 11/23/19 23 Within the past 12 months, t he food you bought just didn't last and you didn't have money to get more. Never true 11/22/2022 PRAPARE - Transportation Answer Date Re corded In the past 12 months, has l ack of transportation kept you from medical appointments or from getting medications? No 10/31 In the past 12 months, has l ack of transportation kept you from meetings, work, or from getting things needed for daily living? No 11/22/2022 Housing Stability Vital Sign Answer Can e Recorded In the last 12 months, was t here a time when you were not able to pay the mortgage or rent on time? No 11/22/2022 In the last 12 months, how many places have you lived? 1 11/22/2022 In the last 12 months, was t here a time when you did not have a steady place to sleep or slept in a residential (including now)? No 11/22/2022 Personal Safety Answer Date Recorded Have you ever been in or are you currently in a harmful physical or emotional relationship or is someone making you feel afraid or unsafe? Denies 11/22/2022 Comments No Sex and Gender Information Value Date Recorded Sex Assigned at Not on file Legal Sex Female 7:05 AM BOILERMAKER FITTER Gender Identity Not on file Sexual Orientation Not on file Obstetrics History Last Filed Vital Signs Vital Sign Reading Time Taken Comments Blood Pressure 122/73 02/07/2024 9:01 AM CDT Pulse 66 02/07/2024 9:01 AM CDT Temperature 36.6 C (97.9 F) 11/26/2022 7:24 AM CDT Respiratory Rate 18 11/26/2022 7:24 AM CDT Oxygen Saturation 95% 11/26/2022 7:24 AM CDT Inhaled Oxygen Concentration - - Weight 57.6 kg (127 lb) 02/07/2024 9:01 AM CDT Height 157.5 cm (5' 2) 02/07/2024 9:01 AM CDT Body Mass Index 23.23 02/07/2024 9:01 AM CDT Plan of Treatment Health Maintenance Due Date Last Done Comments Depression Screening 1950 Hepatitis C Screening 1950 Osteoporosis Screening-Bone Density Scan 1948 Hepatitis B Screening 1966 Pneumococcal vaccine 65+ (1 of 1 - PCV) 1998 Zoster Vaccine (1 of 2) 1998 Well Visit 65+ 2013 Fall Risk Assessment 11/27/2023 11/26/2022 Covid-19 Vaccine (4 - 2023-2 5 season) 2024 06/30/2021, 11/04/2020, 09/10/2020 Influenza Vaccine (Season Ended) 2025 05/05/2022, 05/21/2021, 04/18/2019, Additional history exists DTaP/Tdap/Td Vaccine (2 - Td or Tdap) 01/20/2031 01/20/2021 Medical Devices Implanted Type Area Presser And Shaper Knitted Goods Device Identifier Shelf Expiration Date Model / Serial / Lot [employer] Barnet 8mm 80cm Stretch Thin Wall Graft Vascular Heparin Propaten [id number] - [id number] - [id number] Implanted:Qty: 1 on 06/04/2022 by Rahat Perry MD at [facility] Right: Femur [employer] [id number] 06/02/2025 [id number] / [id number] / W[employer] 6mm 40cm Stretch Peripheral Thin Wall Graft Vascular Barnet-Guero [id number] - [id number] - [id number] Implanted:Qty: 1 on 10/18/2022 by Rahat Perry MD at [facility] Right: Leg W[employer] [id number] 02/24/2026 [id number] / [id number] / [employer] Weck Horizon 24 Cartridge Ligate Triangulate Cross Section Heart [id number] - [id number] Implanted:Qty: 15 on 10/18/2022 by Rahat Perry MD at [facility] Right: Leg [employer] [id number] / / Insurance MEDICARE FOR LIFE FOR LIFE MEDICARE FOR LIFE Advance Directives For more information, please contact: [phone] * Full Code (Latest Code Status on File) Date Activated Date Inactivated Comments 11/22/2022 10:12 AM 11/26/2022 6:26 PM * Full Code Date Activated Date Inactivated Comments 10/16/2022 11:50 PM 10/28/2022 8:53 PM * Full Code Date Activated Date Inactivated Comments 06/02/2022 6:30 PM 06/08/2022 9:24 PM Care Teams Hydroelectric Machinery Mechanic Relationship Specialty Start Date End Date Gelacio Justin MD PCP - General Family Medicine 06/07/22
--- OUTSIDE RECORDS SUMMARY | 2025-02-07 00:59 | XMS_ITS | Patient Health Record ---
Author Organization [facility] Address [address] [place] [address] Care Team Providers Care Wiper Blender Name Role Phone Gelacio Justin MD Primary Care Provider Unava ilable Reason For Referral No Information Plan Of Treatment Pending Test Test Name Order Date Colonoscopy 06/30/2018 Insurance Providers Payer Name Payer Address Payer Phone Subscriber Number Group Number Insured Name Patient Relationship to Insured Coverage Start Date Coverage End Date Medicare-I L - Part A Medicare [address] [facility] [place] [place] [id number] Jillian Riddle Self - patient is the insured for Life - Medicare Sup [address] [place], [place] [id number] Jillian Riddle Self - patient is the insured Medicare-M O Medicare [address] [address] [place], [place] [id number] Jillian Riddle Self - patient is the insured
--- OUTSIDE RECORDS SUMMARY | 2025-02-07 00:59 | XMS_ITS | Referral Summary ---
Author Organization [facility] Address [address] [place] [address] Care Team Providers Care Gold Nib Grinder Name Role Phone Gelacio Justin MD Primary Care Provider [phone] Allergies Active Allergy Reactions Criticality Noted Date [...] right above knee amputation 4 Atherosclerosis of [place] of both lower extremities with [...] concern for infection. Plan: Referral to local chief clinical dietitian for evaluation and fitting of a right lower extremity below-knee prosthesis. Moderate malnutrition 10/25/2022 Acute pain of right lower extremity 10/16/2022 Mixed hyperlipidemia 07/14/2022 Assessment & Plan (07/14/2022 5:18 PM STRATEGY SPECIALIST): Impression: Chronic hyperlipidemia, controlled with statin therapy. Plan: Continue statin therapy as per primary care provider. Primary hypertension 07/14/2022 Assessment & Plan (07/14/2022 5:17 PM STRATEGY SPECIALIST): Impression: Chronic hypertension, controlled medications. Blood pressure stable. Plan: Continue blood pressure management as per primary care provider. 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 Assessment & Plan (07/14/2022 5:19 PM STRATEGY SPECIALIST): Impression: Patient is status post right popliteal [...] it, Preservative Free, Intramuscular 06/01/2018 Tdap 01/20/2021 Social History Tobacco Use Types Packs/Day Years [...] often do you attend chur ch or sabianist services? 1 to 4 times per year 11/22/2022 Do you belong to any clubs o r organizations such as gnosticism groups, unions, fraternal or athletic groups, or [...] on file Legal Sex Female 7:05 AM STRATEGY SPECIALIST Gender Identity Not on file Sexual Orientation Not on file Last Filed Vital Signs Vital Sign Reading [...] 02/07/2024 9:01 AM CDT Plan of Treatment Not on file Medical Devices Implanted Type Area Exhibition Specialist Device Identifier Shelf Expiration Date Model / Serial / Lot Wl [employer] Grayland 8mm 80cm Stretch Thin Wall Graft Vascular Heparin Propaten [id number] - [id number] - [id number] Implanted:Qty: 1 on 06/04/2022 by Rahat Perry MD at [facility] Right: Femur W[employer] [id number] 06/02/2025 [id number] / [id number] / Wl [employer] 6mm 40cm Stretch Peripheral Thin Wall Graft Vascular [employer]-Guero [id number] - [id number] - [id number] Implanted:Qty: 1 on 10/18/2022 by Rahat Perry MD at [facility] Right: Leg Wl [employer] [id number] 02/24/2026 [id number] / [id number] / [employer] Weck Horizon 24 Cartridge Ligate Triangulate Cross Section Heart [id number] - [id number] Implanted:Qty: 15 on 10/18/2022 by Rahat Perry MD at [facility] Right: Leg [employer] [id number] / / Insurance MEDICARE FOR LIFE [facility] FOR LIFE MEDICARE [facility] FOR LIFE Advance Directives For more information, please contact: [phone] * Full Code (Latest Code Status on File) Date Activated Date Inactivated Comments 11/22/2022 10:12 AM 11/26/2022 6:26 PM * Full Code Date Activated Date Inactivated Comments 10/16/2022 11:50 PM 10/28/2022 8:53 PM * Full Code Date Activated Date Inactivated Comments 06/02/2022 6:30 PM 06/08/2022 9:24 PM Care Teams Gold Nib Grinder Relationship Specialty Start Date End Date Gelacio Justin MD PCP - General Family Medicine 06/07/22
[2025-02-07 09:21] VITALS: BP 138/75; PULSE 88; RESP 18; TEMP 36.1; O2SAT 99; BMI 25.4
--- NOTE | 2025-02-07 09:24 | SUR.PREOP ---
Patient reports taking Plavix on 02/04/25. She was supposed to hold starting 01/31/25. Dr. Eric notified and aware. He is okay with proceeding.
[2025-02-07] MEDS: LACTATED RINGERS 1,000 ML 150 ML IV CONT (09:30)
--- NOTE | 2025-02-07 10:40 | P.HP_ITS ---
H&P: HPI History of Present Illness Date/Time: 02/07/25 10:40 Chief Complaint: History of colon polyps Narrative: The patient has a history of colonic polyps, the last colonoscopy was approximately 5 years ago. In addition, the patient has been told that she has colitis years ago, but at the present time she is asymptomatic from GI standpoint. 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 Preoperative testing Right knee DJD Mallet finger of right finger(s) correction use of drug Knee pain, right Cerebellar ataxia Androgenic alopecia Essential (primary) hypertension Gastro-esophageal reflux disease without esophagitis Irradiation cystitis with hematuria Nicotine dependence, unspecified, uncomplicated Osteopenia after menopause Squamous cell skin cancer, face Ulcerative (chronic) pancolitis without complications Unilateral primary osteoarthritis, right hip Surgical History Surgical History S/P AKA (above knee amputation) unilateral S/P total right hip arthroplasty 06/02/2022 History of removal of pigmented skin lesion S/P tonsillectomy and adenoidectomy History of total right hip arthroplasty History of partial hysterectomy History of lumbar surgery L4 and 5 History of bunionectomy History of stress incontinence procedure using tension free vaginal tape Family History Family History Father Family history of glaucoma Hypertension Family history of elevated blood lipids Family history of cardiovascular disease Cerebrovascular accident Mother Family history of cardiovascular disease Social History Social History Social History: The patient stated that she stop smoking March of this year in preparation of her hip surgery. She needed denies any alcohol marijuana or illicit drugs. The patient lives with her and has 4 children. She is retired from [employer]. Her is a durable power traffic law attorney for healthcare. Code status full code Smoking packs per day: 0.5 Smoking cigarettes per day: 10.0 Years smoked: 50 Smoking pack-years: 25.00 Smoking status: Former smoker Tobacco type: cigarettes Second hand tobacco smoke exposure: Yes Smoking end date: 04/01/22 Additional smoking assessment comments: STATES STOPPED SMOKING FOR UP COMING RT HIP SURGERY Alcohol intake: current Drinks per week: 0 Substance use: never Substance use type: does not use Other substance usage details: reports taking prescription meds as prescribed. no oxycodone for 3 months. Last use: notes rare ETOH use-last was 1/2 glass wine on Father's Day. 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 Gender identity (if verbalized by the patient): Female Spiritual care concerns: No Meds Home Medications and Allergies Home Medications ?Medication ?Instructions ?Recorded ?Confirmed ?Type zinc 50 mg tablet 50 mg PO DAILY 01/20/21 02/07/25 History multivitamin 1 tablet PO DAILY 04/12/22 02/07/25 History Ocuvite See Rx Instructions .Route .COMPLEX 06/10/22 02/07/25 History cholecalciferol (vitamin D3) 10 10 mcg PO DAILY 06/10/22 02/07/25 History mcg (400 unit) capsule aspirin 81 mg chewable tablet 81 mg PO DAILY@0800 #30 tabs 06/20/22 02/07/25 Rx (Children's Aspirin) cyanocobalamin (vitamin B-12) 1,000 mcg PO QAM #20 tabs 11/04/22 02/07/25 Rx 1,000 mcg tablet (Vitamin B-12) calcium carbonate 500 mg PO DAILY 05/02/23 02/07/25 History metoprolol succinate 25 mg 12.5 mg (1/2 x 25 mg) PO BID #90 09/14/24 02/07/25 Rx tablet,extended release 24 hr tabs (Toprol XL) omeprazole 20 mg capsule,delayed See Rx Instructions .Route 10/22/24 02/07/25 Rx release .COMPLEX #90 caps tamsulosin 0.4 mg capsule 0.4 mg PO HS #90 caps 10/26/24 02/07/25 Rx clopidogrel 75 mg tablet See Rx Instructions .Route 11/07/24 02/07/25 Rx .COMPLEX #30 tabs estradiol 0.5 mg tablet See Rx Instructions .Route 11/19/24 02/07/25 Rx .COMPLEX #90 tabs lisinopril 20 mg tablet See Rx Instructions .Route 12/28/24 02/07/25 Rx .COMPLEX #90 tabs simvastatin 10 mg tablet 10 mg PO HS #90 tabs 01/31/25 02/07/25 Rx gabapentin 100 mg capsule See Rx Instructions .Route 02/04/25 02/07/25 Rx .COMPLEX #60 caps Allergies Allergy/AdvReac Type Severity Reaction Status Date / Time cyclobenzaprine Allergy Severe orthostasis Verified 02/07/25 09:20 sulfamethoxazole (From Allergy Intermediate Rash Verified 02/07/25 09:20 Bactrim) trimethoprim (From Bactrim) Allergy Intermediate Rash Verified 02/07/25 09:20 amoxicillin AdvReac Severe Gastrointestinal Verified 02/07/25 09:20 Upset adhesive tape AdvReac Rash Verified 02/07/25 09:20 nickel AdvReac Itching/BLI Verified 02/07/25 09:20 STERS nitrofurantoin Allergy Unknown rash Uncoded 02/07/25 09:20 Vital Signs Vital Signs - 24 hr 02/07/25 09:21 Temperature 97 F L Pulse Rate 88 Respiratory Rate 18 Blood Pressure 138/75 Pulse Oximetry 99 Oxygen Delivery Room Air Exam Const: General: cooperative and healthy appearing Resp: Effort & Inspection: normal respiratory effort and able to speak in complete sentences Auscultation: clear to auscultation bilaterally Cardio: Rate: regular rate Rhythm: regular rhythm GI: Inspection: normal to inspection GI Palp: No No hepatosplenomegaly present Auscultation: normal bowel sounds Rectal Exam: deferred Skin: General skin exam: normal color Psych: Appearance: grossly normal Mental Status: mental status grossly normal Assessment and Plan Assessment and plan (1) History of colonic polyps: Code(s): Z86.0100 - Personal history of colon polyps, unspecified Status: Acute Assessment and Plan: The patient is deemed a good candidate for the procedure. Consent signed. Will proceed.
--- NOTE | 2025-02-07 10:50 | P.PNAN_ITS ---
Anes - Initial Pre Proc Eval Procedure: Operation Date: 02/07/25 10:30 Proposed Procedures p Colonoscopy - Delfino Eric MD Date/Time: 02/07/25 10:50 Surgeon: Delfino Eric MD Pre Op Diagnosis: Personal history of colon polyps, unspecified Patient Data Age: 74 Gender: F Height: 1.57 m Weight: 63 kg Last Vital Signs Temp 97 F L 02/07/25 09:21 Pulse 88 02/07/25 09:21 Resp 18 02/07/25 09:21 BP 138/75 02/07/25 09:21 Pulse Ox 99 02/07/25 09:21 O2 Del Method Room Air 02/07/25 09:21 Allergies Allergy/AdvReac Type Severity Reaction Status Date / Time cyclobenzaprine Allergy Severe orthostasis Verified 02/07/25 09:20 sulfamethoxazole (From Allergy Intermediate Rash Verified 02/07/25 09:20 Bactrim) trimethoprim (From Bactrim) Allergy Intermediate Rash Verified 02/07/25 09:20 amoxicillin AdvReac Severe Gastrointestinal Verified 02/07/25 09:20 Upset adhesive tape AdvReac Rash Verified 02/07/25 09:20 nickel AdvReac Itching/BLI Verified 02/07/25 09:20 STERS nitrofurantoin Allergy Unknown rash Uncoded 02/07/25 09:20 Home Medications ?Medication ?Instructions ?Recorded ?Confirmed ?Type zinc 50 mg tablet 50 mg PO DAILY 01/20/21 02/07/25 History multivitamin 1 tablet PO DAILY 04/12/22 02/07/25 History Ocuvite See Rx Instructions .Route .COMPLEX 06/10/22 02/07/25 History cholecalciferol (vitamin D3) 10 10 mcg PO DAILY 06/10/22 02/07/25 History mcg (400 unit) capsule aspirin 81 mg chewable tablet 81 mg PO DAILY@0800 #30 tabs 06/20/22 02/07/25 Rx (Children's Aspirin) cyanocobalamin (vitamin B-12) 1,000 mcg PO QAM #20 tabs 11/04/22 02/07/25 Rx 1,000 mcg tablet (Vitamin B-12) calcium carbonate 500 mg PO DAILY 05/02/23 02/07/25 History metoprolol succinate 25 mg 12.5 mg (1/2 x 25 mg) PO BID #90 09/14/24 02/07/25 Rx tablet,extended release 24 hr tabs (Toprol XL) omeprazole 20 mg capsule,delayed See Rx Instructions .Route 10/22/24 02/07/25 Rx release .COMPLEX #90 caps tamsulosin 0.4 mg capsule 0.4 mg PO HS #90 caps 10/26/24 02/07/25 Rx clopidogrel 75 mg tablet See Rx Instructions .Route 11/07/24 02/07/25 Rx .COMPLEX #30 tabs estradiol 0.5 mg tablet See Rx Instructions .Route 11/19/24 02/07/25 Rx .COMPLEX #90 tabs lisinopril 20 mg tablet See Rx Instructions .Route 12/28/24 02/07/25 Rx .COMPLEX #90 tabs simvastatin 10 mg tablet 10 mg PO HS #90 tabs 01/31/25 02/07/25 Rx gabapentin 100 mg capsule See Rx Instructions .Route 02/04/25 02/07/25 Rx .COMPLEX #60 caps Patient hx anesthesia problems: none Family hx anesthesia problems: none Results Review: All pre-operative results and documents have been reviewed as part of the pre- operative evaluation. 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 Preoperative testing Right knee DJD Mallet finger of right finger(s) half-way use of drug Knee pain, right Cerebellar ataxia Androgenic alopecia Essential (primary) hypertension Gastro-esophageal reflux disease without esophagitis Irradiation cystitis with hematuria Nicotine dependence, unspecified, uncomplicated Osteopenia after menopause Squamous cell skin cancer, face Ulcerative (chronic) pancolitis without complications Unilateral primary osteoarthritis, right hip Surgical History Surgical History S/P AKA (above knee amputation) unilateral S/P total right hip arthroplasty 06/02/2022 History of removal of pigmented skin lesion S/P tonsillectomy and adenoidectomy History of total right hip arthroplasty History of partial hysterectomy History of lumbar surgery L4 and 5 History of bunionectomy History of stress incontinence procedure using tension free vaginal tape Family History Family History Father Family history of glaucoma Hypertension Family history of elevated blood lipids Family history of cardiovascular disease Cerebrovascular accident Mother Family history of cardiovascular disease Social History Social History Social History: The patient stated that she stop smoking March of this year in preparation of her hip surgery. She needed denies any alcohol marijuana or illicit drugs. The patient lives with her and has 4 children. She is retired from [employer]. Her is a durable power bankruptcy attorney for healthcare. Code status full code Smoking packs per day: 0.5 Smoking cigarettes per day: 10.0 Years smoked: 50 Smoking pack-years: 25.00 Smoking status: Former smoker Tobacco type: cigarettes Second hand tobacco smoke exposure: Yes Smoking end date: 04/01/22 Additional smoking assessment comments: STATES STOPPED SMOKING FOR UP COMING RT HIP SURGERY Alcohol intake: current Drinks per week: 0 Substance use: never Substance use type: does not use Other substance usage details: reports taking prescription meds as prescribed. no oxycodone for 3 months. Last use: notes rare ETOH use-last was 1/2 glass wine on Father's Day. 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 HTN, hyperlipidemia, hx of sig PVD, off plavix for 3 days, cleared by PCP for procedure today. Informed Consent: The patient's anesthetic plan and its attendant risks and benefits were discussed with the patient/family/POA. Questions were solicited and answers provided to the satisfaction of the patient/family/POA.
[2025-02-07 11:18] VITALS: BP 136/74; PULSE 74; RESP 17; O2SAT 95
[2025-02-07 11:28] VITALS: BP 147/57; PULSE 70; RESP 15; O2SAT 95
[2025-02-07 11:38] VITALS: BP 164/78; PULSE 65; RESP 16; O2SAT 98
== END 2025-02-07 12:00 | disposition home or self-care (01) ==
PROVIDERS: PCP Family Medicine; Referring Provider Nurse Practitioner Family; Visit Provider Internal Medicine Gastroenterology
PROC: 0DJD8ZZ Inspection of Lower Intestinal Tract, Via Natural or Artificial Opening Endoscopic (ICD-10-PCS; CPT 45378; principal; 2025-02-07 10:30)
DX: Z12.11 Encounter for screening for malignant neoplasm of colon (principal); K57.30 Diverticulosis of large intestine without perforation or abscess without bleeding; E78.5 Hyperlipidemia, unspecified; I10 Essential (primary) hypertension; K21.9 Gastro-esophageal reflux disease without esophagitis; M16.11 Unilateral primary osteoarthritis, right hip; M17.11 Unilateral primary osteoarthritis, right knee; G11.9 Hereditary ataxia, unspecified; L64.9 Androgenic alopecia, unspecified; M85.88 Other specified disorders of bone density and structure, other site; Z79.899 Other long term (current) drug therapy; Z79.82 Long term (current) use of aspirin; Z79.02 Long term (current) use of antithrombotics/antiplatelets; Z98.890 Other specified postprocedural states; Z98.1 Arthrodesis status; Z89.619 Acquired absence of unspecified leg above knee; Z95.820 Peripheral vascular angioplasty status with implants and grafts; Z86.0100 Personal history of colon polyps, unspecified; Z87.891 Personal history of nicotine dependence; Z85.828 Personal history of other malignant neoplasm of skin; Z87.19 Personal history of other diseases of the digestive system; Z82.49 Family history of ischemic heart disease and other diseases of the circulatory system
CPT/HCPCS: G0105; J2003; J2704; J7120

== ENCOUNTER 2025-03-12 09:03 | Outpatient (CLI) | payer MEDICARE, OTHER, SELFPAY ==
--- OUTSIDE RECORDS SUMMARY | 2025-03-12 09:27 | XMS_ITS | Clinical Summary ---
Author Organization [facility] Address [address] [place] [id number] Care Team Providers Care Facility Manager Name Role Phone Gelacio Justin MD Primary Care Provider [phone] Allergies Active Allergy Reactions Criticality Noted Date [...] Active Additional Information Patient not taking.Reported on 02/18/2025 tamsulosin (FLOMAX) 0.4 mg extended release capsule [...] Active Additional Information Patient not taking.Reported on 02/18/2025 gabapentin (NEURONTIN) 100 mg capsule Take 1 capsule (100 mg total) by mouth 2 (two) times a day 60 capsule 3 Active estradioL (ESTRACE) 0.5 mg tablet Take 1 tablet (0.5 mg total) by mouth daily 3 Active lisinopriL (PRINIVIL,ZESTR IL) 20 mg tablet Take 1 tablet (20 mg total) by mouth daily 3 Active zinc gluconate 50 mg tablet Take 1 tablet (50 mg total) by mouth daily Active Active Problems Problem Noted Date Diagnosed Date History of right above knee amputation 4 Atherosclerosis of chick[place] indians[place] of both lower extremities with intermittent claudication 04/19/2023 Below-knee amputation of right lower extremity 0 11/22/2022 Assessment & Plan (02/19/2025 11:31 AM CDT): Deconditioning of right lower extremity leg musculature. Will refer patient to outpatient physical therapy Assessment & Plan (11/23/2022 2:03 PM CDT): [...] concern for infection. Plan: Referral to local flooring installer for evaluation and fitting of a right lower extremity below-knee prosthesis. Moderate malnutrition 10/25/2022 Acute pain of right lower extremity 10/16/2022 Mixed hyperlipidemia 07/14/2022 Assessment & Plan (07/14/2022 5:18 PM CABLE SPLICING TECHNICIAN): Impression: Chronic hyperlipidemia, controlled with statin therapy. Plan: Continue statin therapy as per primary care provider. Primary hypertension 07/14/2022 Assessment & Plan (07/14/2022 5:17 PM CABLE SPLICING TECHNICIAN): Impression: Chronic hypertension, controlled medications. Blood pressure stable. Plan: Continue blood pressure management as per primary care provider. 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 Assessment & Plan (07/14/2022 5:19 PM CABLE SPLICING TECHNICIAN): Impression: Patient is status post right popliteal [...] artery disease) Vascular graft occlusion Hypokalemia Hyponatremia Encounters Date Type Department Care Team Description 02/19/[address] [facility] Vascular and Vein Surgery [facility] [address] [place] [address] Becky Byrd MA 02/19/2025 Orders Only [facility] Vascular and Vein Surgery [address] [place] [address] [address] [place] [address] Max Sinha MD Right leg weakness (Primary Dx) 02/18/2025 1:00 PM CDT Office Visit [facility] Vascular and Vein Surgery [address] [place] [address] [address] [place] [id number] Suri Hendricks PA Atherosclerosis of chick[place]om[place] indians[place]eastern division artery of both lower extremities with intermittent claudication (Primary Dx); Mixed hyperlipidemia; Primary hypertension; Below-knee amputation of right lower extremity, subsequent encounter 02/18/[address] [facility] Medical [facility] Vascular and Vein Surgery [address] [place] [address] [address] [place] [address] Max Sinha MD Atherosclerosis of chick[place]om[place] indians[place]eastern division artery of both lower extremities with intermittent claudication (Primary Dx) 02/12/2025 8:26 AM CDT - 02/12/2025 11:59 PM CDT Hospital Encounter [facility] [address] [place] [address] [address] [place] [address] Atherosclerosis of chickahom[place] indians[place]eastern division artery of both lower extremities with intermittent claudication Discharge Disposition: Discharge to home or self care from Last 3 Months Immunizations Immunization Administration Dates Next Due Influenza, Quadrivalent, Hig h Dose, Preservative Free, Intrr 05/05/2022 Influenza, Quadrivalent, Rec ombinant, Egg Free, Preservative Free, Intramuscular 05/21/2021,04/18/2019 Influenza, Quadrivalent, Spl it, Preservative Free, Intramuscular 06/01/2018 Tdap 01/20/2021 Surgical History Surgery Date Site/Laterality Comments ID THRMBC DIR/W/CATH V/C ILIAC FEMPOP VEIN ABDL&LEG [...] cigarettes/day for 50 years Social Connection and Isolation Panel Answer Date Recorded In a typical week, how many times do you talk on the phone with family, friends, or neighbors? More than three times a week 11/22/2022 How often do you get togethe r with friends or relatives? More than three times a week 11/22/2022 How often do you attend chur ch or yazdanism services? 1 to 4 times per year 11/22/2022 Do you belong to any clubs o r organizations such as hoahaoism groups, unions, fraternal or athletic groups, or [...] place to sleep or slept in a chcf (including now)? No 11/22/2022 Personal Safety Answer Date Recorded Have you ever been in or are you currently in a harmful physical or emotional relationship or is someone making you feel afraid or unsafe? Denies 11/22/2022 Comments No Sex and Gender Information Value Date Recorded Sex Assigned at Not on file Legal Sex Female 7:05 AM CABLE SPLICING TECHNICIAN Gender Identity Not on file Sexual Orientation Not on file Obstetrics History Last Filed Vital Signs Vital Sign Reading Time Taken Comments Blood Pressure 137/69 02/18/2025 1:03 PM CDT Pulse 63 02/18/2025 1:03 PM CDT Temperature 36.6 C (97.9 F) 11/26/2022 7:24 AM CDT Respiratory Rate 18 11/26/2022 7:24 AM CDT Oxygen Saturation 95% 11/26/2022 7:24 AM CDT Inhaled Oxygen Concentration - - Weight 60.8 kg (134 lb) 02/18/2025 1:03 PM CDT Height 157.5 cm (5' 2) 02/18/2025 1:03 PM CDT Body Mass Index 24.51 02/18/2025 1:03 PM CDT Plan of Treatment Health Maintenance Due [...] season) 2024 06/30/2021, 11/04/2020, 09/10/2020 Influenza Vaccine (#1) 2025 2, 05/21/2021, 04/18/2019, Additional history exists DTaP/Tdap/Td Vaccine (2 - Td or Tdap) 01/20/2031 01/20/2021 Medical Devices Implanted Type Area Director Agency & Strategic Partnerships Device Identifier Shelf Expiration Date Model / Serial / Lot Wl [employer] [place] 8mm 80cm Stretch Thin Wall Graft Vascular Heparin Propaten [id number] - [id number] - [id number] Implanted:Qty: 1 on 06/04/2022 by Juhi Alejandre MD at [facility] Right: Femur W[employer] [id number] 06/02/2025 [id number] / [id number] / Wl [employer] 6mm 40cm Stretch Peripheral Thin Wall Graft Vascular [place] [id number] - [id number] - [id number] Implanted:Qty: 1 on 10/18/2022 by Juhi Alejandre MD at [facility] Right: Leg Wl [employer] [id number] 02/24/2026 [id number] / [id number] / [employer] Weck Horizon 24 Cartridge Ligate Triangulate Cross Section Heart [id number] - [id number] Implanted:Qty: 15 on 10/18/2022 by Juhi Alejandre MD at [facility] Right: Leg [employer] [id number] / / Procedures Procedure Name Priority Date/Time Associated Diagnosis Comments US ARTERIAL DOPPLER LOWER EXTREMITY BILATERAL Schedule Routine, Read Routine (OP Routine) 02/12/2025 9:37 AM CDT Atherosclerosis of chickahom[place] indians[place]eastern division artery of both lower extremities with intermittent claudication from Last 3 Months Results * US Arterial Doppler Lower Extremity Bilateral (02/12/2025 9:37 AM CDT) Anatomical Region Laterality Modality Vascular Bilateral Ultrasound 02/12/2025 9:01 AM CDT Narrative 02/12/2025 3:52 PM CDT Lower Extremity Arterial Doppler Report Patient Name: JILLIAN GUSTAFSON L : 1950 Study Date: 02/12/2025 9:01:00 AM Gender: F Collection Advisor: Anjum Provider: JUHI ALEJANDRE Quality: Adequate Order Provider: JUHI ALEJANDRE PROCEDURES: Arterial Report: Bilateral lower extremity arterial Doppler exam at rest. INDICATIONS: I70.213 Atherosclerosis of chickahominy indians-eastern division arteries of extremities with intermittent claudication, bilateral legs. HISTORY: HTN/HLD/PREV SMOKER S/P RIGHT BKA 10/18/2022. COMPARISONS: The previous exam was completed on 04/09/2024 LT PT/DP .90/.81. MEASUREMENTS: Right Value Left Value Rt Brachial Pressure 139 mmHg Lt Brachial Pressure 143 mmHg Rt REFERENCE ARCHIVIST Pressure BKA mmHg Lt REFERENCE ARCHIVIST Pressure 120 mmHg Lt DPA Pressure 102 mmHg Lt 1st Digit Pressure 51 mmHg Lt PT RAFA Resting 0.84 Lt DP RAFA Resting 0.71 Lt Digit 1/Arm Index 0.36 FINDINGS: Left All Levels: The left common femoral, popliteal, posterior tibial and dorsalis pedis artery waveforms are biphasic. Right Common Femoral Artery Analysis: The common femoral artery waveform is biphasic. Left Digits: The left digit waveform is dampened. - CONCLUSIONS: 1. Ankle-brachial index of 0.8-0.9 is consistent with mild occlusive arterial disease in the left lower extremity. 2. There is evidence of left leg arterial insufficiency at the level of aorta- iliac, common femoral (inflow) arteries. ATTESTATION: I have reviewed and interpreted the pertinent images and measurements of this study. I attest to the conclusions in the final report that is provided above. Electronically Signed By: Kyler Sinha MD 02/12/2025 2:57:52 PM CDT Procedure Note Kyler Sinha MD - 02/12/2025 Lower Extremity Arterial Doppler Report Patient Name: JILLIAN GUSTAFSON L : 1950 Study Date: 02/12/2025 9:01:00 AM Gender: F Collection Advisor: Ref Provider: JUHI ALEJANDRE Quality: Adequate Order Provider: JUHI ALEJANDRE PROCEDURES: Arterial Report: Bilateral lower extremity arterial Doppler exam at rest. INDICATIONS: I70.213 Atherosclerosis of chickahom[place] indians-eastern division arteries of extremities withintermittent claudication, bilateral legs. HISTORY: HTN/HLD/PREV SMOKER S/P RIGHT BKA 10/18/2022. COMPARISONS: The previous exam was completed on 04/09/2024 LT PT/DP .90/.81. MEASUREMENTS: Right Value Left Value Rt Brachial Pressure 139 mmHg Lt Brachial Pressure 143 mmHg Rt REFERENCE ARCHIVIST Pressure BKA mmHg Lt REFERENCE ARCHIVIST Pressure 120 mmHg Lt DPA Pressure 102 mmHg Lt 1st Digit Pressure 51 mmHg Lt PT RAFA Resting 0.84 Lt DP RAFA Resting 0.71 Lt Digit 1/Arm Index 0.36 FINDINGS: Left All Levels: The left common femoral, popliteal, posterior tibial and dorsalis pedisartery waveforms are biphasic. Right Common Femoral Artery Analysis: The common femoral artery waveform is biphasic. Left Digits: The left digit waveform is dampened. - CONCLUSIONS: 1. Ankle-brachial index of 0.8-0.9 is consistent with mild occlusivearterial disease in the left lower extremity. 2. There is evidence of left leg arterial insufficiency at the level ofaorta- iliac, common femoral (inflow) arteries. ATTESTATION: I have reviewed and interpreted the pertinent images and measurements ofthis study. I attest to the conclusions in the final report that is provided above. Electronically Signed By: Kyler Sinha MD 02/12/2025 2:57:52 PM CDT us Juhi Nazario Alejandre MD [facility] PROCEDURES Final Res ult from Last 3 Months Insurance MEDICARE [employer] FOR LIFE MEDICARE [facility] FOR LIFE Advance Directives For more information, please contact: [phone] * Full Code (Latest Code Status on File) Date Activated Date Inactivated Comments 11/22/2022 10:12 AM 11/26/2022 6:26 PM * Full Code Date Activated Date Inactivated Comments 10/16/2022 11:50 PM 10/28/2022 8:53 PM * Full Code Date Activated Date Inactivated Comments 06/02/2022 6:30 PM 06/08/2022 9:24 PM Care Teams Facility Manager Relationship Specialty Start Date End Date Gelacio Justin MD PCP - General Family Medicine 06/07/22
--- OUTSIDE RECORDS SUMMARY | 2025-03-12 09:28 | XMS_ITS | Patient Health Record ---
Author Organization [facility] Address [address] [place] [address] Care Team Providers Care Frog Catcher Name Role Phone Gelacio Justin MD Primary Care Provider Unava ilable Reason For Referral No Information Plan Of Treatment Pending Test Test Name Order Date Colonoscopy 06/30/2018 Insurance Providers Payer Name Payer Address Payer Phone Subscriber Number Group Number Insured Name Patient Relationship to Insured Coverage Start Date Coverage End Date Medicare-I L - Part A Medicare [address] [facility] [place] [id number] Jillian Riddle Self - patient is the insured for Life - Medicare Sup [address] [place], [place] [id number] Jillian Riddle Self - patient is the insured Medicare-M O Medicare [address] [address] [place], [place] [id number] Jillian Riddle Self - patient is the insured
[2025-03-12 13:32] LABS: Alanine Aminotransferase 18 U/L (6-35); Albumin Level 4.4 g/dL (3.5-5.1); Alkaline Phosphatase 65 U/L (38-126); Anion Gap 7 mmol/L (4-12); Aspartate Amino Transferase 65 U/L (14-36); Bilirubin,Total 0.3 mg/dL (0.2-1.3); Blood Urea Nitrogen 18 mg/dL (7-17); Calcium 9.8 mg/dL (8.4-10.2); Carbon Dioxide 29 mmol/L (22-30); Chloride 100 mmol/L (98-107); Cholesterol 184 mg/dL (0-200); Estimated Glomerular Filt Rate > 60; Glucose 72 mg/dL (65-110); HDL Direct 44 mg/dL; Potassium 4.4 mmol/L (3.4-5.0); Sodium 136 mmol/L (137-145); Total Protein 7.4 g/dL (6.3-8.2); Triglycerides 198 mg/dL (<150)
[2025-03-12 14:15] LABS: Thyroid Stimulating Hormone 0.987 uIU/mL (0.465-4.680)
== END 2025-03-12 09:04 | disposition home or self-care (01) ==
LOC: ANHGOSHLAB 09:04
PROVIDERS: PCP Family Medicine; Visit Provider Nurse Practitioner Family
DX: I73.9 Peripheral vascular disease, unspecified (principal); I10 Essential (primary) hypertension; E78.5 Hyperlipidemia, unspecified; E78.9 Disorder of lipoprotein metabolism, unspecified; Z12.31 Encounter for screening mammogram for malignant neoplasm of breast
CPT/HCPCS: 36415; 80053; 80061; 84443

== ENCOUNTER 2025-05-10 19:12 | Inpatient (IN) | payer MEDICARE, OTHER, SELFPAY ==
[2025-05-10] VITALS (13 sets, daily range): BP systolic 106–132; BP diastolic 35–59; PULSE 65–85; RESP 18–20; TEMP 36.1–36.7; O2SAT 96–100
--- NOTE | ~2025-05-10 | CT_ITS ---
EXAMINATION: CT abdomen pelvis wo/w con DATE: 05/10/2025 22:49 INDICATION: Gross hematuria. TECHNIQUE: Computed tomography (CT) of the abdomen and pelvis was performed without and with intravenous contrast using a total of 130 mL Omnipaque-350 intravenous contrast with a double-bolus technique for simultaneous opacification of the renal parenchyma and renal collecting system. Automated exposure control and iterative reconstruction technique were employed. The dose- length product was 961.94 mGy-cm. COMPARISON: None FINDINGS: The visualized portions of lung bases demonstrate mild atelectasis. No pleural effusion. The heart size is normal. No pericardial effusion. There are cysts in the liver measuring up to 2.4 cm. The gallbladder, spleen, pancreas, and adrenal glands are normal. There are cysts in the kidneys measuring up to 12 mm on the left. There is a 2 mm stone in left kidney. Right ureter is well opacified and is normal. Left ureter is not well opacified distally, but is normal. There is a Riggins catheter in expected position. There is material in the bladder, consistent with hematoma. There is a moderate volume of stool in the colon. There is a left inguinal hernia containing fat. There is a right inguinal hernia containing the appendix. There is a 2.7 cm cyst in right ovary, likely benign. There are no pathologically enlarged lymph nodes. There is no free intraperitoneal fluid. There is a total right hip arthroplasty. There is severe lower lumbar spondylosis. IMPRESSION: 1. Hematoma in the bladder. 2. 2 mm nonobstructing left kidney stone. 3. Left inguinal hernia containing fat. Right inguinal hernia containing the appendix. Reviewed, dictated and finalized at location E. IMPRESSION: 1. Hematoma in the bladder. 2. 2 mm nonobstructing left kidney stone. 3. Left inguinal hernia containing fat. Right inguinal hernia containing the ap pendix.
--- NOTE | ~2025-05-10 | CT_ITS ---
EXAMINATION: CT abdomen pelvis wo con DATE: 05/12/2025 06:23 INDICATION: Bladder hematoma. TECHNIQUE: Computed tomography (CT) of the abdomen and pelvis was performed without intravenous contrast. Automated exposure control and iterative reconstruction technique were employed. The dose-length product was 428.51 mGy-cm. COMPARISON: CT abdomen and pelvis 05/10/2025 FINDINGS: The visualized portions of lung bases demonstrate mild atelectasis. There are small pleural effusions. The heart size is normal. No pericardial effusion. There are cysts in the liver measuring up to 3.2 cm. There is contrast in the gallbladder, which is normal in size. The spleen, pancreas, and adrenal glands are normal. There is an 8 mm cyst in right kidney. There is a 2 mm stone in left kidney. There is a Riggins catheter in expected position. The urine in the bladder is hyperdense. There is a left inguinal hernia containing fat. There may be changes of right inguinal hernia repair. There is diverticulosis of the colon without evidence of diverticulitis. There are no dilated loops of bowel. The appendix is normal. There are no pathologically enlarged lymph nodes. There is trace pelvic ascites. There is a 2.3 cm cyst in the right ovary, likely benign. There are no pathologically enlarged lymph nodes. There is a total right hip arthroplasty. There is moderate lumbar spondylosis. There is a vascular graft in right thigh. IMPRESSION: 1. Hyperdense urine in the bladder suspicious for hematoma. Artifact from the arthroplasty decreases specificity. 2. 2 mm nonobstructing left kidney stone. Reviewed, dictated and finalized at location E. IMPRESSION: 1. Hyperdense urine in the bladder suspicious for hematoma. Artifact from the a rthroplasty decreases specificity. 2. 2 mm nonobstructing left kidney stone.
--- NOTE | ~2025-05-10 | XR_ITS ---
Examination: XR chest 1V portable Clinical History: sepsis Comparison: CT lung screening September 12, 2021 Technique: Portable AP Findings: Heart size normal. Emphysema and mild interstitial changes. Round 4 mm nodule probably calcified right upper lobe. No acute bony abnormality. IMPRESSION: 1. No acute cardiopulmonary findings given portable technique. Reviewed, dictated and finalized at location R.
[2025-05-10] MEDS: SODIUM CHLORIDE 0.9% IV 1,000 ML 999 ML IV CONT (20:23)
--- NOTE | 2025-05-10 20:27 | PC.NURSE ---
RN placed a new menstrual pad on patient to check for bleeding in ED.
--- NOTE | 2025-05-10 20:28 | ED_ITS ---
HPI - Female Genitourinary General Chief complaint: Urogenital-Female <Sandie Herring PA-C - Last Filed: 05/13/25 09:03> Stated complaint: Dysuria, hematuria <Sandie Herring PA-C - Last Filed: 05/13/25 09:03> Time Seen by Provider: 05/10/25 19:23 <Sandie Herring PA-C - Last Filed: 05/13/25 09:03> Source: patient <TREY Erwin Last Filed: 05/13/25 09:03> Mode of arrival: ambulatory <TREY Erwin Last Filed: 05/13/25 09:03> Limitations: no limitations <TREY Erwin Last Filed: 05/13/25 09:03> History of Present Illness HPI Narrative: Patient is a 74-year-old female who presents the ED with report of hematuria. Patient reports she has had intermittent dysuria over the past few weeks. Has history of bladder prolapse with repair, uterine cancer status post hysterectomy and radiation therapy in 1970s. Reports previous urinary tract infection history, which was thought to be related to her radiation therapy, but states it has been since the beginning of this year that she has had a UTI. Reports tonight she began having socorro hematuria. States she is only passing blood, does not feel like she is passing urine. She is on Plavix and aspirin due to history of peripheral arterial disease. Denies abdominal or back/flank pain. Denies nausea, vomiting. Denies fevers. Denies history of kidney stones. <Sandie Herring PA-C - Last Filed: 05/13/25 09:03> Related Data Home medications: Home Medications ?Medication ?Instructions ?Recorded ?Confirmed ?Last Taken ?Type zinc 50 mg tablet 50 mg PO DAILY 01/20/2105/0102/06/25 History multivitamin 1 tablet PO DAILY 04/12/22 1 02/06/25 History Ocuvite See Rx Instructions .Route . COMPLEX 06/10/22 05/11/25 02/06/25 History cholecalciferol (vitamin D3) 10 10 mcg PO DAILY 05/11/25 02/06/25 History mcg (400 unit) capsule calcium carbonate 500 mg PO DAILY 05/02/2306/2502/06/25 History <Sandie Herring PA-C - Last Filed: 05/13/25 09:03> Allergies/Adverse reactions: Allergies Allergy/AdvReac Type Severity Reaction Status Date / Time cyclobenzaprine Allergy Severe orthostasis Verified 05/06/25 10:21 sulfamethoxazole (From Allergy Intermediate Rash Verified 05/06/25 10:21 Bactrim) trimethoprim (From Bactrim) Allergy Intermediate Rash Verified 05/06/25 10:21 amoxicillin AdvReac Severe Gastrointestinal Verified 05/06/25 10:21 Upset adhesive tape AdvReac Rash Verified 05/06/25 10:21 nickel AdvReac Itching/BLI Verified 05/06/25 10:21 STERS nitrofurantoin Allergy Unknown rash Uncoded 05/06/25 10:21 <TREY Erwin Last Filed: 05/13/25 09:03> Review of Systems 2 Review of Systems: All systems reviewed & are unremarkable except as noted in HPI. 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) Status post failed thrombectomy 09/2022 and subsequent bxlwg-nnp-jcgz amputation Right knee DJD Mallet finger of right finger(s) Status post surgery 04/2022 Cerebellar ataxia Androgenic alopecia Essential (primary) hypertension Gastro-esophageal reflux disease without esophagitis Irradiation cystitis with hematuria Squamous cell skin cancer, face Ulcerative (chronic) pancolitis without complications <TREY Erwin Last Filed: 05/13/25 09:03> Surgical History Surgical History: Surgical History (Updated 05/11/25 @ 07:48 by Marj Farmer DO) History of right below knee amputation (09/2022) History of colonoscopy with polypectomy History of bunionectomy of both great toes S/P total right hip arthroplasty (06/02/22) 06/02/2022 History of removal of pigmented skin lesion S/P tonsillectomy and adenoidectomy History of partial hysterectomy History of lumbar surgery L4 and 5 History of stress incontinence procedure using tension free vaginal tape <Sandie Herring PA-C - Last Filed: 05/13/25 09:03> Family History Family History: Family History Father Family history of glaucoma Hypertension Family history of elevated blood lipids Family history of cardiovascular disease Cerebrovascular accident Mother Family history of cardiovascular disease <Sandie Herring PA-C - Last Filed: 05/13/25 09:03> Social History Social History: Social History (Updated 05/11/25 @ 07:51 by Marj Farmer DO) Social History: She lives with her of 58 years. They had 3 sons and a daughter. She was diagnosed with uterine cancer while she was 6 months with her daughter and and up with stage IV uterine cancer when she refused treatment until her daughter was born. She needed denies any alcohol marijuana or illicit drugs. She is retired from [employer]. She drinks a glass a wine on occasion. She smoked no more than 10 cigarettes a day and started smoking when she was a teenager and quit in 2021. 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 no oxycodone for 3 months. Last use: notes rare ETOH use-last was 1/2 glass wine on Father's Day. 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 HEAD: Normocephalic, atraumatic. RESPIRATORY: Airway patent, respirations nonlabored. Clear to auscultation bilaterally, no rales, rhonchi, wheezing. CARDIOVASCULAR: Regular rate and rhythm without murmurs, rubs, or gallops. ABDOMINAL: Soft, nontender, nondistended. Normoactive BS. No CVA tenderness. MUSCULOSKELETAL: Moves all extremities. No gross deformities. R AKA. SKIN: Warm, dry, normal color. NEURO: A&O X3. Speech clear. Cranial nerves II-XII grossly intact. Steady gait. No ataxic movements. PSYCHIATRIC: Appropriate mood and affect. Normal interaction. <Sandie Herring PA-C - Last Filed: 05/13/25 09:03> Course HOG CONFINEMENT SYSTEM MANAGER/PA Physician Supervision This visit was performed by both a physician and an APC. I performed all aspects of the MDM as documented. <Hung Morgan DO - Last Filed: 05/11/25 19:50> Vital Signs Vital signs: Vital Signs Temperature 97.0 F L 05/10/25 19:15 Pulse Rate 69 05/10/25 19:15 Respiratory Rate 18 05/10/25 19:15 Blood Pressure 132/53 L 05/10/25 19:15 Pulse Oximetry 100 05/10/25 19:15 Oxygen Delivery Room Air 05/10/25 19:15 Temperature 98.1 F 05/13/25 04:00 Pulse Rate 77 05/13/25 06:00 Respiratory Rate 16 05/13/25 04:00 Blood Pressure 150/70 H 05/13/25 04:00 Pulse Oximetry 99 05/13/25 04:00 Oxygen Delivery Room Air 05/13/25 04:00 <Sandie Herring PA-C - Last Filed: 05/13/25 09:03> Vital Signs Temperature 97.0 F L 05/10/25 19:15 Pulse Rate 69 05/10/25 19:15 Respiratory Rate 18 05/10/25 19:15 Blood Pressure 132/53 L 05/10/25 19:15 Pulse Oximetry 100 05/10/25 19:15 Oxygen Delivery Room Air 05/10/25 19:15 Temperature 98.1 F 05/13/25 04:00 Pulse Rate 77 05/13/25 06:00 Respiratory Rate 16 05/13/25 04:00 Blood Pressure 150/70 H 05/13/25 04:00 Pulse Oximetry 99 05/13/25 04:00 Oxygen Delivery Room Air 05/13/25 04:00 <Hung Morgan DO - Last Filed: 05/11/25 19:50> MDM - Female Genitourinary MDM Narrative Medical decision making narrative: Patient presented tonight with gross hematuria. Vital signs stable upon arrival. Patient in no acute distress. She is on aspirin and Plavix. History of peripheral arterial disease. Patient was bladder scanned upon arrival and noted to have almost 400 mL of urine in her bladder. Only able to pass small amounts of bright red blood at a time. [address] catheter was placed and CBI was initiated. Cbc without leukocytosis Hemoglobin 10.9. This appears fairly consistent with previous records. Kidney function is stable on CMP. UA with greater than 100 RBC, but negative leuk esterase, negative nitrate, no WBC seen. CT urogram was obtained: No ureterolithiasis or hydronephrosis. Does show soft tissue density within the urinary bladder. May represent blood products such as clots. Cannot exclude underlying mass. CBI has been ongoing. Urine is becoming clear, light pink, but does intermittently clot off. ED nurse has performed manual suction out of clots several times. Patient did have clots approximately quarter-sized. Urine continues to drain ancillary services manager therapy red after clots evacuated. Discussed case with Dr. Velasquez, urology, advised to continue CBI, keep NPO, admit to hospitalist, will consult. Patient currently with [address]. Advised can increase to 20 or 22 [place] if patient continues to have persistent clots. Discussed case with Dr. Farmer, hospitalist, accepted patient for admission. Patient is in agreement with plan and need for admission. 0230 - Patient noted to be hypotensive down to 70s over 50s. This was confirmed on both arms. Fluids initiated. Riggins catheter was switched to 22 [place] and CBI is still ongoing. Repeat H&H was performed. Hemoglobin decreased to 9.3. Discussed case with hospitalist, recommended to start on broad-spectrum antibiotics for possible gram-negative bacteremia, will obtain blood cultures, CRP, procalcitonin, lactic acid. Upgrade to IMU. Patient is fluid responsive. Blood pressure is stabilizing but somewhat labile. Hospitalist made aware. Care signed out to Dr. Morgan at shift change. <Sandie Herring PA-C - Last Filed: 05/13/25 09:03> Medical Records Attestation: I reviewed the patient's medical records. <TREY Erwin Last Filed: 05/13/25 09:03> Lab Data Attestation: I reviewed the patient's lab results. <TREY Erwin Last Filed: 05/13/25 09:03> Result diagrams: 05/13/25 04:06 05/13/25 04:06 <Sandie Herring PA-C - Last Filed: 05/13/25 09:03> Labs: Lab Results 05/10/25 05/10/25 05/11/25 Range/Units 20:18 20:19 02:46 WBC 9.3 (4.5-10.0) K/mm3 RBC 3.40 L (4.2-5.4) M/mm3 Hgb 10.9 L (12.0-15.0) g/dL Hct 33.7 L (37.0-47.0) % MCV 99.1 (80-100) fl MCH 32.1 (26-34) pg MCHC 32.3 (32-36) g/dl RDW 12.9 (11.5-14.5) % Plt Count 282 (150-375) k/mm3 MPV 9.8 (7.4-10.4) fl Immature Gran % (Auto) 0.3 (0-0.5) % Neut % (Auto) 60.0 (45.5-73.1) % Lymph % (Auto) 29.6 (18.3-44.2) % [place] % (Auto) 6.1 (2.6-8.5) % Eos % (Auto) 3.2 (0-4.4) % Baso % (Auto) 0.8 (0.2-1.2) % Lymph # (Auto) 2.76 (0.9-3.2) K/mm3 [place] # (Auto) 0.6 (0.1-0.6) K/mm3 Eos # (Auto) 0.3 (0-0.3) K/mm3 Baso # (Auto) 0.1 (0.0-0.1) K/mm3 Abs Immat Gran (auto) 0.03 (0.00-0.031) K/mm3 Absolute Neuts (auto) 5.6 (1.3-6.7) K/mm3 Absolute Nucleated RBC 0.000 (0.0-0.012) K/mm3 Nucleated RBC % 0.0 (0.0-0.2) % PT 13.2 (11.1-14.7) Seconds INR 1.0 APTT 22.8 (22.3-36.8) Seconds Sodium 134 L (137-145) mmol/L Potassium 4.5 (3.4-5.0) mmol/L Chloride 102 (98-107) mmol/L Carbon Dioxide 26 (22-30) mmol/L Anion Gap 6 (4-12) mmol/L BUN 31 H D (7-17) mg/dL Creatinine 0.89 (0.7-1.0) mg/dL Estim Creat Clear Calc Not Reportable Estimated GFR > 60 (59 - ) Glucose 97 (65-110) mg/dL POC Capillary Glucose 101 (65-105) mg/dl Lactic Acid (0.7-2.0) mmol/L Calcium 9.1 (8.4-10.2) mg/dL Total Bilirubin 0.3 (0.2-1.3) mg/dL AST 24 (14-36) U/L ALT 12 (6-35) U/L Alkaline Phosphatase 56 (38-126) U/L C-Reactive Protein Cancelled Total Protein 6.6 (6.3-8.2) g/dL Total Protein (PEP) Albumin 4.0 (3.5-5.1) g/dL Albumin (PEP) Globulin (PEP) Albumin/Globulin Ratio Bvzgl-3-Bhpkchiwl Zjtnw-1-Saunqacid Beta Globulins Gamma Globulins Procalcitonin ng/mL Urine Color Dark red H (Yellow) Urine Appearance Turbid H (Clear) Urine pH 7.5 (5.0-9.0) Ur Specific [place] 1.025 (1.001-1.035) Urine Protein 3+ H (Negative) mg/dL Urine Glucose (UA) Negative (Negative) mg/dL Urine Ketones Negative (Negative) mg/dL Ur Blood (Man) 4+ H (Negative) Urine Nitrate Negative (Negative) Urine Bilirubin Negative (Negative) Urine Urobilinogen 0.2 (<2.0) mg/dL Leukocyte Esterase Rfl Negative (Negative) NOY/UL Urine RBC >100 H (0-2) /hpf Urine WBC 0-5 (0-3) /hpf Ur Squamous Epith Cells None seen (Few) /hpf Urine Bacteria Rare (None) /hpf Pr Electrophoresis MSpike Blood Type Antibody Screen 05/11/25 05/11/25 05/11/25 Range/Units 02:49 03:17 03:21 WBC 12.0 H (4.5-10.0) K/mm3 RBC 2.92 L (4.2-5.4) M/mm3 Hgb 9.3 L (12.0-15.0) g/dL Hct 29.0 L (37.0-47.0) % MCV 99.3 (80-100) fl MCH 31.8 (26-34) pg MCHC 32.1 (32-36) g/dl RDW 12.8 (11.5-14.5) % Plt Count 250 (150-375) k/mm3 MPV 9.6 (7.4-10.4) fl Immature Gran % (Auto) 0.3 (0-0.5) % Neut % (Auto) 69.8 (45.5-73.1) % Lymph % (Auto) 22.0 (18.3-44.2) % [place] % (Auto) 5.3 (2.6-8.5) % Eos % (Auto) 2.1 (0-4.4) % Baso % (Auto) 0.5 (0.2-1.2) % Lymph # (Auto) 2.63 (0.9-3.2) K/mm3 [place] # (Auto) 0.6 (0.1-0.6) K/mm3 Eos # (Auto) 0.3 (0-0.3) K/mm3 Baso # (Auto) 0.1 (0.0-0.1) K/mm3 Abs Immat Gran (auto) 0.04 H (0.00-0.031) K/mm3 Absolute Neuts (auto) 8.4 H (1.3-6.7) K/mm3 Absolute Nucleated RBC 0.000 (0.0-0.012) K/mm3 Nucleated RBC % 0.0 (0.0-0.2) % PT (11.1-14.7) Seconds INR APTT (22.3-36.8) Seconds Sodium 135 L (137-145) mmol/L Potassium 4.3 (3.4-5.0) mmol/L Chloride 109 H (98-107) mmol/L Carbon Dioxide 21 L (22-30) mmol/L Anion Gap 5 (4-12) mmol/L BUN 24 H (7-17) mg/dL Creatinine 0.77 (0.7-1.0) mg/dL Estim Creat Clear Calc 48 Estimated GFR > 60 (59 - ) Glucose 91 (65-110) mg/dL POC Capillary Glucose (65-105) mg/dl Lactic Acid 1.3 (0.7-2.0) mmol/L Calcium 7.9 L (8.4-10.2) mg/dL Total Bilirubin (0.2-1.3) mg/dL AST (14-36) U/L ALT (6-35) U/L Alkaline Phosphatase (38-126) U/L C-Reactive Protein 0.7 Total Protein (6.3-8.2) g/dL Total Protein (PEP) Pending Albumin (3.5-5.1) g/dL Albumin (PEP) Pending Globulin (PEP) Pending Albumin/Globulin Ratio Pending Vlgvo-6-Ukwngbcdj Pending Fstpi-3-Ipslagyll Pending Beta Globulins Pending Gamma Globulins Pending Procalcitonin 0.1 ng/mL Urine Color (Yellow) Urine Appearance (Clear) Urine pH (5.0-9.0) Ur Specific [place] (1.001-1.035) Urine Protein (Negative) mg/dL Urine Glucose (UA) (Negative) mg/dL Urine Ketones (Negative) mg/dL Ur Blood (Man) (Negative) Urine Nitrate (Negative) Urine Bilirubin (Negative) Urine Urobilinogen (<2.0) mg/dL Leukocyte Esterase Rfl (Negative) NOY/UL Urine RBC (0-2) /hpf Urine WBC (0-3) /hpf Ur Squamous Epith Cells (Few) /hpf Urine Bacteria (None) /hpf Pr Electrophoresis MSpike Pending Blood Type A Positive Antibody Screen Negative 05/11/25 Range/Units 08:20 WBC 10.9 H (4.5-10.0) K/mm3 RBC 2.93 L (4.2-5.4) M/mm3 Hgb 9.5 L (12.0-15.0) g/dL Hct 29.3 L (37.0-47.0) % MCV 100.0 (80-100) fl MCH 32.4 (26-34) pg MCHC 32.4 (32-36) g/dl RDW 13.0 (11.5-14.5) % Plt Count 224 (150-375) k/mm3 MPV 9.6 (7.4-10.4) fl Immature Gran % (Auto) 0.5 (0-0.5) % Neut % (Auto) 77.9 H (45.5-73.1) % Lymph % (Auto) 16.2 L (18.3-44.2) % [place] % (Auto) 3.3 (2.6-8.5) % Eos % (Auto) 1.6 (0-4.4) % Baso % (Auto) 0.5 (0.2-1.2) % Lymph # (Auto) 1.77 (0.9-3.2) K/mm3 [place] # (Auto) 0.4 (0.1-0.6) K/mm3 Eos # (Auto) 0.2 (0-0.3) K/mm3 Baso # (Auto) 0.1 (0.0-0.1) K/mm3 Abs Immat Gran (auto) 0.05 H (0.00-0.031) K/mm3 Absolute Neuts (auto) 8.5 H (1.3-6.7) K/mm3 Absolute Nucleated RBC 0.000 (0.0-0.012) K/mm3 Nucleated RBC % 0.0 (0.0-0.2) % PT (11.1-14.7) Seconds INR APTT (22.3-36.8) Seconds Sodium (137-145) mmol/L Potassium (3.4-5.0) mmol/L Chloride (98-107) mmol/L Carbon Dioxide (22-30) mmol/L Anion Gap (4-12) mmol/L BUN (7-17) mg/dL Creatinine (0.7-1.0) mg/dL Estim Creat Clear Calc Estimated GFR (59 - ) Glucose (65-110) mg/dL POC Capillary Glucose (65-105) mg/dl Lactic Acid (0.7-2.0) mmol/L Calcium (8.4-10.2) mg/dL Total Bilirubin (0.2-1.3) mg/dL AST (14-36) U/L ALT (6-35) U/L Alkaline Phosphatase (38-126) U/L C-Reactive Protein Total Protein (6.3-8.2) g/dL Total Protein (PEP) Albumin (3.5-5.1) g/dL Albumin (PEP) Globulin (PEP) Albumin/Globulin Ratio Kcguj-3-Cynsbewnd Zfizh-4-Wsdlmsnuo Beta Globulins Gamma Globulins Procalcitonin ng/mL Urine Color (Yellow) Urine Appearance (Clear) Urine pH (5.0-9.0) Ur Specific [place] (1.001-1.035) Urine Protein (Negative) mg/dL Urine Glucose (UA) (Negative) mg/dL Urine Ketones (Negative) mg/dL Ur Blood (Man) (Negative) Urine Nitrate (Negative) Urine Bilirubin (Negative) Urine Urobilinogen (<2.0) mg/dL Leukocyte Esterase Rfl (Negative) NOY/UL Urine RBC (0-2) /hpf Urine WBC (0-3) /hpf Ur Squamous Epith Cells (Few) /hpf Urine Bacteria (None) /hpf Pr Electrophoresis MSpike Blood Type Antibody Screen <Sandie Herring PA-C - Last Filed: 05/13/25 09:03> Lab Results 05/10/25 05/10/25 05/11/25 Range/Units 20:18 20:19 02:46 WBC 9.3 (4.5-10.0) K/mm3 RBC 3.40 L (4.2-5.4) M/mm3 Hgb 10.9 L (12.0-15.0) g/dL Hct 33.7 L (37.0-47.0) % MCV 99.1 (80-100) fl MCH 32.1 (26-34) pg MCHC 32.3 (32-36) g/dl RDW 12.9 (11.5-14.5) % Plt Count 282 (150-375) k/mm3 MPV 9.8 (7.4-10.4) fl Immature Gran % (Auto) 0.3 (0-0.5) % Neut % (Auto) 60.0 (45.5-73.1) % Lymph % (Auto) 29.6 (18.3-44.2) % [place] % (Auto) 6.1 (2.6-8.5) % Eos % (Auto) 3.2 (0-4.4) % Baso % (Auto) 0.8 (0.2-1.2) % Lymph # (Auto) 2.76 (0.9-3.2) K/mm3 [place] # (Auto) 0.6 (0.1-0.6) K/mm3 Eos # (Auto) 0.3 (0-0.3) K/mm3 Baso # (Auto) 0.1 (0.0-0.1) K/mm3 Abs Immat Gran (auto) 0.03 (0.00-0.031) K/mm3 Absolute Neuts (auto) 5.6 (1.3-6.7) K/mm3 Absolute Nucleated RBC 0.000 (0.0-0.012) K/mm3 Nucleated RBC % 0.0 (0.0-0.2) % PT 13.2 (11.1-14.7) Seconds INR 1.0 APTT 22.8 (22.3-36.8) Seconds Sodium 134 L (137-145) mmol/L Potassium 4.5 (3.4-5.0) mmol/L Chloride 102 (98-107) mmol/L Carbon Dioxide 26 (22-30) mmol/L Anion Gap 6 (4-12) mmol/L BUN 31 H D (7-17) mg/dL Creatinine 0.89 (0.7-1.0) mg/dL Estim Creat Clear Calc Not Reportable Estimated GFR > 60 (59 - ) Glucose 97 (65-110) mg/dL POC Capillary Glucose 101 (65-105) mg/dl Lactic Acid (0.7-2.0) mmol/L Calcium 9.1 (8.4-10.2) mg/dL Total Bilirubin 0.3 (0.2-1.3) mg/dL AST 24 (14-36) U/L ALT 12 (6-35) U/L Alkaline Phosphatase 56 (38-126) U/L C-Reactive Protein Cancelled Total Protein 6.6 (6.3-8.2) g/dL Total Protein (PEP) Albumin 4.0 (3.5-5.1) g/dL Albumin (PEP) Globulin (PEP) Albumin/Globulin Ratio Aaagi-1-Mssounutz Dpkyg-0-Mpiibxlil Beta Globulins Gamma Globulins Procalcitonin ng/mL Urine Color Dark red H (Yellow) Urine Appearance Turbid H (Clear) Urine pH 7.5 (5.0-9.0) Ur Specific [place] 1.025 (1.001-1.035) Urine Protein 3+ H (Negative) mg/dL Urine Glucose (UA) Negative (Negative) mg/dL Urine Ketones Negative (Negative) mg/dL Ur Blood (Man) 4+ H (Negative) Urine Nitrate Negative (Negative) Urine Bilirubin Negative (Negative) Urine Urobilinogen 0.2 (<2.0) mg/dL Leukocyte Esterase Rfl Negative (Negative) NOY/UL Urine RBC >100 H (0-2) /hpf Urine WBC 0-5 (0-3) /hpf Ur Squamous Epith Cells None seen (Few) /hpf Urine Bacteria Rare (None) /hpf Pr Electrophoresis MSpike Blood Type Antibody Screen 05/11/25 05/11/25 05/11/25 Range/Units 02:49 03:17 03:21 WBC 12.0 H (4.5-10.0) K/mm3 RBC 2.92 L (4.2-5.4) M/mm3 Hgb 9.3 L (12.0-15.0) g/dL Hct 29.0 L (37.0-47.0) % MCV 99.3 (80-100) fl MCH 31.8 (26-34) pg MCHC 32.1 (32-36) g/dl RDW 12.8 (11.5-14.5) % Plt Count 250 (150-375) k/mm3 MPV 9.6 (7.4-10.4) fl Immature Gran % (Auto) 0.3 (0-0.5) % Neut % (Auto) 69.8 (45.5-73.1) % Lymph % (Auto) 22.0 (18.3-44.2) % [place] % (Auto) 5.3 (2.6-8.5) % Eos % (Auto) 2.1 (0-4.4) % Baso % (Auto) 0.5 (0.2-1.2) % Lymph # (Auto) 2.63 (0.9-3.2) K/mm3 [place] # (Auto) 0.6 (0.1-0.6) K/mm3 Eos # (Auto) 0.3 (0-0.3) K/mm3 Baso # (Auto) 0.1 (0.0-0.1) K/mm3 Abs Immat Gran (auto) 0.04 H (0.00-0.031) K/mm3 Absolute Neuts (auto) 8.4 H (1.3-6.7) K/mm3 Absolute Nucleated RBC 0.000 (0.0-0.012) K/mm3 Nucleated RBC % 0.0 (0.0-0.2) % PT (11.1-14.7) Seconds INR APTT (22.3-36.8) Seconds Sodium 135 L (137-145) mmol/L Potassium 4.3 (3.4-5.0) mmol/L Chloride 109 H (98-107) mmol/L Carbon Dioxide 21 L (22-30) mmol/L Anion Gap 5 (4-12) mmol/L BUN 24 H (7-17) mg/dL Creatinine 0.77 (0.7-1.0) mg/dL Estim Creat Clear Calc 48 Estimated GFR > 60 (59 - ) Glucose 91 (65-110) mg/dL POC Capillary Glucose (65-105) mg/dl Lactic Acid 1.3 (0.7-2.0) mmol/L Calcium 7.9 L (8.4-10.2) mg/dL Total Bilirubin (0.2-1.3) mg/dL AST (14-36) U/L ALT (6-35) U/L Alkaline Phosphatase (38-126) U/L C-Reactive Protein 0.7 Total Protein (6.3-8.2) g/dL Total Protein (PEP) Pending Albumin (3.5-5.1) g/dL Albumin (PEP) Pending Globulin (PEP) Pending Albumin/Globulin Ratio Pending Ukmvu-9-Zhtjjvfle Pending Cqwki-1-Aauzpemvj Pending Beta Globulins Pending Gamma Globulins Pending Procalcitonin 0.1 ng/mL Urine Color (Yellow) Urine Appearance (Clear) Urine pH (5.0-9.0) Ur Specific [place] (1.001-1.035) Urine Protein (Negative) mg/dL Urine Glucose (UA) (Negative) mg/dL Urine Ketones (Negative) mg/dL Ur Blood (Man) (Negative) Urine Nitrate (Negative) Urine Bilirubin (Negative) Urine Urobilinogen (<2.0) mg/dL Leukocyte Esterase Rfl (Negative) NOY/UL Urine RBC (0-2) /hpf Urine WBC (0-3) /hpf Ur Squamous Epith Cells (Few) /hpf Urine Bacteria (None) /hpf Pr Electrophoresis MSpike Pending Blood Type A Positive Antibody Screen Negative 05/11/25 Range/Units 08:20 WBC 10.9 H (4.5-10.0) K/mm3 RBC 2.93 L (4.2-5.4) M/mm3 Hgb 9.5 L (12.0-15.0) g/dL Hct 29.3 L (37.0-47.0) % MCV 100.0 (80-100) fl MCH 32.4 (26-34) pg MCHC 32.4 (32-36) g/dl RDW 13.0 (11.5-14.5) % Plt Count 224 (150-375) k/mm3 MPV 9.6 (7.4-10.4) fl Immature Gran % (Auto) 0.5 (0-0.5) % Neut % (Auto) 77.9 H (45.5-73.1) % Lymph % (Auto) 16.2 L (18.3-44.2) % [place] % (Auto) 3.3 (2.6-8.5) % Eos % (Auto) 1.6 (0-4.4) % Baso % (Auto) 0.5 (0.2-1.2) % Lymph # (Auto) 1.77 (0.9-3.2) K/mm3 [place] # (Auto) 0.4 (0.1-0.6) K/mm3 Eos # (Auto) 0.2 (0-0.3) K/mm3 Baso # (Auto) 0.1 (0.0-0.1) K/mm3 Abs Immat Gran (auto) 0.05 H (0.00-0.031) K/mm3 Absolute Neuts (auto) 8.5 H (1.3-6.7) K/mm3 Absolute Nucleated RBC 0.000 (0.0-0.012) K/mm3 Nucleated RBC % 0.0 (0.0-0.2) % PT (11.1-14.7) Seconds INR APTT (22.3-36.8) Seconds Sodium (137-145) mmol/L Potassium (3.4-5.0) mmol/L Chloride (98-107) mmol/L Carbon Dioxide (22-30) mmol/L Anion Gap (4-12) mmol/L BUN (7-17) mg/dL Creatinine (0.7-1.0) mg/dL Estim Creat Clear Calc Estimated GFR (59 - ) Glucose (65-110) mg/dL POC Capillary Glucose (65-105) mg/dl Lactic Acid (0.7-2.0) mmol/L Calcium (8.4-10.2) mg/dL Total Bilirubin (0.2-1.3) mg/dL AST (14-36) U/L ALT (6-35) U/L Alkaline Phosphatase (38-126) U/L C-Reactive Protein Total Protein (6.3-8.2) g/dL Total Protein (PEP) Albumin (3.5-5.1) g/dL Albumin (PEP) Globulin (PEP) Albumin/Globulin Ratio Nendk-6-Eoldueysc Gnwlq-3-Loisomnju Beta Globulins Gamma Globulins Procalcitonin ng/mL Urine Color (Yellow) Urine Appearance (Clear) Urine pH (5.0-9.0) Ur Specific [place] (1.001-1.035) Urine Protein (Negative) mg/dL Urine Glucose (UA) (Negative) mg/dL Urine Ketones (Negative) mg/dL Ur Blood (Man) (Negative) Urine Nitrate (Negative) Urine Bilirubin (Negative) Urine Urobilinogen (<2.0) mg/dL Leukocyte Esterase Rfl (Negative) NOY/UL Urine RBC (0-2) /hpf Urine WBC (0-3) /hpf Ur Squamous Epith Cells (Few) /hpf Urine Bacteria (None) /hpf Pr Electrophoresis MSpike Blood Type Antibody Screen <Hung Morgan DO - Last Filed: 05/11/25 19:50> Imaging Data Attestation: I personally reviewed and interpreted this imaging study as follows: < Sandie Herring PA-C - Last Filed: 05/13/25 09:03> Radiologist's impression: STAT RAD CT abd/pelvis w/o contrast: Impression: No evidence of renal calculi or hydronephrosis. A Riggins catheter is noted within the bladder. Incidental findings: Distal esophagus is distended containing fluid. The stomach is decompressed. There is a right inguinal hernia containing the appendix. There is a left inguinal hernia containing fat. There are multiple lucencies noted within the liver which may represent cyst. Diverticulosis. The colon is distended containing a large amount of stool. The patient is status post right total hip replacement. STAT RAD CT abd/pelvis w/ contrast: Impression: The kidneys demonstrate bilateral function and excretion. There are possible small bilateral renal cysts. There is soft tissue density within the urinary bladder. This may represent blood products such as clots. Cannot exclude underlying mass. <Sandie Herring PA-C - Last Filed: 05/13/25 09:03> Discharge Plan Discharge Clinical Impression: Gross hematuria Sepsis Qualifiers: Sepsis type: sepsis due to unspecified organism Sepsis acute organ dysfunction status: unspecified Qualified Code(s): A41.9 - Sepsis, unspecified organism <Sandie Herring PA-C - Last Filed: 05/13/25 09:03> Patient Disposition: Still a Patient <Sandie Herring PA-C - Last Filed: 05/13/25 09:03> Condition: Stable <Sandie Herring PA-C - Last Filed: 05/13/25 09:03>
[2025-05-10 20:35] LABS: Hematocrit 33.7 % (37.0-47.0); Hemoglobin 10.9 g/dL (12.0-15.0); Immature Granulocyte Percent A 0.3 % (0-0.5); Lymphocytes Absolute Auto 2.76 K/mm3 (0.9-3.2); Mean Corpuscular HGB Conc 32.3 g/dl (32-36); Mean Corpuscular Hemoglobin 32.1 pg (26-34); Mean Corpuscular Volume 99.1 fl (80-100); Nucleated Red Blood Cells Absolute Auto 0.000 K/mm3 (0.0-0.012); Nucleated Red Blood Cells Perc 0.0 % (0.0-0.2); Platelet Count Result 282 k/mm3 (150-375); Red Blood Count 3.40 M/mm3 (4.2-5.4); White Blood Count 9.3 K/mm3 (4.5-10.0)
[2025-05-10 20:48] LABS: INR 1.0; Partial Thromboplastin Time 22.8 Seconds (22.3-36.8); Prothrombin Time 13.2 Seconds (11.1-14.7)
[2025-05-10 20:54] LABS: Alanine Aminotransferase 12 U/L (6-35); Albumin Level 4.0 g/dL (3.5-5.1); Alkaline Phosphatase 56 U/L (38-126); Anion Gap 6 mmol/L (4-12); Aspartate Amino Transferase 24 U/L (14-36); Bilirubin,Total 0.3 mg/dL (0.2-1.3); Blood Urea Nitrogen 31 mg/dL (7-17); Calcium 9.1 mg/dL (8.4-10.2); Carbon Dioxide 26 mmol/L (22-30); Chloride 102 mmol/L (98-107); Estimated Glomerular Filt Rate > 60; Glucose 97 mg/dL (65-110); Potassium 4.5 mmol/L (3.4-5.0); Sodium 134 mmol/L (137-145); Total Protein 6.6 g/dL (6.3-8.2)
[2025-05-10 21:08] LABS: Appearance Urine Turbid (Clear); Specific Grav Ur 1.025 (1.001-1.035)
[2025-05-10 21:09] LABS: Glucose Urine UA Negative (Negative)
[2025-05-10 21:10] LABS: Add Urine Microscopic? YES; Leukocyte Esterase Ur Negative LEU/UL (Negative); Nitrate Urine Negative (Negative)
[2025-05-11] VITALS (61 sets, daily range): BP systolic 61–166; BP diastolic 28–81; PULSE 63–87; RESP 12–24; TEMP 36.4–36.8; O2SAT 68–100; BMI 26.4
[2025-05-11] MEDS: SODIUM CHLORIDE 0.9% IV 1,000 ML 999 ML IV CONT ×2 (02:35→03:28)
[2025-05-11 02:58] LABS: Hematocrit 29.0 % (37.0-47.0); Hemoglobin 9.3 g/dL (12.0-15.0); Immature Granulocyte Percent A 0.3 % (0-0.5); Lymphocytes Absolute Auto 2.63 K/mm3 (0.9-3.2); Mean Corpuscular HGB Conc 32.1 g/dl (32-36); Mean Corpuscular Hemoglobin 31.8 pg (26-34); Mean Corpuscular Volume 99.3 fl (80-100); Nucleated Red Blood Cells Absolute Auto 0.000 K/mm3 (0.0-0.012); Nucleated Red Blood Cells Perc 0.0 % (0.0-0.2); Platelet Count Result 250 k/mm3 (150-375); Red Blood Count 2.92 M/mm3 (4.2-5.4); White Blood Count 12.0 K/mm3 (4.5-10.0)
[2025-05-11] MEDS: CEFEPIME 2 GM in SODIUM CHLORIDE 0.9% IV 50 ML 100 ML IVPB ×2 (03:29→15:59)
[2025-05-11 03:37] LABS: CRP 0.7 mg/dL (<1.0)
[2025-05-11 03:52] LABS: Procalcitonin 0.1 ng/mL
--- NOTE | 2025-05-11 04:33 | P.HP_ITS ---
H&P: HPI History of Present Illness Date/Time: 05/11/25 04:33 Chief Complaint: Pain with urination and passing bright red blood Narrative: 74-year-old female with a past medical history of uterine cancer status post radiation therapy in the 1970s, bladder prolapse status post bladder sling in 2019, history of frequent UTIs with radiation cystitis, peripheral artery disease status post right [id number] amputation, essential hypertension, hyperlipidemia and former tobacco use who presented to the ER from home with hematuria and dysuria. The patient reports for for the last 2 weeks she has had intermittent dysuria the mostly occurred at night and when she would wake up in the morning. Wrist today she was not having any recurrence of dysuria or hematuria. Then suddenly last night before coming to the ER she developed socorro hematuria with worsening burning. She felt like she could not pass any actual urine and was passing straight blood. She denies any recent fevers, chills body aches her fatigue that she would have when she has had prior UTIs. She denies any nausea or vomiting. She is on chronic Plavix and 81 mg aspirin due to peripheral artery disease. Initially on presentation to the ER blood pressures were normal. However the patient was having multiple blood clots in her catheter that were not clearing. Subsequently when her catheter was exchanged to a larger diameter catheter she developed hypotension. Her blood pressures were in the 60s and 70 systolic. She was given 1 L of fluid bolus earlier in the ER stay. When she became hypotensive she received an additional 2 L with 1 those being given with pressure bag. Patient was fluid responsive and had initial improvement in blood pressures up to the 110s. When the fluids were decreased back down to normal bolus over an hour blood pressures again dropped into the 70s and 80s. Subsequently the patient's bed placement was changed from medical to IMU. Patient does report that she has history of orthostatic hypotension. She has not had any recent changes in her pressure medications. She has had a history of what sounds like vasovagal drops in her blood pressure in the past as well. She has not had any fevers. She was feeling chilled but this was after IV fluid bolus administration. She remains afebrile at this time. She denies any tachycardia or tachypnea. Repeat labs performed in the ER due to the patient's change in condition did demonstrate a jump in her white count from 9.3 up to 12. Her BUN was elevated at 53 but she had normal creatinine. Her procalcitonin and lactic acid were normal. Given her resolution of hypotension with the 3 L fluid bolus phenylephrine that had been ordered previously was discontinued. Review of Systems 2 Review of Systems: 12 systems were reviewed with pertinent positives and negatives per HPI. Except as documented in the HPI, all other systems were reviewed and are negative. 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) Status post failed thrombectomy 09/2022 and subsequent ortdi-[id number] amputation Right knee DJD Mallet finger of right finger(s) Status post surgery 04/2022 Cerebellar ataxia Androgenic alopecia Essential (primary) hypertension Gastro-esophageal reflux disease without esophagitis Irradiation cystitis with hematuria Squamous cell skin cancer, face Ulcerative (chronic) pancolitis without complications Surgical History Surgical History (Updated 05/11/25 @ 07:48 by Marj Farmer DO) History of right below knee amputation (09/2022) History of colonoscopy with polypectomy History of bunionectomy of both great toes S/P total right hip arthroplasty (06/02/22) 06/02/2022 History of removal of pigmented skin lesion S/P tonsillectomy and adenoidectomy History of partial hysterectomy History of lumbar surgery L4 and 5 History of stress incontinence procedure using tension free vaginal tape Family History Family History Father Family history of glaucoma Hypertension Family history of elevated blood lipids Family history of cardiovascular disease Cerebrovascular accident Mother Family history of cardiovascular disease Social History Social History (Updated 05/11/25 @ 07:51 by Marj Farmer DO) Social History: She lives with her of 58 years. They had 3 sons and a daughter. She was diagnosed with uterine cancer while she was 6 months with her daughter and and up with stage IV uterine cancer when she refused treatment until her daughter was born. She needed denies any alcohol marijuana or illicit drugs. She is retired from [employer]. She drinks a glass a wine on occasion. She smoked no more than 10 cigarettes a day and started smoking when she was a teenager and quit in 2021. 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 no oxycodone for 3 months. Last use: notes rare ETOH use-last was 1/2 glass wine on Father's Day. 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 COMPLEX 06/10/22 05/11/25 History cholecalciferol (vitamin D3) 10 10 mcg PO DAILY 05/11/25 History mcg (400 unit) capsule aspirin 81 mg chewable tablet 81 mg PO DAILY@0800 #30 tabs 06/20/22 05/11/25 Rx (Children's Aspirin) cyanocobalamin (vitamin B-12) 1,000 mcg PO QAM #20 tab s 11/04/22 05/11/25 Rx 1,000 mcg tablet (Vitamin B-12) calcium carbonate 500 mg PO DAILY 05/02/2306/25 History estradiol 0.5 mg tablet See Rx Instructions .Route 0 11/19/24 05/11/25 Rx .COMPLEX #90 tabs lisinopril 20 mg tablet See Rx Instructions .Route 0 12/28/24 05/11/25 Rx .COMPLEX #90 tabs simvastatin 10 mg tablet 10 mg PO HS #90 tabs 01/31/2 5 05/11/25 Rx metoprolol succinate 25 mg 12.5 mg (1/2 x 25 mg) PO BI D #90 03/04/25 05/11/25 Rx tablet,extended release 24 hr tabs (Toprol XL) clopidogrel 75 mg tablet See Rx Instructions .Route 0 04/15/25 05/11/25 Rx .COMPLEX #30 tabs omeprazole 20 mg capsule,delayed See Rx Instructions . Route 04/15/25 05/11/25 Rx release .COMPLEX #90 caps tamsulosin 0.4 mg capsule 0.4 mg PO HS #90 caps 05/11/25 Rx gabapentin 100 mg capsule See Rx Instructions .Route 1 05/11/25 Rx .COMPLEX #60 caps Allergies Allergy/AdvReac Type Severity Reaction Status Date / Time cyclobenzaprine Allergy Severe orthostasis Verified 05/06/25 10:21 sulfamethoxazole (From Allergy Intermediate Rash Verified 05/06/25 10:21 Bactrim) trimethoprim (From Bactrim) Allergy Intermediate Rash Verified 05/06/25 10:21 amoxicillin AdvReac Severe Gastrointestinal Verified 05/06/25 10:21 Upset adhesive tape AdvReac Rash Verified 05/06/25 10:21 nickel AdvReac Itching/BLI Verified 05/06/25 10:21 STERS nitrofurantoin Allergy Unknown rash Uncoded 05/06/25 10:21 Vital Signs Vital Signs - 24 hr 05/10/25 19:15 05/10/25 20:25 05/10/25 20:50 Temperature 97.0 F L 98.0 F Pulse Rate 69 65 Respiratory Rate 18 20 Blood Pressure 132/53 L 124/57 L Pulse Oximetry 100 99 99 Oxygen Delivery Room Air 05/10/25 21:05 05/10/25 21:36 05/10/25 22:46 Temperature Pulse Rate 80 Respiratory Rate Blood Pressure 112/41 L 106/42 L Pulse Oximetry 96 100 99 Oxygen Delivery 05/10/25 23:00 05/10/25 23:14 05/10/25 23:15 Temperature Pulse Rate 85 Respiratory Rate 18 Blood Pressure 110/35 L 110/35 L Pulse Oximetry 100 100 97 Oxygen Delivery 05/10/25 23:16 05/10/25 23:31 05/10/25 23:32 Temperature Pulse Rate Respiratory Rate Blood Pressure 123/59 L 113/52 L Pulse Oximetry 100 98 99 Oxygen Delivery 05/10/25 23:46 05/11/25 00:00 05/11/25 00:03 Temperature Pulse Rate Respiratory Rate Blood Pressure 91/55 L Pulse Oximetry 100 99 Oxygen Delivery 05/11/25 00:15 05/11/25 00:31 05/11/25 00:32 Temperature Pulse Rate Respiratory Rate Blood Pressure 102/53 L Pulse Oximetry 100 98 98 Oxygen Delivery 05/11/25 00:45 05/11/25 00:46 05/11/25 00:52 Temperature Pulse Rate Respiratory Rate Blood Pressure 61/30 L 100/59 L Pulse Oximetry 97 99 97 Oxygen Delivery 05/11/25 01:00 05/11/25 01:01 05/11/25 01:15 Temperature Pulse Rate Respiratory Rate Blood Pressure 108/57 L Pulse Oximetry 98 96 95 Oxygen Delivery 05/11/25 01:16 05/11/25 01:30 05/11/25 01:31 Temperature Pulse Rate Respiratory Rate Blood Pressure 101/56 L 93/55 L Pulse Oximetry 95 96 96 Oxygen Delivery 05/11/25 01:45 05/11/25 01:46 05/11/25 02:00 Temperature Pulse Rate Respiratory Rate Blood Pressure 92/60 L Pulse Oximetry 97 97 99 Oxygen Delivery 05/11/25 02:01 05/11/25 02:15 05/11/25 02:16 Temperature Pulse Rate 74 Respiratory Rate 16 Blood Pressure 88/28 L 71/53 L Pulse Oximetry 96 97 98 Oxygen Delivery 05/11/25 02:29 05/11/25 02:30 05/11/25 02:31 Temperature Pulse Rate 75 86 74 Respiratory Rate 24 H 18 18 Blood Pressure 67/33 L 73/41 L 70/49 L Pulse Oximetry 98 99 100 Oxygen Delivery 05/11/25 02:32 05/11/25 02:37 05/11/25 02:39 Temperature Pulse Rate 74 Respiratory Rate 18 Blood Pressure 67/42 L 82/40 L Pulse Oximetry 98 100 Oxygen Delivery 05/11/25 02:43 05/11/25 02:45 05/11/25 02:50 Temperature Pulse Rate Respiratory Rate Blood Pressure 77/41 L 69/52 L Pulse Oximetry 95 Oxygen Delivery 05/11/25 02:56 05/11/25 03:00 05/11/25 03:04 Temperature Pulse Rate 74 80 Respiratory Rate 24 H 21 H Blood Pressure 115/81 117/40 L Pulse Oximetry 100 68 L 100 Oxygen Delivery 05/11/25 03:09 05/11/25 03:11 05/11/25 03:15 Temperature Pulse Rate 74 73 74 Respiratory Rate 20 22 H 21 H Blood Pressure 106/36 L 107/38 L Pulse Oximetry 97 99 Oxygen Delivery 05/11/25 03:16 05/11/25 03:21 05/11/25 03:24 Temperature Pulse Rate Respiratory Rate Blood Pressure 108/47 L 88/37 L 75/44 L Pulse Oximetry 100 95 Oxygen Delivery 05/11/25 03:25 05/11/25 03:30 05/11/25 03:31 Temperature Pulse Rate 75 75 Respiratory Rate 12 23 H Blood Pressure 76/58 L 103/51 L Pulse Oximetry 96 92 98 Oxygen Delivery 05/11/25 03:45 05/11/25 03:50 05/11/25 03:55 Temperature Pulse Rate 68 73 73 Respiratory Rate 16 17 17 Blood Pressure 112/47 L 122/44 L 124/51 L Pulse Oximetry 97 99 99 Oxygen Delivery 05/11/25 04:00 05/11/25 04:05 05/11/25 04:10 Temperature Pulse Rate 71 77 76 Respiratory Rate 16 19 16 Blood Pressure 115/52 L 111/55 L 122/53 L Pulse Oximetry 100 94 98 Oxygen Delivery Exam 2 Narrative: Weight 65.7 kg BMI 26.5 Const: Other: No acute distress, well-developed well-nourished, appears stated age HENMT: Other: Mucous membranes are tacky, no oral pharyngeal erythema, positive conjunctival pallor, no scleral icterus Neck: Other: No JVD, no lymphadenopathy Resp: Other: Clear to auscultation bilaterally, no increased work of breathing Cardio: Other: Regular rate, regular rhythm, 2+ bilateral radial pulses, 2+ left pedal pulse GI: Other: Soft, nontender, nondistended, positive bowel sounds : Other: 3 way Riggins catheter in place with Herman- Aid colored urine noted Skin: Other: Mild pallor, non jaundice Neuro: Other: Alert oriented, speech is clear, no facial asymmetry, moves all extremities equally Extrem: Other: Right heosj-eei-[id number] amputation with an 8 covering the lateral aspect of the stump to help prevent friction wound, left lower extremity has no cyanosis or edema Psych: Other: Appropriate mood and affect, pleasant and cooperative, judgment and insight intact H&P: Results Labs Labs: Laboratory Tests 05/11/25 02:49 05/10/25 20:18 05/10/25 05/10/25 05/11/25 20:18 20:19 02:46 WBC 9.3 RBC 3.40 L Hgb 10.9 L Hct 33.7 L MCV 99.1 MCH 32.1 MCHC 32.3 RDW 12.9 Plt Count 282 MPV 9.8 Immature Gran % (Auto) 0.3 Neut % (Auto) 60.0 Lymph % (Auto) 29.6 Mcdonald % (Auto) 6.1 Eos % (Auto) 3.2 Baso % (Auto) 0.8 Lymph # (Auto) 2.76 Mcdonald # (Auto) 0.6 Eos # (Auto) 0.3 Baso # (Auto) 0.1 Abs Immat Gran (auto) 0.03 Absolute Neuts (auto) 5.6 Absolute Nucleated RBC 0.000 Nucleated RBC % 0.0 PT 13.2 INR 1.0 APTT 22.8 Sodium 134 L Potassium 4.5 Chloride 102 Carbon Dioxide 26 Anion Gap 6 BUN 31 H D Creatinine 0.89 Estim Creat Clear Calc Not Reportable Estimated GFR > 60 Glucose 97 POC Capillary Glucose 101 Lactic Acid Calcium 9.1 Total Bilirubin 0.3 AST 24 ALT 12 Alkaline Phosphatase 56 C-Reactive Protein Cancelled Total Protein 6.6 Albumin 4.0 Procalcitonin Urine Color Dark red H Urine Appearance Turbid H Urine pH 7.5 Ur Specific Herrick 1.025 Urine Protein 3+ H Urine Glucose (UA) Negative Urine Ketones Negative Ur Blood (Man) 4+ H Urine Nitrate Negative Urine Bilirubin Negative Urine Urobilinogen 0.2 Leukocyte Esterase Rfl Negative Urine RBC >100 H Urine WBC 0-5 Ur Squamous Epith Cells None seen Urine Bacteria Rare Blood Type Antibody Screen 05/11/25 05/11/25 05/11/25 02:49 03:17 03:21 WBC 12.0 H RBC 2.92 L Hgb 9.3 L Hct 29.0 L MCV 99.3 MCH 31.8 MCHC 32.1 RDW 12.8 Plt Count 250 MPV 9.6 Immature Gran % (Auto) 0.3 Neut % (Auto) 69.8 Lymph % (Auto) 22.0 Mcdonald % (Auto) 5.3 Eos % (Auto) 2.1 Baso % (Auto) 0.5 Lymph # (Auto) 2.63 Mcdonald # (Auto) 0.6 Eos # (Auto) 0.3 Baso # (Auto) 0.1 Abs Immat Gran (auto) 0.04 H Absolute Neuts (auto) 8.4 H Absolute Nucleated RBC 0.000 Nucleated RBC % 0.0 PT INR APTT Sodium Potassium Chloride Carbon Dioxide Anion Gap BUN Creatinine Estim Creat Clear Calc Estimated GFR Glucose POC Capillary Glucose Lactic Acid 1.3 Calcium Total Bilirubin AST ALT Alkaline Phosphatase C-Reactive Protein 0.7 Total Protein Albumin Procalcitonin 0.1 Urine Color Urine Appearance Urine pH Ur Specific Herrick Urine Protein Urine Glucose (UA) Urine Ketones Ur Blood (Man) Urine Nitrate Urine Bilirubin Urine Urobilinogen Leukocyte Esterase Rfl Urine RBC Urine WBC Ur Squamous Epith Cells Urine Bacteria Blood Type A Positive Antibody Screen Negative CT of the abdomen pelvis without contrast: Personally reviewed and interpreted demonstrated density in the bladder concerning for possible blood clot with evidence of Riggins catheter in the urethra. No evidence of hydronephrosis or nephrolithiasis. Chronic liver cyst noted. Per the ER providers documentation stat read interpretation correlated with my interpretation with the addition of underlying mass of the bladder cannot be excluded. Assessment and Plan Assessment and plan (1) Sepsis: Qualifiers: Sepsis acute organ dysfunction status: unspecified Sepsis type: sepsis due to unspecified organism Qualified Code(s): A41.9 - Sepsis, unspecified organism Code(s): A41.9 - Sepsis, unspecified organism Status: Acute (2) Gross hematuria: Code(s): R31.0 - Gross hematuria Status: Acute (3) Blood loss anemia: Code(s): D50.0 - Iron deficiency anemia secondary to blood loss (chronic) Status: Resolved (4) Hyponatremia: Code(s): E87.1 - Hypo-osmolality and hyponatremia Status: Acute (5) Acute hypotension: Code(s): I95.9 - Hypotension, unspecified Status: Acute (6) Acute on chronic anemia: Code(s): D64.9 - Anemia, unspecified Status: Acute Plan Patient has gross hematuria and history of radiation cystitis. However cannot rule out underlying bladder mass. Urine does not seem suspicious for UTI but given hypotension cannot rule out acute infection especially in the setting of the patient's white count becoming acutely elevated at the time of hypotension. Will start the patient on empiric antibiotic therapy with cefepime and will send urine for culture. Blood cultures have all been obtained and are pending. Will repeat CBC in a.m. to further evaluate by CT and stability of hemoglobin. Hypotension likely due to vasovagal event versus hypovolemic versus infection. Patient does have some uremia without elevated creatinine suggesting some component of volume depletion. Will continue normal saline at 125 mL an hour. No need for pressor therapy given normalization of blood pressures and phenylephrine is subsequently been discontinued. Patient been admitted as IMU status. Patient does have some acute on chronic anemia will trend hemoglobin and type and screen in case of need for transfusion. Urology has been consulted and patient is NPO for possible cystoscopy. Will hold the patient's home antihypertensives, aspirin therapy and Plavix. Patient has been admitted as observation status. MEDICAL DECISION MAKING NARRATIVE -Spoke with the ED provider in detail regarding patient's evaluation, workup and management -Patient seen and examined at bedside -Collaborated with patient's nurse at the bedside in detail and addressed all concerns -Labs, electrolytes, radiology, investigations and test results personally reviewed and interpreted unless otherwise specified -ED/Consult/Nursing/Ancilliary notes on the chart reviewed and appreciated -Spoke with patient at bedside and diagnosis and plan of care was discussed. All questions answered. Hospitalist [facility] Advance Care Plan I have confirmed that the patient's Advanced Care Plan is present, code status is documented, or surrogate decision maker is listed in patient medical record.: Yes Medication Reconciliation I have utilized all available resources to obtain, update and review the patients current medications (includes all prescriptions, OTC, herbals, cannabis, and nutritional supplements).: Yes
--- OUTSIDE RECORDS SUMMARY | 2025-05-11 04:46 | XMS_ITS | Patient Health Record ---
Author Organization [facility] Address [address] [place] [address] Care Team Providers Care Riveter Name Role Phone Gelacio Justin MD Primary Care Provider Unava ilable Reason For Referral No Information Plan Of Treatment Pending Test Test Name Order Date Colonoscopy 06/30/2018 Insurance Providers Payer Name Payer Address Payer Phone Subscriber Number Group Number Insured Name Patient Relationship to Insured Coverage Start Date Coverage End Date Medicare-I L - Part A Medicare [address] [facility] [place] [id number] Jillian Riddle Self - patient is the insured for Life - Medicare Sup [address] [place], [place] [id number] Jillian Riddle Self - patient is the insured Medicare-M O Medicare [address] [address] [place], [place] [id number] Jillian Riddle Self - patient is the insured
--- NOTE | 2025-05-11 04:57 | ADMGEN ---
This patient, Jillian Riddle, was admitted to Intensive Care Unit-2. Patient/family oriented to hospital policies and general routines including ID bracelet, bed and alarms, visiting hours, pain management, procedures, bathroom and other care routines, personal items, smoking policy, room service/diet, and visiting hours. Information on how to activate the Rapid Response Team has been discussed. Patient/Family are encouraged to report perceived risks to care and to ask questions if they do not understand what they are told or what they should do.
[2025-05-11] MEDS: VANCOMYCIN 1,750 MG/NS 500 ML 1,750 MG/500 ML BAG 250 MG IVPB (05:51)
[2025-05-11] MEDS: GABAPENTIN 100 MG CAPSULE PO ×2 (07:51→16:42)
[2025-05-11 08:01] LABS: Anion Gap 5 mmol/L (4-12); Blood Urea Nitrogen 24 mg/dL (7-17); Calcium 7.9 mg/dL (8.4-10.2); Carbon Dioxide 21 mmol/L (22-30); Chloride 109 mmol/L (98-107); Estimated CRCL calculation 48 ml/min; Estimated Glomerular Filt Rate > 60; Glucose 91 mg/dL (65-110); Potassium 4.3 mmol/L (3.4-5.0); Sodium 135 mmol/L (137-145)
[2025-05-11 08:26] LABS: Hematocrit 29.3 % (37.0-47.0); Hemoglobin 9.5 g/dL (12.0-15.0); Immature Granulocyte Percent A 0.5 % (0-0.5); Lymphocytes Absolute Auto 1.77 K/mm3 (0.9-3.2); Mean Corpuscular HGB Conc 32.4 g/dl (32-36); Mean Corpuscular Hemoglobin 32.4 pg (26-34); Mean Corpuscular Volume 100.0 fl (80-100); Nucleated Red Blood Cells Absolute Auto 0.000 K/mm3 (0.0-0.012); Nucleated Red Blood Cells Perc 0.0 % (0.0-0.2); Platelet Count Result 224 k/mm3 (150-375); Red Blood Count 2.93 M/mm3 (4.2-5.4); White Blood Count 10.9 K/mm3 (4.5-10.0)
[2025-05-11] MEDS: SODIUM CHLORIDE 0.9% IV 1,000 ML 125 ML IV CONT ×2 (09:33→16:42)
--- NOTE | 2025-05-11 10:24 | P.PNIM_ITS ---
Progress Note: A&P Assessment and Plan (1) Sepsis: Qualifiers: Sepsis acute organ dysfunction status: unspecified Sepsis type: sepsis due to unspecified organism Qualified Code(s): A41.9 - Sepsis, unspecified o rganism Code(s): A41.9 - Sepsis, unspecified organism Status: Acute (2) Gross hematuria: Code(s): R31.0 - Gross hematuria Status: Acute Assessment and Plan: She started having clots yesterday at 6:00 p.m. and she was complaining burning pain upon peeing. 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 Urology consulted, CBI started. For hypotension, she was admitted to ICU but responded to IVF resuscitation. Continue CBI with frequent flushing to prevent clotting Tentative plan for cystoscopy by Urology to rule out malignancy (3) Blood loss anemia: Code(s): D50.0 - Iron deficiency anemia secondary to blood loss (chronic) Status: Resolved Assessment and Plan: On admission hemoglobin 10.9, slowly downtrending to 9.5 Check iron study Discontinue aspirin and Plavix Daily CBC (4) Hyponatremia: Code(s): E87.1 - Hypo-osmolality and hyponatremia Status: Acute Assessment and Plan: Sodium 175 today (5) Acute hypotension: Code(s): I95.9 - Hypotension, unspecified Status: Acute Assessment and Plan: Hypotension resolved after fluid resuscitation (6) Acute on chronic anemia: Code(s): D64.9 - Anemia, unspecified Status: Acute Time Spent With Patient Time: 45 minutes Subjective Date/time seen: 05/11/25 10:24 Interval history: complains suprapubic pain. There was clots in the CBI and after multiple attempts of suctioning the nurses were able to break the clots. Discussed with the Urology on-call Dr. Velasquez, he will see her today for possible cystoscopy. She denies fever and chills. Exam Narrative: APPEARANCE: No acute distress, nontoxic EYES: EOMI HEENT: Normocephalic, atraumatic, OMM RESPIRATORY: No respiratory distress Clear to auscultation bilaterally with no rhonchi wheezing or rales. CARDIOVASCULAR: RRR, S1 and S2 without murmurs rubs or gallops. ABDOMINAL: Soft, nontender, nondistended, no rebound or guarding MSK: Right BKA NEURO: Awake and alert. Following commands, speech normal, no focal deficits SKIN:: Warm, dry. No rashes lesions or abrasions PSYCHIATRIC: Normal affect/mood, Objective Data Vital Signs Vital Signs: Vital Signs - 24 hr 05/10/25 19:15 05/10/25 20:25 05/10/25 20:50 Temperature 36.1 C L 36.7 C Pulse Rate 69 65 Respiratory Rate 18 20 Blood Pressure 132/53 L 124/57 L Pulse Oximetry 100 99 99 Oxygen Delivery Room Air 05/10/25 21:05 05/10/25 21:36 05/10/25 22:46 Temperature Pulse Rate 80 Respiratory Rate Blood Pressure 112/41 L 106/42 L Pulse Oximetry 96 100 99 Oxygen Delivery 05/10/25 23:00 05/10/25 23:14 05/10/25 23:15 Temperature Pulse Rate 85 Respiratory Rate 18 Blood Pressure 110/35 L 110/35 L Pulse Oximetry 100 100 97 Oxygen Delivery 05/10/25 23:16 05/10/25 23:31 05/10/25 23:32 Temperature Pulse Rate Respiratory Rate Blood Pressure 123/59 L 113/52 L Pulse Oximetry 100 98 99 Oxygen Delivery 05/10/25 23:46 05/11/25 00:00 05/11/25 00:03 Temperature Pulse Rate Respiratory Rate Blood Pressure 91/55 L Pulse Oximetry 100 99 Oxygen Delivery 05/11/25 00:15 05/11/25 00:31 05/11/25 00:32 Temperature Pulse Rate Respiratory Rate Blood Pressure 102/53 L Pulse Oximetry 100 98 98 Oxygen Delivery 05/11/25 00:45 05/11/25 00:46 05/11/25 00:52 Temperature Pulse Rate Respiratory Rate Blood Pressure 61/30 L 100/59 L Pulse Oximetry 97 99 97 Oxygen Delivery 05/11/25 01:00 05/11/25 01:01 05/11/25 01:15 Temperature Pulse Rate Respiratory Rate Blood Pressure 108/57 L Pulse Oximetry 98 96 95 Oxygen Delivery 05/11/25 01:16 05/11/25 01:30 05/11/25 01:31 Temperature Pulse Rate Respiratory Rate Blood Pressure 101/56 L 93/55 L Pulse Oximetry 95 96 96 Oxygen Delivery 05/11/25 01:45 05/11/25 01:46 05/11/25 02:00 Temperature Pulse Rate Respiratory Rate Blood Pressure 92/60 L Pulse Oximetry 97 97 99 Oxygen Delivery 05/11/25 02:01 05/11/25 02:15 05/11/25 02:16 Temperature Pulse Rate 74 Respiratory Rate 16 Blood Pressure 88/28 L 71/53 L Pulse Oximetry 96 97 98 Oxygen Delivery 05/11/25 02:29 05/11/25 02:30 05/11/25 02:31 Temperature Pulse Rate 75 86 74 Respiratory Rate 24 H 18 18 Blood Pressure 67/33 L 73/41 L 70/49 L Pulse Oximetry 98 99 100 Oxygen Delivery 05/11/25 02:32 05/11/25 02:37 05/11/25 02:39 Temperature Pulse Rate 74 Respiratory Rate 18 Blood Pressure 67/42 L 82/40 L Pulse Oximetry 98 100 Oxygen Delivery 05/11/25 02:43 05/11/25 02:45 05/11/25 02:50 Temperature Pulse Rate Respiratory Rate Blood Pressure 77/41 L 69/52 L Pulse Oximetry 95 Oxygen Delivery 05/11/25 02:56 05/11/25 03:00 05/11/25 03:04 Temperature Pulse Rate 74 80 Respiratory Rate 24 H 21 H Blood Pressure 115/81 117/40 L Pulse Oximetry 100 68 L 100 Oxygen Delivery 05/11/25 03:09 05/11/25 03:11 05/11/25 03:15 Temperature Pulse Rate 74 73 74 Respiratory Rate 20 22 H 21 H Blood Pressure 106/36 L 107/38 L Pulse Oximetry 97 99 Oxygen Delivery 05/11/25 03:16 05/11/25 03:21 05/11/25 03:24 Temperature Pulse Rate Respiratory Rate Blood Pressure 108/47 L 88/37 L 75/44 L Pulse Oximetry 100 95 Oxygen Delivery 05/11/25 03:25 05/11/25 03:30 05/11/25 03:31 Temperature Pulse Rate 75 75 Respiratory Rate 12 23 H Blood Pressure 76/58 L 103/51 L Pulse Oximetry 96 92 98 Oxygen Delivery 05/11/25 03:45 05/11/25 03:50 05/11/25 03:55 Temperature Pulse Rate 68 73 73 Respiratory Rate 16 17 17 Blood Pressure 112/47 L 122/44 L 124/51 L Pulse Oximetry 97 99 99 Oxygen Delivery 05/11/25 04:00 05/11/25 04:05 05/11/25 04:10 Temperature Pulse Rate 71 77 76 Respiratory Rate 16 19 16 Blood Pressure 115/52 L 111/55 L 122/53 L Pulse Oximetry 100 94 98 Oxygen Delivery 05/11/25 04:35 05/11/25 04:39 05/11/25 06:00 Temperature 36.5 C 36.6 C Pulse Rate 74 76 77 Respiratory Rate 16 18 Blood Pressure 129/53 L 117/58 L 86/72 L Pulse Oximetry 97 96 Oxygen Delivery 05/11/25 06:00 05/11/25 06:00 05/11/25 06:30 Temperature 36.5 C Pulse Rate 65 65 65 Respiratory Rate 16 16 Blood Pressure 86/72 L 100/66 Pulse Oximetry 97 96 Oxygen Delivery 05/11/25 07:00 05/11/25 08:00 05/11/25 09:35 Temperature 36.8 C 36.4 C L Pulse Rate 63 70 67 Respiratory Rate 16 18 Blood Pressure 117/69 101/56 L Pulse Oximetry 97 100 Oxygen Delivery Intake/Output Intake/Output: Intake & Output 05/08/25 05/09/25 05/10/25 05/11/25 23:59 23:59 23:59 23:59 Intake Total 1000 1250 Output Total 4400 725 Balance -3400 525 Meds/Results Medications: Active Medications Generic Name Dose Route Start Last Admin Trade Name Freq PRN Reason Stop Dose Admin Acetaminophen 650 mg 05/11/25 01:28 Acetaminophen 325 Mg Tablet PO Q4H PRN Mild Pain (1-3) or Fever Dextrose 12.5 gm 05/11/25 01:28 Dextrose 50% 25 Gm/50 Ml Syringe IV PUSH PRN PRN Hypoglycemia Protocol Estradiol 0.5 mg 05/11/25 09:00 05/11/25 07:51 Estradiol 0.5 Mg Tablet PO 0.5 mg DAILY OLIVA Administration Gabapentin 100 mg 05/11/25 09:00 05/11/25 07:51 Gabapentin 100 Mg Capsule PO 100 mg BID OLIVA Administration Glucagon 1 mg 05/11/25 01:28 Glucagon For Inj 1 Mg Vial IM PRN PRN Hypoglycemia Protocol Glucose 15 gm 05/11/25 01:28 Glucose Oral Gel 15 Gm Of Glucse In 37.5 Gm Tube PO PRN PRN Hypoglycemia Protocol Dextrose 1,000 mls @ 100 mls/hr 05/11/25 01:28 Dextrose 5% 1,000 Ml IVPB PRN PRN Hypoglycemia Protocol Cefepime HCl 2 gm/ Sodium 50 mls @ 100 mls/hr 05/11/25 15:00 Chloride IVPB Q12H OLIVA Sodium Chloride 1,000 mls @ 125 mls/hr 05/11/25 07:20 05/11/25 09:33 Normal Saline Iv IV CONT 125 mls/hr .Q8H OLIVA Administration Morphine Sulfate 2 mg 05/11/25 01:32 Morphine Sulfate (*Crx) 4 Mg/Ml Inj IV PUSH Q2H PRN Pain Rated 7-10 Ondansetron HCl 4 mg 05/11/25 01:28 Ondansetron Inj 4 Mg/2 Ml Vial IV PUSH Q4H PRN Nausea Simvastatin 10 mg 05/11/25 21:00 Simvastatin 10 Mg Tablet PO HS OLIVA Tamsulosin HCl 0.4 mg 05/11/25 21:00 Tamsulosin Hcl 0.4 Mg Capsule PO HS [facility] Labs Labs: Laboratory Results - last 24 hr 05/10/25 05/10/25 05/11/25 20:18 20:19 02:46 WBC 9.3 RBC 3.40 L Hgb 10.9 L Hct 33.7 L MCV 99.1 MCH 32.1 MCHC 32.3 RDW 12.9 Plt Count 282 MPV 9.8 Immature Gran % (Auto) 0.3 Neut % (Auto) 60.0 Lymph % (Auto) 29.6 [place] % (Auto) 6.1 Eos % (Auto) 3.2 Baso % (Auto) 0.8 Lymph # (Auto) 2.76 [place] # (Auto) 0.6 Eos # (Auto) 0.3 Baso # (Auto) 0.1 Abs Immat Gran (auto) 0.03 Absolute Neuts (auto) 5.6 Absolute Nucleated RBC 0.000 Nucleated RBC % 0.0 PT 13.2 INR 1.0 APTT 22.8 Sodium 134 L Potassium 4.5 Chloride 102 Carbon Dioxide 26 Anion Gap 6 BUN 31 H D Creatinine 0.89 Estim Creat Clear Calc Not Reportable Estimated GFR > 60 Glucose 97 POC Capillary Glucose 101 Lactic Acid Calcium 9.1 Total Bilirubin 0.3 AST 24 ALT 12 Alkaline Phosphatase 56 C-Reactive Protein Cancelled Total Protein 6.6 Albumin 4.0 Procalcitonin Urine Color Dark red H Urine Appearance Turbid H Urine pH 7.5 Ur Specific [place] 1.025 Urine Protein 3+ H Urine Glucose (UA) Negative Urine Ketones Negative Ur Blood (Man) 4+ H Urine Nitrate Negative Urine Bilirubin Negative Urine Urobilinogen 0.2 Leukocyte Esterase Rfl Negative Urine RBC >100 H Urine WBC 0-5 Ur Squamous Epith Cells None seen Urine Bacteria Rare Blood Type Antibody Screen 05/11/25 05/11/25 05/11/25 02:49 03:17 03:21 WBC 12.0 H RBC 2.92 L Hgb 9.3 L Hct 29.0 L MCV 99.3 MCH 31.8 MCHC 32.1 RDW 12.8 Plt Count 250 MPV 9.6 Immature Gran % (Auto) 0.3 Neut % (Auto) 69.8 Lymph % (Auto) 22.0 [place] % (Auto) 5.3 Eos % (Auto) 2.1 Baso % (Auto) 0.5 Lymph # (Auto) 2.63 [place] # (Auto) 0.6 Eos # (Auto) 0.3 Baso # (Auto) 0.1 Abs Immat Gran (auto) 0.04 H Absolute Neuts (auto) 8.4 H Absolute Nucleated RBC 0.000 Nucleated RBC % 0.0 PT INR APTT Sodium 135 L Potassium 4.3 Chloride 109 H Carbon Dioxide 21 L Anion Gap 5 BUN 24 H Creatinine 0.77 Estim Creat Clear Calc 48 Estimated GFR > 60 Glucose 91 POC Capillary Glucose Lactic Acid 1.3 Calcium 7.9 L Total Bilirubin AST ALT Alkaline Phosphatase C-Reactive Protein 0.7 Total Protein Albumin Procalcitonin 0.1 Urine Color Urine Appearance Urine pH Ur Specific [place] Urine Protein Urine Glucose (UA) Urine Ketones Ur Blood (Man) Urine Nitrate Urine Bilirubin Urine Urobilinogen Leukocyte Esterase Rfl Urine RBC Urine WBC Ur Squamous Epith Cells Urine Bacteria Blood Type A Positive Antibody Screen Negative 05/11/25 08:20 WBC 10.9 H RBC 2.93 L Hgb 9.5 L Hct 29.3 L MCV 100.0 MCH 32.4 MCHC 32.4 RDW 13.0 Plt Count 224 MPV 9.6 Immature Gran % (Auto) 0.5 Neut % (Auto) 77.9 H Lymph % (Auto) 16.2 L [place] % (Auto) 3.3 Eos % (Auto) 1.6 Baso % (Auto) 0.5 Lymph # (Auto) 1.77 [place] # (Auto) 0.4 Eos # (Auto) 0.2 Baso # (Auto) 0.1 Abs Immat Gran (auto) 0.05 H Absolute Neuts (auto) 8.5 H Absolute Nucleated RBC 0.000 Nucleated RBC % 0.0 PT INR APTT Sodium Potassium Chloride Carbon Dioxide Anion Gap BUN Creatinine Estim Creat Clear Calc Estimated GFR Glucose POC Capillary Glucose Lactic Acid Calcium Total Bilirubin AST ALT Alkaline Phosphatase C-Reactive Protein Total Protein Albumin Procalcitonin Urine Color Urine Appearance Urine pH Ur Specific [place] Urine Protein Urine Glucose (UA) Urine Ketones Ur Blood (Man) Urine Nitrate Urine Bilirubin Urine Urobilinogen Leukocyte Esterase Rfl Urine RBC Urine WBC Ur Squamous Epith Cells Urine Bacteria Blood Type Antibody Screen
[2025-05-11] MEDS: WATER FOR IRRIGATION, STERILE 1,000 ML BOTTLE 1000 ML ×3 (10:52→18:30)
[2025-05-11 13:36] LABS: Ferritin 23.70 ng/mL (11.1-264)
--- NOTE | 2025-05-11 14:39 | WPDURCON ---
Assessment and Plan Assessment and plan (1) Gross hematuria: Code(s): R31.0 - Gross hematuria Status: Acute (2) Irradiation cystitis with hematuria: Code(s): N30.41 - Irradiation cystitis with hematuria Status: Acute Plan Patient with new onset hematuria/clot retention with history of UTI and pelvic radiation, on ASA & Plavix for thromboembolic events. PLAN: At this time, her urine is crystal clear on slow rate CBI Continue CBI overnight CT Pelvis noncon to assess for residual clot burden to correlate with how she does clinically overnight NPO at midnight in case of need for clot evacuation If she has significant CBI issues overnight and/or CT looks concerning, then may need to proceed with Cysto, Clot Evacuation while NPO and off blood thinners If no significant CBI issues overnight and CT looks reassuring, then can lift NPO, continue CBI, and restart Plavix while on CBI to monitor for bleeding Blood cultures pending, there does not appear to be a urine culture Urology Consult Note HPI Date Seen: 05/11/25 Requesting Physician: Marj Farmer DO Primary Care Provider: Gelacio Justin MD Consult Narrative Narrative: Jillian Riddle is a 74 year old female with a pertinent past history of uterine cancer s/p hysterectomy and pelvic radiation in [place] in the 1970s, who had been seen by Dr. Miner in our group many years ago for multiple UTI and OAB, had a prolapse repair done by Dr. 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 She reports that over the past couple of days, she had dysuria and thought it may have been a UTI, though she hasn't had one in quite awhile. However, when she passed a large clot while voiding on Tuesday, she felt it best to come into the hospital. In the ER, they placed an 18Fr 3-way chan catheter and called Urology reporting it kept clotting off. They exchanged it for a 22Fr 3-way, and this morning things have been much better. At the time of my examination this AM, nursing had recently evacuated some clots due to CBI clotting off, but her urine was completely clear on slow rate CBI. I irrigated her bladder at the beside using about 500cc sterile NS, with return of completely clear irrigant each time. She remains off of plavix at this time. CTU at time of admission showed clot in the bladder. 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) Status post failed thrombectomy 09/2022 and subsequent wkzel-nof-gdts amputation Right knee DJD Mallet finger of right finger(s) Status post surgery 04/2022 Cerebellar ataxia Androgenic alopecia Essential (primary) hypertension Gastro-esophageal reflux disease without esophagitis Irradiation cystitis with hematuria Squamous cell skin cancer, face Ulcerative (chronic) pancolitis without complications Surgical History Surgical History (Updated 05/11/25 @ 07:48 by Marj Farmer DO) History of right below knee amputation (09/2022) History of colonoscopy with polypectomy History of bunionectomy of both great toes S/P total right hip arthroplasty (06/02/22) 06/02/2022 History of removal of pigmented skin lesion S/P tonsillectomy and adenoidectomy History of partial hysterectomy History of lumbar surgery L4 and 5 History of stress incontinence procedure using tension free vaginal tape Family History Family History Father Family history of glaucoma Hypertension Family history of elevated blood lipids Family history of cardiovascular disease Cerebrovascular accident Mother Family history of cardiovascular disease Social History Social History (Updated 05/11/25 @ 07:51 by Marj Farmer DO) Social History: She lives with her of 58 years. They had 3 sons and a daughter. She was diagnosed with uterine cancer while she was 6 months with her daughter and and up with stage IV uterine cancer when she refused treatment until her daughter was born. She needed denies any alcohol marijuana or illicit drugs. She is retired from [employer]. She drinks a glass a wine on occasion. She smoked no more than 10 cigarettes a day and started smoking when she was a teenager and quit in 2021. Code status: Full code Healthcare power of contract attorney: Smoking packs per day: 0.25 Smoking cigarettes per day: 5.0 Years smoked: 50 Smoking pack-years: 12.50 Smoking status: Former smoker Second hand tobacco smoke exposure: Yes Smoking end date: 05/01/22 Alcohol intake: current Alcohol use details: Glass a wine on rare occasion Substance use: never Substance use type: does not use Other substance usage details: reports taking prescription meds as prescribed. no oxycodone for 3 months. Last use: notes rare ETOH use-last was 1/2 glass wine on Father's Day. 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 Gender identity (if verbalized by the patient): Female Spiritual care concerns: No Meds Home Medications and Allergies Home Medications ?Medication ?Instructions ?Recorded ?Confirmed ?Type zinc 50 mg tablet 50 mg PO DAILY 01/20/21 05/11/25 History multivitamin 1 tablet PO DAILY 04/12/22 05/11/25 History Ocuvite See Rx Instructions .Route .COMPLEX 06/10/22 05/11/25 History cholecalciferol (vitamin D3) 10 10 mcg PO DAILY 06/10/22 05/11/25 History mcg (400 unit) capsule aspirin 81 mg chewable tablet 81 mg PO DAILY@0800 #30 tabs 06/20/22 05/11/25 Rx (Children's Aspirin) cyanocobalamin (vitamin B-12) 1,000 mcg PO QAM #20 tabs 11/04/22 05/11/25 Rx 1,000 mcg tablet (Vitamin B-12) calcium carbonate 500 mg PO DAILY 05/02/23 05/11/25 History estradiol 0.5 mg tablet See Rx Instructions .Route 11/19/24 05/11/25 Rx .COMPLEX #90 tabs lisinopril 20 mg tablet See Rx Instructions .Route 12/28/24 05/11/25 Rx .COMPLEX #90 tabs simvastatin 10 mg tablet 10 mg PO HS #90 tabs 01/31/25 05/11/25 Rx metoprolol succinate 25 mg 12.5 mg (1/2 x 25 mg) PO BID #90 03/04/25 05/11/25 Rx tablet,extended release 24 hr tabs (Toprol XL) clopidogrel 75 mg tablet See Rx Instructions .Route 04/15/25 05/11/25 Rx .COMPLEX #30 tabs omeprazole 20 mg capsule,delayed See Rx Instructions .Route 04/15/25 05/11/25 Rx release .COMPLEX #90 caps tamsulosin 0.4 mg capsule 0.4 mg PO HS #90 caps 04/19/25 05/11/25 Rx gabapentin 100 mg capsule See Rx Instructions .Route 05/06/25 05/11/25 Rx .COMPLEX #60 caps Allergies Allergy/AdvReac Type Severity Reaction Status Date / Time cyclobenzaprine Allergy Severe orthostasis Verified 05/06/25 10:21 sulfamethoxazole (From Allergy Intermediate Rash Verified 05/06/25 10:21 Bactrim) trimethoprim (From Bactrim) Allergy Intermediate Rash Verified 05/06/25 10:21 amoxicillin AdvReac Severe Gastrointestinal Verified 05/06/25 10:21 Upset adhesive tape AdvReac Rash Verified 05/06/25 10:21 nickel AdvReac Itching/BLI Verified 05/06/25 10:21 STERS nitrofurantoin Allergy Unknown rash Uncoded 05/06/25 10:21 Vital Signs Vital Signs - 24 hr 05/10/25 19:15 05/10/25 20:25 05/10/25 20:50 Temperature 36.1 C L 36.7 C Pulse Rate 69 65 Respiratory Rate 18 20 Blood Pressure 132/53 L 124/57 L Pulse Oximetry 100 99 99 Oxygen Delivery Room Air 05/10/25 21:05 05/10/25 21:36 05/10/25 22:46 Temperature Pulse Rate 80 Respiratory Rate Blood Pressure 112/41 L 106/42 L Pulse Oximetry 96 100 99 Oxygen Delivery 05/10/25 23:00 05/10/25 23:14 05/10/25 23:15 Temperature Pulse Rate 85 Respiratory Rate 18 Blood Pressure 110/35 L 110/35 L Pulse Oximetry 100 100 97 Oxygen Delivery 05/10/25 23:16 05/10/25 23:31 05/10/25 23:32 Temperature Pulse Rate Respiratory Rate Blood Pressure 123/59 L 113/52 L Pulse Oximetry 100 98 99 Oxygen Delivery 05/10/25 23:46 05/11/25 00:00 05/11/25 00:03 Temperature Pulse Rate Respiratory Rate Blood Pressure 91/55 L Pulse Oximetry 100 99 Oxygen Delivery 05/11/25 00:15 05/11/25 00:31 05/11/25 00:32 Temperature Pulse Rate Respiratory Rate Blood Pressure 102/53 L Pulse Oximetry 100 98 98 Oxygen Delivery 05/11/25 00:45 05/11/25 00:46 05/11/25 00:52 Temperature Pulse Rate Respiratory Rate Blood Pressure 61/30 L 100/59 L Pulse Oximetry 97 99 97 Oxygen Delivery 05/11/25 01:00 05/11/25 01:01 05/11/25 01:15 Temperature Pulse Rate Respiratory Rate Blood Pressure 108/57 L Pulse Oximetry 98 96 95 Oxygen Delivery 05/11/25 01:16 05/11/25 01:30 05/11/25 01:31 Temperature Pulse Rate Respiratory Rate Blood Pressure 101/56 L 93/55 L Pulse Oximetry 95 96 96 Oxygen Delivery 05/11/25 01:45 05/11/25 01:46 05/11/25 02:00 Temperature Pulse Rate Respiratory Rate Blood Pressure 92/60 L Pulse Oximetry 97 97 99 Oxygen Delivery 05/11/25 02:01 05/11/25 02:15 05/11/25 02:16 Temperature Pulse Rate 74 Respiratory Rate 16 Blood Pressure 88/28 L 71/53 L Pulse Oximetry 96 97 98 Oxygen Delivery 05/11/25 02:29 05/11/25 02:30 05/11/25 02:31 Temperature Pulse Rate 75 86 74 Respiratory Rate 24 H 18 18 Blood Pressure 67/33 L 73/41 L 70/49 L Pulse Oximetry 98 99 100 Oxygen Delivery 05/11/25 02:32 05/11/25 02:37 05/11/25 02:39 Temperature Pulse Rate 74 Respiratory Rate 18 Blood Pressure 67/42 L 82/40 L Pulse Oximetry 98 100 Oxygen Delivery 05/11/25 02:43 05/11/25 02:45 05/11/25 02:50 Temperature Pulse Rate Respiratory Rate Blood Pressure 77/41 L 69/52 L Pulse Oximetry 95 Oxygen Delivery 05/11/25 02:56 05/11/25 03:00 05/11/25 03:04 Temperature Pulse Rate 74 80 Respiratory Rate 24 H 21 H Blood Pressure 115/81 117/40 L Pulse Oximetry 100 68 L 100 Oxygen Delivery 05/11/25 03:09 05/11/25 03:11 05/11/25 03:15 Temperature Pulse Rate 74 73 74 Respiratory Rate 20 22 H 21 H Blood Pressure 106/36 L 107/38 L Pulse Oximetry 97 99 Oxygen Delivery 05/11/25 03:16 05/11/25 03:21 05/11/25 03:24 Temperature Pulse Rate Respiratory Rate Blood Pressure 108/47 L 88/37 L 75/44 L Pulse Oximetry 100 95 Oxygen Delivery 05/11/25 03:25 05/11/25 03:30 05/11/25 03:31 Temperature Pulse Rate 75 75 Respiratory Rate 12 23 H Blood Pressure 76/58 L 103/51 L Pulse Oximetry 96 92 98 Oxygen Delivery 05/11/25 03:45 05/11/25 03:50 05/11/25 03:55 Temperature Pulse Rate 68 73 73 Respiratory Rate 16 17 17 Blood Pressure 112/47 L 122/44 L 124/51 L Pulse Oximetry 97 99 99 Oxygen Delivery 05/11/25 04:00 05/11/25 04:05 05/11/25 04:10 Temperature Pulse Rate 71 77 76 Respiratory Rate 16 19 16 Blood Pressure 115/52 L 111/55 L 122/53 L Pulse Oximetry 100 94 98 Oxygen Delivery 05/11/25 04:35 05/11/25 04:39 05/11/25 06:00 Temperature 36.5 C 36.6 C Pulse Rate 74 76 77 Respiratory Rate 16 18 Blood Pressure 129/53 L 117/58 L 86/72 L Pulse Oximetry 97 96 Oxygen Delivery 05/11/25 06:00 05/11/25 06:00 05/11/25 06:30 Temperature 36.5 C Pulse Rate 65 65 65 Respiratory Rate 16 16 Blood Pressure 86/72 L 100/66 Pulse Oximetry 97 96 Oxygen Delivery 05/11/25 07:00 05/11/25 08:00 05/11/25 09:35 Temperature 36.8 C 36.4 C L Pulse Rate 63 70 67 Respiratory Rate 16 18 Blood Pressure 117/69 101/56 L Pulse Oximetry 97 100 Oxygen Delivery 05/11/25 12:00 Temperature 36.5 C Pulse Rate 74 Respiratory Rate 18 Blood Pressure 137/72 Pulse Oximetry 100 Oxygen Delivery Exam Narrative: NAD, AAOx2, has RLE AKA; 22Fr 3-way chan draining clear irrigant on slow rate CBI Results Labs 05/11/25 08:20 05/11/25 03:17 Labs: Short CBC 05/10/25 05/11/25 05/11/25 Range/Units 20:18 02:49 08:20 WBC 9.3 12.0 H 10.9 H (4.5-10.0) K/mm3 Hgb 10.9 L 9.3 L 9.5 L (12.0-15.0) g/dL Hct 33.7 L 29.0 L 29.3 L (37.0-47.0) % Plt Count 282 250 224 (150-375) k/mm3 BMP 05/10/25 05/11/25 20:18 03:17 Sodium 134 L 135 L Potassium 4.5 4.3 Chloride 102 109 H Carbon Dioxide 26 21 L BUN 31 H D 24 H Creatinine 0.89 0.77 Glucose 97 91 Calcium 9.1 7.9 L Liver Function 05/10/25 Range/Units 20:18 Total Bilirubin 0.3 (0.2-1.3) mg/dL AST 24 (14-36) U/L ALT 12 (6-35) U/L Alkaline Phosphatase 56 (38-126) U/L Albumin 4.0 (3.5-5.1) g/dL Urine 05/10/25 Range/Units 20:19 Urine Color Dark red H (Yellow) Urine Appearance Turbid H (Clear) Urine pH 7.5 (5.0-9.0) Ur Specific [place] 1.025 (1.001-1.035) Urine Protein 3+ H (Negative) mg/dL Urine Glucose (UA) Negative (Negative) mg/dL
[2025-05-11] MEDS: CALCIUM GLUC 1,000 MG/NS 50 ML 1,000 MG/50 ML BAG 100 MG IVPB (18:35)
[2025-05-11] MEDS: TAMSULOSIN HCL 0.4 MG CAPSULE PO (21:14)
[2025-05-11] MEDS: SIMVASTATIN 10 MG TABLET PO (21:14)
[2025-05-12] VITALS (15 sets, daily range): BP systolic 135–181; BP diastolic 56–76; PULSE 70–88; RESP 14–20; TEMP 36.6–36.8; O2SAT 96–100
[2025-05-12] MEDS: SODIUM CHLORIDE 0.9% IV 1,000 ML 125 ML IV CONT (01:20)
[2025-05-12] MEDS: CEFEPIME 2 GM in SODIUM CHLORIDE 0.9% IV 50 ML 100 ML IVPB ×2 (02:32→14:59)
[2025-05-12 04:58] LABS: Hematocrit 28.5 % (37.0-47.0); Hemoglobin 8.8 g/dL (12.0-15.0); Immature Granulocyte Percent A 0.3 % (0-0.5); Lymphocytes Absolute Auto 1.51 K/mm3 (0.9-3.2); Mean Corpuscular HGB Conc 30.9 g/dl (32-36); Mean Corpuscular Hemoglobin 32.1 pg (26-34); Mean Corpuscular Volume 104.0 fl (80-100); Nucleated Red Blood Cells Absolute Auto 0.000 K/mm3 (0.0-0.012); Nucleated Red Blood Cells Perc 0.0 % (0.0-0.2); Platelet Count Result 209 k/mm3 (150-375); Red Blood Count 2.74 M/mm3 (4.2-5.4); White Blood Count 8.0 K/mm3 (4.5-10.0)
[2025-05-12 05:22] LABS: Anion Gap 3 mmol/L (4-12); Blood Urea Nitrogen 11 mg/dL (7-17); Calcium 8.1 mg/dL (8.4-10.2); Carbon Dioxide 20 mmol/L (22-30); Chloride 112 mmol/L (98-107); Estimated CRCL calculation 55 ml/min; Estimated Glomerular Filt Rate > 60; Glucose 85 mg/dL (65-110); Potassium 3.7 mmol/L (3.4-5.0); Sodium 135 mmol/L (137-145)
--- NOTE | 2025-05-12 09:04 | PM.IMPN ---
Progress Note: A&P Assessment and Plan (1) Sepsis: Qualifiers: Sepsis acute organ dysfunction status: unspecified Sepsis type: sepsis due to unspecified organism Qualified Code(s): A41.9 - Sepsis, unspecified organism Code(s): A41.9 - Sepsis, unspecified organism Status: Acute (2) Gross hematuria: Code(s): R31.0 - Gross hematuria Status: Acute Assessment and Plan: She started having clots 05/10 at 6:00 p.m. and she was complaining burning pain upon peeing. 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 IV fluid discontinued. CBI resumed. CT abdomen and pelvis shows hematoma in the bladder. Urology reviewed CT abdomen and pelvis-less suspicious for malignancy Will resume aspirin and Plavix and monitor if she start bleeds. If she start throwing clots in the bladder will stop aspirin and Plavix (3) Blood loss anemia: Code(s): D50.0 - Iron deficiency anemia secondary to blood loss (chronic) Status: Resolved Assessment and Plan: On admission hemoglobin 10.9, slowly downtrending to 9.5 Check iron study Resume aspirin and Plavix Daily CBC (4) Hyponatremia: Code(s): E87.1 - Hypo-osmolality and hyponatremia Status: Acute Assessment and Plan: Sodium 135 today (5) Acute hypotension: Code(s): I95.9 - Hypotension, unspecified Status: Acute Assessment and Plan: Hypotension resolved after fluid resuscitation (6) Acute on chronic anemia: Code(s): D64.9 - Anemia, unspecified Status: Acute Assessment and Plan: Follow iron study Plan DVT prophylaxis-SCD Diet-general diet Time Spent With Patient Time: 35 minutes Subjective Date/time seen: 05/12/25 09:04 Interval history: Hematuria resolved. CT abdomen and pelvis shows a hematoma in the bladder. Aspirin and Plavix resumed. Patient denies any suprapubic pain. Review of Systems Review of Systems: 12 systems were reviewed with pertinent positives and negatives per HPI. Except as documented in the HPI, all other systems were reviewed and are negative. Exam Narrative: APPEARANCE: No acute distress, nontoxic EYES: EOMI HEENT: Normocephalic, atraumatic, OMM RESPIRATORY: No respiratory distress Clear to auscultation bilaterally with no rhonchi wheezing or rales. CARDIOVASCULAR: RRR, S1 and S2 without murmurs rubs or gallops. ABDOMINAL: Soft, nontender, nondistended, no rebound or guarding MSK: Right BKA NEURO: Awake and alert. Following commands, speech normal, no focal deficits SKIN:: Warm, dry. No rashes lesions or abrasions PSYCHIATRIC: Normal affect/mood, Objective Data Vital Signs Vital Signs: Vital Signs - 24 hr 05/11/25 09:35 05/11/25 10:00 05/11/25 12:00 Temperature 36.4 C L 36.5 C Pulse Rate 67 67 74 Respiratory Rate 18 18 Blood Pressure 101/56 L 137/72 Pulse Oximetry 100 100 Oxygen Delivery 05/11/25 12:00 05/11/25 14:00 05/11/25 15:48 Temperature 36.6 C Pulse Rate 69 66 79 Respiratory Rate 18 Blood Pressure 153/59 H Pulse Oximetry 97 Oxygen Delivery 05/11/25 16:00 05/11/25 18:00 05/11/25 20:00 Temperature 36.6 C Pulse Rate 65 87 85 Respiratory Rate 16 Blood Pressure 166/67 H Pulse Oximetry 99 Oxygen Delivery 05/11/25 20:00 05/12/25 00:00 05/12/25 00:00 Temperature 36.7 C Pulse Rate 82 82 Respiratory Rate 16 Blood Pressure 156/59 H Pulse Oximetry 99 Oxygen Delivery Room Air 05/12/25 00:00 05/12/25 02:00 05/12/25 04:00 Temperature 36.6 C Pulse Rate 70 82 70 Respiratory Rate 16 Blood Pressure 158/64 H Pulse Oximetry 96 Oxygen Delivery 05/12/25 04:00 05/12/25 04:00 05/12/25 06:00 Temperature Pulse Rate 70 74 Respiratory Rate Blood Pressure Pulse Oximetry Oxygen Delivery Room Air 05/12/25 07:56 Temperature 36.8 C Pulse Rate 71 Respiratory Rate 14 Blood Pressure 143/56 H Pulse Oximetry 100 Oxygen Delivery Intake/Output Intake/Output: Intake & Output 05/09/25 05/10/25 05/11/25 05/12/25 23:59 23:59 23:59 23:59 Intake Total 1000 2913.8 1120 Output Total 4400 7700 750 [facility] -[id number] -3286.2 370 Meds/Results Medications: Active Medications Generic Name Dose Route Start Last Admin Trade Name Freq PRN Reason Stop Dose Admin Acetaminophen 650 mg 05/11/25 01:28 Acetaminophen 325 Mg Tablet PO Q4H PRN Mild Pain (1-3) or Fever Clopidogrel Bisulfate 75 mg 05/12/25 09:00 Clopidogrel Bisulfate 75 Mg Tablet PO QAM OLIVA Dextrose 12.5 gm 05/11/25 01:28 Dextrose 50% 25 Gm/50 Ml Syringe IV PUSH PRN PRN Hypoglycemia Protocol Estradiol 0.5 mg 05/11/25 09:00 05/11/25 07:51 Estradiol 0.5 Mg Tablet PO 0.5 mg DAILY OLIVA Administration Gabapentin 100 mg 05/11/25 09:00 05/11/25 16:42 Gabapentin 100 Mg Capsule PO 100 mg BID OLIVA Administration Glucagon 1 mg 05/11/25 01:28 Glucagon For Inj 1 Mg Vial IM PRN PRN Hypoglycemia Protocol Glucose 15 gm 05/11/25 01:28 Glucose Oral Gel 15 Gm Of Glucse In 37.5 Gm Tube PO PRN PRN Hypoglycemia Protocol Dextrose 1,000 mls @ 100 mls/hr 05/11/25 01:28 Dextrose 5% 1,000 Ml IVPB PRN PRN Hypoglycemia Protocol Cefepime HCl 2 gm/ Sodium 50 mls @ 100 mls/hr 05/11/25 15:00 05/12/25 02:32 Chloride IVPB 100 mls/hr Q12H OLIVA Administration Sodium Chloride 1,000 mls @ 125 mls/hr 05/11/25 07:20 05/12/25 01:20 Normal Saline Iv IV CONT 125 mls/hr .Q8H OLIVA Administration Morphine Sulfate 2 mg 05/11/25 01:32 Morphine Sulfate (*Crx) 4 Mg/Ml Inj IV PUSH Q2H PRN Pain Rated 7-10 Ondansetron HCl 4 mg 05/11/25 01:28 Ondansetron Inj 4 Mg/2 Ml Vial IV PUSH Q4H PRN Nausea Simvastatin 10 mg 05/11/25 21:00 05/11/25 21:14 Simvastatin 10 Mg Tablet PO 10 mg HS OLIVA Administration Tamsulosin HCl 0.4 mg 05/11/25 21:00 05/11/25 21:14 Tamsulosin Hcl 0.4 Mg Capsule PO 0.4 mg HS OLIVA Administration Radiology Results: ITS Impressions Chest X-Ray 05/11/25 12:47 IMPRESSION: 1. No acute cardiopulmonary findings given portable technique. Labs Labs: Laboratory Results - last 24 hr 05/11/25 05/12/25 12:02 04:38 WBC 8.0 RBC 2.74 L Hgb 8.8 L Hct 28.5 L MCV 104.0 H MCH 32.1 MCHC 30.9 L RDW 13.1 Plt Count 209 MPV 9.7 Immature Gran % (Auto) 0.3 Neut % (Auto) 72.4 Lymph % (Auto) 18.9 [place] % (Auto) 5.0 Eos % (Auto) 2.8 Baso % (Auto) 0.6 Lymph # (Auto) 1.51 [place] # (Auto) 0.4 Eos # (Auto) 0.2 Baso # (Auto) 0.1 Abs Immat Gran (auto) 0.02 Absolute Neuts (auto) 5.8 Absolute Nucleated RBC 0.000 Nucleated RBC % 0.0 Sodium 135 L Potassium 3.7 Chloride 112 H Carbon Dioxide 20 L Anion Gap 3 L BUN 11 D Creatinine 0.68 L Estim Creat Clear Calc 55 Estimated GFR > 60 Glucose 85 Calcium 8.1 L Ferritin 23.70
[2025-05-12] MEDS: GABAPENTIN 100 MG CAPSULE PO ×2 (09:49→18:02)
[2025-05-12] MEDS: CLOPIDOGREL BISULFATE 75 MG TABLET PO (09:49)
--- NOTE | 2025-05-12 09:55 | P.PNUR_ITS ---
Progress Note: A&P Assessment and Plan (1) Gross hematuria: Code(s): R31.0 - Gross hematuria Status: Acute (2) Irradiation cystitis with hematuria: Code(s): N30.41 - Irradiation cystitis with hematuria Status: Acute Plan Patient with new onset hematuria/clot retention with history of UTI and pelvic radiation, on ASA & Plavix for thromboembolic events. PLAN: * At this time, there is no evidence of clot retention clinically or radiologically, no need for NPO right now, but repeat NPO at midnight in case of need for clot evacuation * Continue CBI overnight * Restart Plavix while on CBI to monitor for bleeding * If she has significant CBI issues on Plavix, then would stop Plavix and may need to proceed with Cysto, Clot Evacuation while NPO and off blood thinners * If no significant CBI issues overnight on Plavix then can lift NPO tomorrow, and try to wean off of CBI and chan with an effort to get her home without a chan and back on Plavix * Blood cultures pending, there does not appear to be a urine culture Subjective Subjective Date/Time Seen: 05/12/25 09:55 Interval history: Discussed with nursing staff this AM, and there was no need for hand-irrigation overnight by nursing staff CBI running well Hct stable CT Pelvis Noncon today -- official read says there is hyperdense material in the bladder concerning for clot -- I personally reviewed the images, and believe the previously seen clot appears resolved -- she has right hip hardware, and there is artifact from it which would affect the HU on any density measurements in the bladder. Compared to her CT yesterday, it looks much improved. Review of Systems Review of Systems: All systems reviewed & are unremarkable except as noted in HPI and below Objective Data Vital Signs Vital Signs: Vital Signs - 24 hr 05/11/25 10:00 05/11/25 12:00 05/11/25 12:00 Temperature 36.5 C Pulse Rate 67 74 69 Respiratory Rate 18 Blood Pressure 137/72 Pulse Oximetry 100 Oxygen Delivery 05/11/25 14:00 05/11/25 15:48 05/11/25 16:00 Temperature 36.6 C Pulse Rate 66 79 65 Respiratory Rate 18 Blood Pressure 153/59 H Pulse Oximetry 97 Oxygen Delivery 05/11/25 18:00 05/11/25 20:00 10/11/25 20:00 Temperature 36.6 C Pulse Rate 87 85 82 Respiratory Rate 16 Blood Pressure 166/67 H Pulse Oximetry 99 Oxygen Delivery 05/12/25 00:00 05/12/25 00:00 05/12/25 00:00 Temperature 36.7 C Pulse Rate 82 70 Respiratory Rate 16 Blood Pressure 156/59 H Pulse Oximetry 99 Oxygen Delivery Room Air 05/12/25 02:00 05/12/25 04:00 05/12/25 04:00 Temperature 36.6 C Pulse Rate 82 70 Respiratory Rate 16 Blood Pressure 158/64 H Pulse Oximetry 96 Oxygen Delivery Room Air 05/12/25 04:00 05/12/25 06:00 05/12/25 07:56 Temperature 36.8 C Pulse Rate 70 74 71 Respiratory Rate 14 Blood Pressure 143/56 H Pulse Oximetry 100 Oxygen Delivery Intake/Output Intake/Output: Intake & Output 05/09/25 05/10/25 05/11/25 05/12/25 23:59 23:59 23:59 23:59 Intake Total 1000 2913.8 1480 Output Total 4400 7700 750 Balance -3400 -4786.2 730 Meds/Results Medications: Active Medications Generic Name Dose Route Start Last Admin Trade Name Freq PRN Reason Stop Dose Admin Acetaminophen 650 mg 05/11/25 01:28 Acetaminophen 325 Mg Tablet PO Q4H PRN Mild Pain (1-3) or Fever Clopidogrel Bisulfate 75 mg 05/12/25 09:00 05/12/25 09:49 Clopidogrel Bisulfate 75 Mg Tablet PO 75 mg QAM OLIVA Administration Dextrose 12.5 gm 05/11/25 01:28 Dextrose 50% 25 Gm/50 Ml Syringe IV PUSH PRN PRN Hypoglycemia Protocol Estradiol 0.5 mg 05/11/25 09:00 05/12/25 09:49 Estradiol 0.5 Mg Tablet PO 0.5 mg DAILY OLIVA Administration Gabapentin 100 mg 05/11/25 09:00 05/12/25 09:49 Gabapentin 100 Mg Capsule PO 100 mg BID OLIVA Administration Glucagon 1 mg 05/11/25 01:28 Glucagon For Inj 1 Mg Vial IM PRN PRN Hypoglycemia Protocol Glucose 15 gm 05/11/25 01:28 Glucose Oral Gel 15 Gm Of Glucse In 37.5 Gm Tube PO PRN PRN Hypoglycemia Protocol Dextrose 1,000 mls @ 100 mls/hr 05/11/25 01:28 Dextrose 5% 1,000 Ml IVPB PRN PRN Hypoglycemia Protocol Cefepime HCl 2 gm/ Sodium 50 mls @ 100 mls/hr 05/11/25 15:00 05/12/25 02:32 Chloride IVPB 100 mls/hr Q12H OLIVA Administration Sodium Chloride 1,000 mls @ 125 mls/hr 05/11/25 07:20 05/12/25 01:20 Normal Saline Iv IV CONT 125 mls/hr .Q8H OLIVA Administration Morphine Sulfate 2 mg 05/11/25 01:32 Morphine Sulfate (*Crx) 4 Mg/Ml Inj IV PUSH Q2H PRN Pain Rated 7-10 Ondansetron HCl 4 mg 05/11/25 01:28 Ondansetron Inj 4 Mg/2 Ml Vial IV PUSH Q4H PRN Nausea Simvastatin 10 mg 05/11/25 21:00 05/11/25 21:14 Simvastatin 10 Mg Tablet PO 10 mg HS OLIVA Administration Tamsulosin HCl 0.4 mg 05/11/25 21:00 05/11/25 21:14 Tamsulosin Hcl 0.4 Mg Capsule PO 0.4 mg HS OLIVA Administration Radiology Results: ITS Impressions Chest X-Ray 05/11/25 12:47 IMPRESSION: 1. No acute cardiopulmonary findings given portable technique. Abdomen/Pelvis CT 05/12/25 09:36 IMPRESSION: 1. Hyperdense urine in the bladder suspicious for hematoma. Artifact from the arthroplasty decreases specificity. 2. 2 mm nonobstructing left kidney stone. Labs Labs: Laboratory Results - last 24 hr 05/11/25 05/12/25 12:02 04:38 WBC 8.0 RBC 2.74 L Hgb 8.8 L Hct 28.5 L MCV 104.0 H MCH 32.1 MCHC 30.9 L RDW 13.1 Plt Count 209 MPV 9.7 Immature Gran % (Auto) 0.3 Neut % (Auto) 72.4 Lymph % (Auto) 18.9 [place] % (Auto) 5.0 Eos % (Auto) 2.8 Baso % (Auto) 0.6 Lymph # (Auto) 1.51 [place] # (Auto) 0.4 Eos # (Auto) 0.2 Baso # (Auto) 0.1 Abs Immat Gran (auto) 0.02 Absolute Neuts (auto) 5.8 Absolute Nucleated RBC 0.000 Nucleated RBC % 0.0 Sodium 135 L Potassium 3.7 Chloride 112 H Carbon Dioxide 20 L Anion Gap 3 L BUN 11 D Creatinine 0.68 L Estim Creat Clear Calc 55 Estimated GFR > 60 Glucose 85 Calcium 8.1 L Ferritin 23.70
[2025-05-12] MEDS: SIMVASTATIN 10 MG TABLET PO (20:49)
[2025-05-12] MEDS: TAMSULOSIN HCL 0.4 MG CAPSULE PO (20:49)
[2025-05-13] VITALS (13 sets, daily range): BP systolic 113–163; BP diastolic 56–83; PULSE 66–99; RESP 16–20; TEMP 36.4–36.9; O2SAT 97–100
[2025-05-13] MEDS: CEFEPIME 2 GM in SODIUM CHLORIDE 0.9% IV 50 ML 100 ML IVPB ×2 (02:44→15:50)
[2025-05-13 04:47] LABS: Hematocrit 28.0 % (37.0-47.0); Hemoglobin 9.1 g/dL (12.0-15.0); Immature Granulocyte Percent A 0.5 % (0-0.5); Lymphocytes Absolute Auto 1.75 K/mm3 (0.9-3.2); Mean Corpuscular HGB Conc 32.5 g/dl (32-36); Mean Corpuscular Hemoglobin 31.6 pg (26-34); Mean Corpuscular Volume 97.2 fl (80-100); Nucleated Red Blood Cells Absolute Auto 0.000 K/mm3 (0.0-0.012); Nucleated Red Blood Cells Perc 0.0 % (0.0-0.2); Platelet Count Result 217 k/mm3 (150-375); Red Blood Count 2.88 M/mm3 (4.2-5.4); White Blood Count 6.4 K/mm3 (4.5-10.0)
[2025-05-13 05:11] LABS: Anion Gap 4 mmol/L (4-12); Blood Urea Nitrogen 12 mg/dL (7-17); Calcium 8.6 mg/dL (8.4-10.2); Carbon Dioxide 24 mmol/L (22-30); Chloride 108 mmol/L (98-107); Estimated CRCL calculation 44 ml/min; Estimated Glomerular Filt Rate > 60; Glucose 87 mg/dL (65-110); Potassium 3.6 mmol/L (3.4-5.0); Sodium 136 mmol/L (137-145)
--- NOTE | 2025-05-13 07:43 | P.PNIM_ITS ---
Progress Note: A&P Assessment and Plan (1) Sepsis: Qualifiers: Sepsis acute organ dysfunction status: unspecified Sepsis type: sepsis due to unspecified organism Qualified Code(s): A41.9 - Sepsis, unspecified o rganism Code(s): A41.9 - Sepsis, unspecified organism Status: Acute Assessment and Plan: Hypotension resolved. IV fluid discontinued. CBI resumed. CT abdomen and pelvis shows hematoma in the bladder. Urology reviewed CT abdomen and pelvis-less suspicious for malignancy cefepime 2 gm q12h (2) Gross hematuria: Code(s): R31.0 - Gross hematuria Status: Acute Assessment and Plan: She started having clots 05/10 at 6:00 p.m. and she was complaining burning pain upon peeing. 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 IV fluid discontinued. CBI resumed. CT abdomen and pelvis shows hematoma in the bladder. Urology reviewed CT abdomen and pelvis-less suspicious for malignancy Will resume aspirin and Plavix and monitor if she start bleeds. If she start throwing clots in the bladder will stop aspirin and Plavix (3) Blood loss anemia: Code(s): D50.0 - Iron deficiency anemia secondary to blood loss (chronic) Status: Resolved Assessment and Plan: On admission hemoglobin 10.9, slowly downtrending to 9.5 Check iron study Resume aspirin and Plavix Daily CBC (4) Hyponatremia: Code(s): E87.1 - Hypo-osmolality and hyponatremia Status: Acute Assessment and Plan: Sodium 136 today (5) Acute hypotension: Code(s): I95.9 - Hypotension, unspecified Status: Acute Assessment and Plan: Hypotension resolved after fluid resuscitation (6) Acute on chronic anemia: Code(s): D64.9 - Anemia, unspecified Status: Acute Assessment and Plan: Follow iron study Plan DVT prophylaxis-SCD Diet-general diet Time Spent With Patient Time with patient: 25 - 35 minutes Subjective Date/time seen: 05/13/25 07:43 Interval history: Assuming care. Pt is seen and examined. Hematuria resolved. CT abdomen and pelvis shows a hematoma in the bladder. Aspirin and Plavix resumed. Patient denies any suprapubic pain. CBI running. Urology following. pt denies chest pain Review of Systems Review of Systems: 12 systems were reviewed with pertinent positives and negatives per HPI. Except as documented in the HPI, all other systems were reviewed and are negative. Exam Narrative: APPEARANCE: No acute distress, nontoxic EYES: EOMI HEENT: Normocephalic, atraumatic, OMM RESPIRATORY: No respiratory distress Clear to auscultation bilaterally with no rhonchi wheezing or rales. CARDIOVASCULAR: RRR, S1 and S2 without murmurs rubs or gallops. ABDOMINAL: Soft, nontender, nondistended, no rebound or guarding MSK: Right BKA NEURO: Awake and alert. Following commands, speech normal, no focal deficits SKIN:: Warm, dry. No rashes lesions or abrasions PSYCHIATRIC: Normal affect/mood, Const: Other: No acute distress, well-developed well-nourished, appears stated age HENMT: Other: Mucous membranes are tacky, no oral pharyngeal erythema, positive conjunctival pallor, no scleral icterus Neck: Other: No JVD, no lymphadenopathy Resp: Other: Clear to auscultation bilaterally, no increased work of breathing Cardio: Other: Regular rate, regular rhythm, 2+ bilateral radial pulses, 2+ left pedal pulse GI: Other: Soft, nontender, nondistended, positive bowel sounds : Other: 3 way Riggins catheter in place with Herman- Aid colored urine noted Skin: Other: Mild pallor, non jaundice Neuro: Other: Alert oriented, speech is clear, no facial asymmetry, moves all extremities equally Extrem: Other: Right [id number] amputation with an 8 covering the lateral aspect of the stump to help prevent friction wound, left lower extremity has no cyanosis or edema Psych: Other: Appropriate mood and affect, pleasant and cooperative, judgment and insight intact Objective Data Vital Signs Vital Signs: Vital Signs - 24 hr 05/12/25 07:56 05/12/25 08:00 05/12/25 08:00 Temperature 98.3 F Pulse Rate 71 70 Respiratory Rate 14 Blood Pressure 143/56 H Pulse Oximetry 100 Oxygen Delivery Room Air 05/12/25 10:00 05/12/25 11:51 05/12/25 12:00 Temperature 98.2 F Pulse Rate 86 72 74 Respiratory Rate 16 Blood Pressure 135/64 Pulse Oximetry 100 Oxygen Delivery 05/12/25 12:00 05/12/25 14:00 05/12/25 15:42 Temperature 98 F Pulse Rate 75 80 Respiratory Rate 20 Blood Pressure 181/76 H Pulse Oximetry 100 Oxygen Delivery Room Air 05/12/25 16:00 05/12/25 16:00 05/12/25 18:00 Temperature Pulse Rate 73 76 Respiratory Rate Blood Pressure Pulse Oximetry Oxygen Delivery Room Air 05/12/25 20:00 05/12/25 20:00 05/12/25 20:00 Temperature 98.2 F Pulse Rate 88 74 Respiratory Rate 16 Blood Pressure 169/70 H Pulse Oximetry 98 Oxygen Delivery Room Air 05/12/25 22:00 05/13/25 00:00 05/13/25 00:00 Temperature Pulse Rate 71 66 Respiratory Rate Blood Pressure Pulse Oximetry Oxygen Delivery Room Air 05/13/25 00:00 05/13/25 02:00 05/13/25 04:00 Temperature 98.0 F Pulse Rate 69 66 Respiratory Rate 16 Blood Pressure 155/66 H Pulse Oximetry 97 Oxygen Delivery Room Air 05/13/25 04:00 05/13/25 04:00 05/13/25 06:00 Temperature 98.1 F Pulse Rate 74 68 77 Respiratory Rate 16 Blood Pressure 150/70 H Pulse Oximetry 99 Oxygen Delivery Intake/Output Intake/Output: Intake & Output 05/10/25 05/11/25 05/12/25 05/13/25 23:59 23:59 23:59 23:59 Intake Total 1000 2913.8 2560 50 Output Total 4400 7700 2000 [employer] Balance -3400 -4786.2 280 -4975 Meds/Results Medications: Active Medications Generic Name Dose Route Start Last Admin Trade Name Freq PRN Reason Stop Dose Admin Acetaminophen 650 mg 05/11/25 01:28 Acetaminophen 325 Mg Tablet PO Q4H PRN Mild Pain (1-3) or Fever Clopidogrel Bisulfate 75 mg 05/12/25 09:00 05/12/25 09:49 Clopidogrel Bisulfate 75 Mg Tablet PO 75 mg QAM OLIVA Administration Dextrose 12.5 gm 05/11/25 01:28 Dextrose 50% 25 Gm/50 Ml Syringe IV PUSH PRN PRN Hypoglycemia Protocol Estradiol 0.5 mg 05/11/25 09:00 05/12/25 09:49 Estradiol 0.5 Mg Tablet PO 0.5 mg DAILY OLIVA Administration Gabapentin 100 mg 05/11/25 09:00 05/12/25 18:02 Gabapentin 100 Mg Capsule PO 100 mg BID OLIVA Administration Glucagon 1 mg 05/11/25 01:28 Glucagon For Inj 1 Mg Vial IM PRN PRN Hypoglycemia Protocol Glucose 15 gm 05/11/25 01:28 Glucose Oral Gel 15 Gm Of Glucse In 37.5 Gm Tube PO PRN PRN Hypoglycemia Protocol Dextrose 1,000 mls @ 100 mls/hr 05/11/25 01:28 Dextrose 5% 1,000 Ml IVPB PRN PRN Hypoglycemia Protocol Cefepime HCl 2 gm/ Sodium 50 mls @ 100 mls/hr 05/11/25 15:00 05/13/25 03:15 Chloride IVPB Infused Q12H OLIVA Infusion Morphine Sulfate 2 mg 05/11/25 01:32 Morphine Sulfate (*Crx) 4 Mg/Ml Inj IV PUSH Q2H PRN Pain Rated 7-10 Ondansetron HCl 4 mg 05/11/25 01:28 Ondansetron Inj 4 Mg/2 Ml Vial IV PUSH Q4H PRN Nausea Simvastatin 10 mg 05/11/25 21:00 05/12/25 20:49 Simvastatin 10 Mg Tablet PO 10 mg HS OLIVA Administration Tamsulosin HCl 0.4 mg 05/11/25 21:00 05/12/25 20:49 Tamsulosin Hcl 0.4 Mg Capsule PO 0.4 mg HS OLIVA Administration Radiology Results: ITS Impressions Chest X-Ray 05/11/25 12:47 IMPRESSION: 1. No acute cardiopulmonary findings given portable technique. Abdomen/Pelvis CT 05/12/25 10:04 IMPRESSION: 1. Hematoma in the bladder. 2. 2 mm nonobstructing left kidney stone. 3. Left inguinal hernia containing fat. Right inguinal hernia containing the appendix. Labs Labs: Laboratory Results - last 24 hr 05/13/25 04:06 WBC 6.4 RBC 2.88 L Hgb 9.1 L Hct 28.0 L MCV 97.2 D MCH 31.6 MCHC 32.5 RDW 12.9 Plt Count 217 MPV 9.7 Immature Gran % (Auto) 0.5 Neut % (Auto) 61.3 Lymph % (Auto) 27.5 [place] % (Auto) 6.3 Eos % (Auto) 4.1 Baso % (Auto) 0.3 Lymph # (Auto) 1.75 [place] # (Auto) 0.4 Eos # (Auto) 0.3 Baso # (Auto) 0.0 Abs Immat Gran (auto) 0.03 Absolute Neuts (auto) 3.9 Absolute Nucleated RBC 0.000 Nucleated RBC % 0.0 Sodium 136 L Potassium 3.6 Chloride 108 H Carbon Dioxide 24 Anion Gap 4 BUN 12 Creatinine 0.75 Estim Creat Clear Calc 44 Estimated GFR > 60 Glucose 87 Calcium 8.6
--- NOTE | 2025-05-13 08:27 | WPDUROPN2 ---
Progress Note: A&P Assessment and Plan (1) Gross hematuria: Code(s): R31.0 - Gross hematuria Status: Acute Assessment and Plan: - Pt on Plavix and aspirin currently, urine clear this AM - Hgb stable at 9.1 g/dL; slightly up from 8.8 g/dL prior - CBI clamped and Riggins bag drained - Plan to assess for any continued gross hematuria - In the setting of significant gross hematuria with dark red output or clots will recommend resuming CBI - If urine continues to be clear without significant hematuria or clot will plan to move towards discharge without Riggins catheter Subjective Subjective Date/Time Seen: 05/13/25 08:27 Interval history: Pt resting comfortably in bed; NAEO. Restarted on Plavix and aspirin and CBI running at slow rate. Urine currently clear and only slightly pink. Pt tolerating Riggins well. Objective Data Vital Signs Vital Signs: Vital Signs - 24 hr 05/12/25 10:00 05/12/25 11:51 05/12/25 12:00 Temperature 36.8 C Pulse Rate 86 72 74 Respiratory Rate 16 Blood Pressure 135/64 Pulse Oximetry 100 Oxygen Delivery 05/12/25 12:00 05/12/25 14:00 05/12/25 15:42 Temperature 36.6 C Pulse Rate 75 80 Respiratory Rate 20 Blood Pressure 181/76 H Pulse Oximetry 100 Oxygen Delivery Room Air 05/12/25 16:00 05/12/25 16:00 05/12/25 18:00 Temperature Pulse Rate 73 76 Respiratory Rate Blood Pressure Pulse Oximetry Oxygen Delivery Room Air 05/12/25 20:00 05/12/25 20:00 05/12/25 20:00 Temperature 36.8 C Pulse Rate 88 74 Respiratory Rate 16 Blood Pressure 169/70 H Pulse Oximetry 98 Oxygen Delivery Room Air 05/12/25 22:00 05/13/25 00:00 05/13/25 00:00 Temperature Pulse Rate 71 66 Respiratory Rate Blood Pressure Pulse Oximetry Oxygen Delivery Room Air 05/13/25 00:00 05/13/25 02:00 05/13/25 04:00 Temperature 36.7 C Pulse Rate 69 66 Respiratory Rate 16 Blood Pressure 155/66 H Pulse Oximetry 97 Oxygen Delivery Room Air 05/13/25 04:00 05/13/25 04:00 05/13/25 06:00 Temperature 36.7 C Pulse Rate 74 68 77 Respiratory Rate 16 Blood Pressure 150/70 H Pulse Oximetry 99 Oxygen Delivery Intake/Output Intake/Output: Intake & Output 05/10/25 05/11/25 05/12/25 05/13/25 23:59 23:59 23:59 23:59 Intake Total 1000 2913.8 2560 50 Output Total 4400 7700 1571 4345 [facility] -8891 -9361.2 [phone] -0893 Meds/Results Medications: Active Medications Generic Name Dose Route Start Last Admin Trade Name Freq PRN Reason Stop Dose Admin Acetaminophen 650 mg 05/11/25 01:28 Acetaminophen 325 Mg Tablet PO Q4H PRN Mild Pain (1-3) or Fever Clopidogrel Bisulfate 75 mg 05/12/25 09:00 05/12/25 09:49 Clopidogrel Bisulfate 75 Mg Tablet PO 75 mg QAM OLIVA Administration Dextrose 12.5 gm 05/11/25 01:28 Dextrose 50% 25 Gm/50 Ml Syringe IV PUSH PRN PRN Hypoglycemia Protocol Estradiol 0.5 mg 05/11/25 09:00 05/12/25 09:49 Estradiol 0.5 Mg Tablet PO 0.5 mg DAILY OLIVA Administration Gabapentin 100 mg 05/11/25 09:00 05/12/25 18:02 Gabapentin 100 Mg Capsule PO 100 mg BID OLIVA Administration Glucagon 1 mg 05/11/25 01:28 Glucagon For Inj 1 Mg Vial IM PRN PRN Hypoglycemia Protocol Glucose 15 gm 05/11/25 01:28 Glucose Oral Gel 15 Gm Of Glucse In 37.5 Gm Tube PO PRN PRN Hypoglycemia Protocol Dextrose 1,000 mls @ 100 mls/hr 05/11/25 01:28 Dextrose 5% 1,000 Ml IVPB PRN PRN Hypoglycemia Protocol Cefepime HCl 2 gm/ Sodium 50 mls @ 100 mls/hr 05/11/25 15:00 05/13/25 03:15 Chloride IVPB Infused Q12H OLIVA Infusion Morphine Sulfate 2 mg 05/11/25 01:32 Morphine Sulfate (*Crx) 4 Mg/Ml Inj IV PUSH Q2H PRN Pain Rated 7-10 Ondansetron HCl 4 mg 05/11/25 01:28 Ondansetron Inj 4 Mg/2 Ml Vial IV PUSH Q4H PRN Nausea Simvastatin 10 mg 05/11/25 21:00 05/12/25 20:49 Simvastatin 10 Mg Tablet PO 10 mg HS OLIVA Administration Tamsulosin HCl 0.4 mg 05/11/25 21:00 05/12/25 20:49 Tamsulosin Hcl 0.4 Mg Capsule PO 0.4 mg HS OLIVA Administration Radiology Results: ITS Impressions Chest X-Ray 05/11/25 12:47 IMPRESSION: 1. No acute cardiopulmonary findings given portable technique. Abdomen/Pelvis CT 05/12/25 10:04 IMPRESSION: 1. Hematoma in the bladder. 2. 2 mm nonobstructing left kidney stone. 3. Left inguinal hernia containing fat. Right inguinal hernia containing the appendix. Labs Labs: Laboratory Results - last 24 hr 05/13/25 04:06 WBC 6.4 RBC 2.88 L Hgb 9.1 L Hct 28.0 L MCV 97.2 D MCH 31.6 MCHC 32.5 RDW 12.9 Plt Count 217 MPV 9.7 Immature Gran % (Auto) 0.5 Neut % (Auto) 61.3 Lymph % (Auto) 27.5 [place] % (Auto) 6.3 Eos % (Auto) 4.1 Baso % (Auto) 0.3 Lymph # (Auto) 1.75 [place] # (Auto) 0.4 Eos # (Auto) 0.3 Baso # (Auto) 0.0 Abs Immat Gran (auto) 0.03 Absolute Neuts (auto) 3.9 Absolute Nucleated RBC 0.000 Nucleated RBC % 0.0 Sodium 136 L Potassium 3.6 Chloride 108 H Carbon Dioxide 24 Anion Gap 4 BUN 12 Creatinine 0.75 Estim Creat Clear Calc 44 Estimated GFR > 60 Glucose 87 Calcium 8.6
[2025-05-13] MEDS: CLOPIDOGREL BISULFATE 75 MG TABLET PO (09:24)
[2025-05-13] MEDS: GABAPENTIN 100 MG CAPSULE PO ×2 (09:24→15:56)
[2025-05-13 15:08] LABS: Albumin 2.9 g/dL (2.9-4.4); Alpha-1-Globulin 0.2 g/dL (0.0-0.4); Alpha-2-Globulin 0.6 g/dL (0.4-1.0); Gamma Globulin 0.5 g/dL (0.4-1.8)
[2025-05-13] MEDS: TAMSULOSIN HCL 0.4 MG CAPSULE PO (21:47)
[2025-05-13] MEDS: SIMVASTATIN 10 MG TABLET PO (21:47)
[2025-05-14] VITALS: BP 137/60; PULSE 70; PULSE 95; RESP 16; TEMP 36.8; O2SAT 97
[2025-05-14 02:00] VITALS: PULSE 67
[2025-05-14] MEDS: CEFEPIME 2 GM in SODIUM CHLORIDE 0.9% IV 50 ML 100 ML IVPB (03:12)
[2025-05-14 04:00] VITALS: BP 143/67; PULSE 67; PULSE 68; RESP 18; TEMP 36.8; O2SAT 96
[2025-05-14 04:11] LABS: Hematocrit 25.6 % (37.0-47.0); Hemoglobin 8.5 g/dL (12.0-15.0); Immature Granulocyte Percent A 0.3 % (0-0.5); Lymphocytes Absolute Auto 1.76 K/mm3 (0.9-3.2); Mean Corpuscular HGB Conc 33.2 g/dl (32-36); Mean Corpuscular Hemoglobin 32.2 pg (26-34); Mean Corpuscular Volume 97.0 fl (80-100); Nucleated Red Blood Cells Absolute Auto 0.000 K/mm3 (0.0-0.012); Nucleated Red Blood Cells Perc 0.0 % (0.0-0.2); Platelet Count Result 224 k/mm3 (150-375); Red Blood Count 2.64 M/mm3 (4.2-5.4); White Blood Count 6.2 K/mm3 (4.5-10.0)
[2025-05-14 04:31] LABS: Anion Gap 4 mmol/L (4-12); Blood Urea Nitrogen 14 mg/dL (7-17); Calcium 8.5 mg/dL (8.4-10.2); Carbon Dioxide 24 mmol/L (22-30); Chloride 107 mmol/L (98-107); Estimated CRCL calculation 48 ml/min; Estimated Glomerular Filt Rate > 60; Glucose 86 mg/dL (65-110); Potassium 3.6 mmol/L (3.4-5.0); Sodium 135 mmol/L (137-145)
[2025-05-14 06:00] VITALS: PULSE 63
[2025-05-14 08:00] VITALS: BP 150/69; PULSE 92; RESP 12; TEMP 36.8; O2SAT 98
--- NOTE | 2025-05-14 08:26 | WPDUROPN2 ---
Progress Note: A&P Assessment and Plan (1) Gross hematuria: Code(s): R31.0 - Gross hematuria Status: Acute Assessment and Plan: - Urine clear over night following Riggins catheter removal - Bladder scan with 20 ml on US per Tate RN - CTU without upper tract findings to explain gross hematuria - Encouraged pt to push PO fluids to keep urine clear - Suspect 2/2 radiation cystitis in the setting of anticoagulation use, however, pt is now 3+ years removed from last hematuria workup and will benefit from complete workup to rule out any lower tract pathology. Will arrange for outpatient cystoscopy with Dr. Lane. - If bladder scan is without any Pt may be discharged home without Riggins catheter with outpatient follow up as above Subjective Subjective Date/Time Seen: 05/14/25 08:26 Interval history: NAEO; voiding without issue and no blood/clots seen in urine. Exam Const: General: comfortable and no acute distress Eyes: General: appearance normal, both eyes and all related structures Resp: Effort & Inspection: normal respiratory effort Skin: General skin exam: normal color Neuro: Speech: normal speech Objective Data Vital Signs Vital Signs: Vital Signs - 24 hr 05/13/25 10:00 05/13/25 12:00 05/13/25 12:00 Temperature 36.6 C Pulse Rate 73 93 92 Respiratory Rate 20 Blood Pressure 147/83 H Pulse Oximetry 100 Oxygen Delivery 05/13/25 14:00 05/13/25 16:00 05/13/25 16:00 Temperature 36.7 C Pulse Rate 72 79 73 Respiratory Rate 18 Blood Pressure 163/72 H Pulse Oximetry 100 Oxygen Delivery 05/13/25 18:00 05/13/25 19:43 05/13/25 20:00 Temperature 36.9 C Pulse Rate 99 73 Respiratory Rate 16 Blood Pressure 147/61 H Pulse Oximetry 100 Oxygen Delivery Room Air 05/13/25 20:00 05/13/25 22:00 05/14/25 00:00 Temperature 36.8 C Pulse Rate 96 70 95 Respiratory Rate 16 Blood Pressure 137/60 Pulse Oximetry 97 Oxygen Delivery 05/14/25 00:00 05/14/25 00:00 05/14/25 02:00 Temperature Pulse Rate 70 67 Respiratory Rate Blood Pressure Pulse Oximetry Oxygen Delivery Room Air 05/14/25 04:00 05/14/25 04:00 05/14/25 04:00 Temperature 36.8 C Pulse Rate 67 68 Respiratory Rate 18 Blood Pressure 143/67 H Pulse Oximetry 96 Oxygen Delivery Room Air 05/14/25 06:00 05/14/25 08:00 Temperature 36.8 C Pulse Rate 63 92 Respiratory Rate 12 Blood Pressure 150/69 H Pulse Oximetry 98 Oxygen Delivery Intake/Output Intake/Output: Intake & Output 05/11/25 05/12/25 05/13/25 05/14/25 23:59 23:59 23:59 23:59 Intake Total 2913.8 2560 1400 300 Output Total 7700 1999 3075 900 Balance -4786.2 022 -2251 -741 Meds/Results Medications: Active Medications Generic Name Dose Route Start Last Admin Trade Name Freq PRN Reason Stop Dose Admin Acetaminophen 650 mg 05/11/25 01:28 Acetaminophen 325 Mg Tablet PO Q4H PRN Mild Pain (1-3) or Fever Clopidogrel Bisulfate 75 mg 05/12/25 09:00 05/13/25 09:24 Clopidogrel Bisulfate 75 Mg Tablet PO 75 mg QAM OLIVA Administration Dextrose 12.5 gm 05/11/25 01:28 Dextrose 50% 25 Gm/50 Ml Syringe IV PUSH PRN PRN Hypoglycemia Protocol Estradiol 0.5 mg 05/11/25 09:00 05/13/25 09:24 Estradiol 0.5 Mg Tablet PO 0.5 mg DAILY OLIVA Administration Gabapentin 100 mg 05/11/25 09:00 05/13/25 15:56 Gabapentin 100 Mg Capsule PO 100 mg BID OLIVA Administration Glucagon 1 mg 05/11/25 01:28 Glucagon For Inj 1 Mg Vial IM PRN PRN Hypoglycemia Protocol Glucose 15 gm 05/11/25 01:28 Glucose Oral Gel 15 Gm Of Glucse In 37.5 Gm Tube PO PRN PRN Hypoglycemia Protocol Dextrose 1,000 mls @ 100 mls/hr 05/11/25 01:28 Dextrose 5% 1,000 Ml IVPB PRN PRN Hypoglycemia Protocol Cefepime HCl 2 gm/ Sodium 50 mls @ 100 mls/hr 05/11/25 15:00 05/14/25 03:42 Chloride IVPB Infused Q12H OLIVA Infusion Morphine Sulfate 2 mg 05/11/25 01:32 Morphine Sulfate (*Crx) 4 Mg/Ml Inj IV PUSH Q2H PRN Pain Rated 7-10 Ondansetron HCl 4 mg 05/11/25 01:28 Ondansetron Inj 4 Mg/2 Ml Vial IV PUSH Q4H PRN Nausea Simvastatin 10 mg 05/11/25 21:00 05/13/25 21:47 Simvastatin 10 Mg Tablet PO 10 mg HS OLIVA Administration Tamsulosin HCl 0.4 mg 05/11/25 21:00 05/13/25 21:47 Tamsulosin Hcl 0.4 Mg Capsule PO 0.4 mg HS OLIVA Administration Radiology Results: ITS Impressions Chest X-Ray 05/11/25 12:47 IMPRESSION: 1. No acute cardiopulmonary findings given portable technique. Abdomen/Pelvis CT 05/12/25 10:04 IMPRESSION: 1. Hematoma in the bladder. 2. 2 mm nonobstructing left kidney stone. 3. Left inguinal hernia containing fat. Right inguinal hernia containing the appendix. Labs Labs: Laboratory Results - last 24 hr 05/11/25 05/14/25 03:17 03:24 WBC 6.2 RBC 2.64 L Hgb 8.5 L Hct 25.6 L MCV 97.0 MCH 32.2 MCHC 33.2 RDW 12.9 Plt Count 224 MPV 9.6 Immature Gran % (Auto) 0.3 Neut % (Auto) 59.6 Lymph % (Auto) 28.6 [place] % (Auto) 6.5 Eos % (Auto) 4.2 Baso % (Auto) 0.8 Lymph # (Auto) 1.76 [place] # (Auto) 0.4 Eos # (Auto) 0.3 Baso # (Auto) 0.1 Abs Immat Gran (auto) 0.02 Absolute Neuts (auto) 3.7 Absolute Nucleated RBC 0.000 Nucleated RBC % 0.0 Sodium 135 L Potassium 3.6 Chloride 107 Carbon Dioxide 24 Anion Gap 4 BUN 14 Creatinine 0.68 L Estim Creat Clear Calc 48 Estimated GFR > 60 Glucose 86 Calcium 8.5 Total Protein (PEP) 5.1 L Albumin (PEP) 2.9 Globulin (PEP) 2.2 Albumin/Globulin Ratio 1.3 [id number] 0.2 [id number] 0.6 Beta Globulins 0.8 Gamma Globulins 0.5 PEP Comment Comment Pr Electrophoresis MSpike Not observed
--- NOTE | 2025-05-14 08:37 | P.PNIM_ITS ---
Progress Note: A&P Assessment and Plan (1) Sepsis: Qualifiers: Sepsis acute organ dysfunction status: unspecified Sepsis type: sepsis due to unspecified organism Qualified Code(s): A41.9 - Sepsis, unspecified o rganism Code(s): A41.9 - Sepsis, unspecified organism Status: Acute Assessment and Plan: Hypotension resolved. IV fluid discontinued. CBI resumed. CT abdomen and pelvis shows hematoma in the bladder. Urology reviewed CT abdomen and pelvis-less suspicious for malignancy cefepime 2 gm q12h vs stable, no fever will downgrade from cefepime to po levaquin (2) Gross hematuria: Code(s): R31.0 - Gross hematuria Status: Acute Assessment and Plan: She started having clots 05/10 at 6:00 p.m. and she was complaining burning pain upon peeing. 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 IV fluid discontinued. CBI resumed. CT abdomen and pelvis shows hematoma in the bladder. Urology reviewed CT abdomen and pelvis-less suspicious for malignancy Will resume aspirin and Plavix and monitor if she start bleeds. If she start throwing clots in the bladder will stop aspirin and Plavix chan removed urine clear hg dropped to day to 8.5 (3) Blood loss anemia: Code(s): D50.0 - Iron deficiency anemia secondary to blood loss (chronic) Status: Resolved Assessment and Plan: On admission hemoglobin 10.9, slowly downtrending to 9.5 Check iron study Resume aspirin and Plavix Daily CBC (4) Hyponatremia: Code(s): E87.1 - Hypo-osmolality and hyponatremia Status: Acute Assessment and Plan: Sodium 136 today (5) Acute hypotension: Code(s): I95.9 - Hypotension, unspecified Status: Acute Assessment and Plan: Hypotension resolved after fluid resuscitation (6) Acute on chronic anemia: Code(s): D64.9 - Anemia, unspecified Status: Acute Assessment and Plan: Follow iron study Plan DVT prophylaxis-SCD Diet-general diet Time Spent With Patient Time with patient: 25 - 35 minutes Subjective Date/time seen: 05/14/25 08:37 Interval history: Pt is seen and examined. Voiding without issues, no blood/clots seen in urine. urology following. drop in hg this morning Review of Systems Review of Systems: 12 systems were reviewed with pertinent positives and negatives per HPI. Except as documented in the HPI, all other systems were reviewed and are negative. Exam Narrative: APPEARANCE: No acute distress, nontoxic EYES: EOMI HEENT: Normocephalic, atraumatic, OMM RESPIRATORY: No respiratory distress Clear to auscultation bilaterally with no rhonchi wheezing or rales. CARDIOVASCULAR: RRR, S1 and S2 without murmurs rubs or gallops. ABDOMINAL: Soft, nontender, nondistended, no rebound or guarding MSK: Right BKA NEURO: Awake and alert. Following commands, speech normal, no focal deficits SKIN:: Warm, dry. No rashes lesions or abrasions PSYCHIATRIC: Normal affect/mood, Const: Other: No acute distress, well-developed well-nourished, appears stated age HENMT: Other: Mucous membranes are tacky, no oral pharyngeal erythema, positive conjunctival pallor, no scleral icterus Neck: Other: No JVD, no lymphadenopathy Resp: Other: Clear to auscultation bilaterally, no increased work of breathing Cardio: Other: Regular rate, regular rhythm, 2+ bilateral radial pulses, 2+ left pedal pulse GI: Other: Soft, nontender, nondistended, positive bowel sounds : Other: 3 way Chan catheter in place with Herman- Aid colored urine noted Skin: Other: Mild pallor, non jaundice Neuro: Other: Alert oriented, speech is clear, no facial asymmetry, moves all extremities equally Extrem: Other: Right [id number] amputation with an 8 covering the lateral aspect of the stump to help prevent friction wound, left lower extremity has no cyanosis or edema Psych: Other: Appropriate mood and affect, pleasant and cooperative, judgment and insight intact Objective Data Vital Signs Vital Signs: Vital Signs - 24 hr 05/13/25 10:00 05/13/25 12:00 05/13/25 12:00 Temperature 97.8 F Pulse Rate 73 93 92 Respiratory Rate 20 Blood Pressure 147/83 H Pulse Oximetry 100 Oxygen Delivery 05/13/25 14:00 05/13/25 16:00 05/13/25 16:00 Temperature 98.1 F Pulse Rate 72 79 73 Respiratory Rate 18 Blood Pressure 163/72 H Pulse Oximetry 100 Oxygen Delivery 05/13/25 18:00 05/13/25 19:43 05/13/25 20:00 Temperature 98.4 F Pulse Rate 99 73 Respiratory Rate 16 Blood Pressure 147/61 H Pulse Oximetry 100 Oxygen Delivery Room Air 05/13/25 20:00 05/13/25 22:00 05/14/25 00:00 Temperature 98.3 F Pulse Rate 96 70 95 Respiratory Rate 16 Blood Pressure 137/60 Pulse Oximetry 97 Oxygen Delivery 05/14/25 00:00 05/14/25 00:00 05/14/25 02:00 Temperature Pulse Rate 70 67 Respiratory Rate Blood Pressure Pulse Oximetry Oxygen Delivery Room Air 05/14/25 04:00 05/14/25 04:00 05/14/25 04:00 Temperature 98.3 F Pulse Rate 67 68 Respiratory Rate 18 Blood Pressure 143/67 H Pulse Oximetry 96 Oxygen Delivery Room Air 05/14/25 06:00 05/14/25 08:00 Temperature 98.3 F Pulse Rate 63 92 Respiratory Rate 12 Blood Pressure 150/69 H Pulse Oximetry 98 Oxygen Delivery Intake/Output Intake/Output: Intake & Output 05/11/25 05/12/25 05/13/25 05/14/25 23:59 23:59 23:59 23:59 Intake Total 2913.8 2560 1400 780 Output Total 7700 9212 7155 900 [facility] -[phone] -120 Meds/Results Medications: Active Medications Generic Name Dose Route Start Last Admin Trade Name Freq PRN Reason Stop Dose Admin Acetaminophen 650 mg 05/11/25 01:28 Acetaminophen 325 Mg Tablet PO Q4H PRN Mild Pain (1-3) or Fever Clopidogrel Bisulfate 75 mg 05/12/25 09:00 05/13/25 09:24 Clopidogrel Bisulfate 75 Mg Tablet PO 75 mg QAM OLIVA Administration Dextrose 12.5 gm 05/11/25 01:28 Dextrose 50% 25 Gm/50 Ml Syringe IV PUSH PRN PRN Hypoglycemia Protocol Estradiol 0.5 mg 05/11/25 09:00 05/13/25 09:24 Estradiol 0.5 Mg Tablet PO 0.5 mg DAILY OLIVA Administration Gabapentin 100 mg 05/11/25 09:00 05/13/25 15:56 Gabapentin 100 Mg Capsule PO 100 mg BID OLIVA Administration Glucagon 1 mg 05/11/25 01:28 Glucagon For Inj 1 Mg Vial IM PRN PRN Hypoglycemia Protocol Glucose 15 gm 05/11/25 01:28 Glucose Oral Gel 15 Gm Of Glucse In 37.5 Gm Tube PO PRN PRN Hypoglycemia Protocol Dextrose 1,000 mls @ 100 mls/hr 05/11/25 01:28 Dextrose 5% 1,000 Ml IVPB PRN PRN Hypoglycemia Protocol Cefepime HCl 2 gm/ Sodium 50 mls @ 100 mls/hr 05/11/25 15:00 05/14/25 03:42 Chloride IVPB Infused Q12H OLIVA Infusion Morphine Sulfate 2 mg 05/11/25 01:32 Morphine Sulfate (*Crx) 4 Mg/Ml Inj IV PUSH Q2H PRN Pain Rated 7-10 Ondansetron HCl 4 mg 05/11/25 01:28 Ondansetron Inj 4 Mg/2 Ml Vial IV PUSH Q4H PRN Nausea Simvastatin 10 mg 05/11/25 21:00 05/13/25 21:47 Simvastatin 10 Mg Tablet PO 10 mg HS OLIVA Administration Tamsulosin HCl 0.4 mg 05/11/25 21:00 05/13/25 21:47 Tamsulosin Hcl 0.4 Mg Capsule PO 0.4 mg HS OLIVA Administration Radiology Results: ITS Impressions Chest X-Ray 05/11/25 12:47 IMPRESSION: 1. No acute cardiopulmonary findings given portable technique. Abdomen/Pelvis CT 05/12/25 10:04 IMPRESSION: 1. Hematoma in the bladder. 2. 2 mm nonobstructing left kidney stone. 3. Left inguinal hernia containing fat. Right inguinal hernia containing the appendix. Labs Labs: Laboratory Results - last 24 hr 05/11/25 05/14/25 03:17 03:24 WBC 6.2 RBC 2.64 L Hgb 8.5 L Hct 25.6 L MCV 97.0 MCH 32.2 MCHC 33.2 RDW 12.9 Plt Count 224 MPV 9.6 Immature Gran % (Auto) 0.3 Neut % (Auto) 59.6 Lymph % (Auto) 28.6 [place] % (Auto) 6.5 Eos % (Auto) 4.2 Baso % (Auto) 0.8 Lymph # (Auto) 1.76 [place] # (Auto) 0.4 Eos # (Auto) 0.3 Baso # (Auto) 0.1 Abs Immat Gran (auto) 0.02 Absolute Neuts (auto) 3.7 Absolute Nucleated RBC 0.000 Nucleated RBC % 0.0 Sodium 135 L Potassium 3.6 Chloride 107 Carbon Dioxide 24 Anion Gap 4 BUN 14 Creatinine 0.68 L Estim Creat Clear Calc 48 Estimated GFR > 60 Glucose 86 Calcium 8.5 Total Protein (PEP) 5.1 L Albumin (PEP) 2.9 Globulin (PEP) 2.2 Albumin/Globulin Ratio 1.3 Ehslq-9-Njwswslfd 0.2 Xcapk-5-Fdhawbdpu 0.6 Beta Globulins 0.8 Gamma Globulins 0.5 PEP Comment Comment Pr Electrophoresis MSpike Not observed
[2025-05-14] MEDS: GABAPENTIN 100 MG CAPSULE PO (09:00)
[2025-05-14] MEDS: CLOPIDOGREL BISULFATE 75 MG TABLET PO (09:00)
[2025-05-14 09:42] LABS: Iron 23 ug/dL (37-170)
[2025-05-14 09:52] LABS: Percent Iron Saturation 9 % (20-50)
--- NOTE | 2025-05-14 10:05 | P.DS_ITS ---
DS: Admitting Diagnosis Discharge Date 05/14 Admitting Diagnosis hematuria DS: Discharge Diagnosis Discharge Diagnosis (1) Sepsis: Qualifiers: Sepsis acute organ dysfunction status: unspecified Sepsis type: sepsis due to unspecified organism Qualified Code(s): A41.9 - Sepsis, unspecified organism Code(s): A41.9 - Sepsis, unspecified organism Status: Acute (2) Gross hematuria: Code(s): R31.0 - Gross hematuria Status: Acute (3) Blood loss anemia: Code(s): D50.0 - Iron deficiency anemia secondary to blood loss (chronic) Status: Resolved (4) Hyponatremia: Code(s): E87.1 - Hypo-osmolality and hyponatremia Status: Acute (5) Acute hypotension: Code(s): I95.9 - Hypotension, unspecified Status: Acute (6) Acute on chronic anemia: Code(s): D64.9 - Anemia, unspecified Status: Acute DS: Summary Hospital Course Hospital Course: 74-year-old female with a past medical history of uterine cancer status post radiation therapy in the , bladder prolapse status post bladder sling in 2019, history of frequent UTIs with radiation cystitis, peripheral artery disease status post right ywcyg-dni-bcpe amputation, essential hypertension, hyperlipidemia and former tobacco use who presented to the ER from home with hematuria and dysuria. The patient reports for for the last 2 weeks she has had intermittent dysuria the mostly occurred at night and when she would wake up in the morning. Wrist today she was not having any recurrence of dysuria or hematuria. Then suddenly last night before coming to the ER she developed socorro hematuria with worsening burning. She felt like she could not pass any actual urine and was passing straight blood. She denies any recent fevers, chills body aches her fatigue that she would have when she has had prior UTIs. She denies any nausea or vomiting. She is on chronic Plavix and 81 mg aspirin due to peripheral artery disease. Initially on presentation to the ER blood pressures were normal. However the patient was having multiple blood clots in her catheter that were not clearing. Subsequently when her catheter was exchanged to a larger diameter catheter she developed hypotension. Her blood pressures were in the 60s and 70 systolic. She was given 1 L of fluid bolus earlier in the ER stay. When she became hypotensive she received an additional 2 L with 1 those being given with pressure bag. Patient was fluid responsive and had initial improvement in blood pressures up to the 110s. When the fluids were decreased back down to normal bolus over an hour blood pressures again dropped into the 70s and 80s. Urology was consulted. Had CBI running until urine was clear and chan was d/omar. She remained stable overnight and had clear urine. Hg dropped a bit this am, but overall stable- 8.5. She will get an order for CBC to recheck hg within few days after discharge. She is on asa and plavix. See progress note from Dr Mayorga. - Urine clear over night following Chan catheter removal - Bladder scan with 20 ml on US per Tate RN - CTU without upper tract findings to explain gross hematuria - Encouraged pt to push PO fluids to keep urine clear - Suspect 2/2 radiation cystitis in the setting of anticoagulation use, however, pt is now 3+ years removed from last hematuria workup and will benefit from complete workup to rule out any lower tract pathology. Will arrange for outpatient cystoscopy with Dr. Lane. - If bladder scan is without any Pt may be discharged home without Chan catheter with outpatient follow up as above Antibiotics for UTI were downgraded to levaquin- dose today, 05/14 then one more dose in 48h and course is completed. Status at Discharge Functional status at discharge: independent ambulation Overall status at discharge: patient is progressing back to baseline Time Spent with Patient Time attestation: Total time spent providing and/or coordinating discharge services: Time spent: Greater than 30 minutes Exam Narrative: APPEARANCE: No acute distress, nontoxic EYES: EOMI HEENT: Normocephalic, atraumatic, OMM RESPIRATORY: No respiratory distress Clear to auscultation bilaterally with no rhonchi wheezing or rales. CARDIOVASCULAR: RRR, S1 and S2 without murmurs rubs or gallops. ABDOMINAL: Soft, nontender, nondistended, no rebound or guarding MSK: Right BKA NEURO: Awake and alert. Following commands, speech normal, no focal deficits SKIN:: Warm, dry. No rashes lesions or abrasions PSYCHIATRIC: Normal affect/mood, Const: General: comfortable Other: No acute distress, well-developed well-nourished, appears stated age HENMT: Other: Mucous membranes are tacky, no oral pharyngeal erythema, positive conjunctival pallor, no scleral icterus Neck: Other: No JVD, no lymphadenopathy Resp: Other: Clear to auscultation bilaterally, no increased work of breathing Cardio: Other: Regular rate, regular rhythm, 2+ bilateral radial pulses, 2+ left pedal pulse GI: Other: Soft, nontender, nondistended, positive bowel sounds : Other: 3 way Chan catheter in place with Herman- Aid colored urine noted Skin: Other: Mild pallor, non jaundice Neuro: Other: Alert oriented, speech is clear, no facial asymmetry, moves all extremities equally Extrem: Other: Right abixl-xva-qnqi amputation with an 8 covering the lateral aspect of the stump to help prevent friction wound, left lower extremity has no cyanosis or edema Psych: Other: Appropriate mood and affect, pleasant and cooperative, judgment and insight intact DS: Data Data Completed and Pending Completed studies during hospitalization: abd/pelvis CT Labs on day of discharge: Labs from last 24 hours 05/14/25 05/11/25 03:24 03:17 WBC 6.2 RBC 2.64 L Hgb 8.5 L Hct 25.6 L MCV 97.0 MCH 32.2 MCHC 33.2 RDW 12.9 Plt Count 224 MPV 9.6 Immature Gran % (Auto) 0.3 Neut % (Auto) 59.6 Lymph % (Auto) 28.6 [place] % (Auto) 6.5 Eos % (Auto) 4.2 Baso % (Auto) 0.8 Lymph # (Auto) 1.76 [place] # (Auto) 0.4 Eos # (Auto) 0.3 Baso # (Auto) 0.1 Abs Immat Gran (auto) 0.02 Absolute Neuts (auto) 3.7 Absolute Nucleated RBC 0.000 Nucleated RBC % 0.0 Sodium 135 L Potassium 3.6 Chloride 107 Carbon Dioxide 24 Anion Gap 4 BUN 14 Creatinine 0.68 L Estim Creat Clear Calc 48 Estimated GFR > 60 Glucose 86 Calcium 8.5 Iron 23 L TIBC 253 L % Saturation 9 L Total Protein (PEP) 5.1 L Albumin (PEP) 2.9 Globulin (PEP) 2.2 Albumin/Globulin Ratio 1.3 Acood-0-Sotftzerg 0.2 Hxdie-7-Gvhfxpkoq 0.6 Beta Globulins 0.8 Gamma Globulins 0.5 PEP Comment Comment Pr Electrophoresis MSpike Not observed Preliminary micro results at discharge 05/11/25 03:21 Blood Culture - Preliminary Blood 05/11/25 03:17 Blood Culture - Preliminary Blood Discharge Plan Discharge Attending physician on discharge: Mathew Mortensen Consulting providers: Estuardo Velasquez; Lizzy Stephen Discharging Clinician: Eri Mercer Patient Disposition: Home Activity: may shower Diet: heart healthy Discharge Instructions: YOu were admitted for blood in urine. Urology was following with you. DR Mayorga: Suspect 2/2 radiation cystitis in the setting of anticoagulation use, however, pt is now 3+ years removed from last hematuria workup and will benefit from complete workup to rule out any lower tract pathology. Will need an outpatient cystoscopy with Dr. Lane. Please f/u with urology as mentioned above. CBC is to be rechecked in few days after discharge to ensure your hemaglobin is stable. Continue to take your aspirin and plavix. Patient Instructions: Antibiotic Form Patient Language: Hungarian Stand Alone Forms: General Discharge Information Follow-up/Referrals: Shawn Lane MD [Physician, Urology] - 4 Weeks Referral Note: Gross hematuria, needs cysto Discharge Medications: New levofloxacin 750 mg tablet 750 mg PO Q48H 1 Days Qty: 1 0RF Rx Instructions: next dose on 05/16 and done with the course Continued zinc 50 mg tablet 50 mg PO DAILY gabapentin 100 mg capsule See Rx Instructions .ROUTE .COMPLEX Qty: 60 5RF Dose Instruction: Take 1 capsule by mouth twice daily Rx Instructions: Take 1 capsule by mouth twice daily multivitamin Tablet 1 tablet PO DAILY Patient Comments: womens 50 plus estradiol 0.5 mg tablet See Rx Instructions .ROUTE .COMPLEX Qty: 90 1RF Dose Instruction: Take 1 tablet by mouth once daily Rx Instructions: Take 1 tablet by mouth once daily lisinopril 20 mg tablet See Rx Instructions .ROUTE .COMPLEX Qty: 90 1RF Dose Instruction: Take 1 tablet by mouth once daily Rx Instructions: Take 1 tablet by mouth once daily simvastatin 10 mg tablet 10 mg PO HS Qty: 90 1RF metoprolol succinate [Toprol XL] 25 mg tablet extended release 24 hr 12.5 mg PO BID Qty: 90 1RF omeprazole 20 mg capsule,delayed release(DR/EC) See Rx Instructions .ROUTE .COMPLEX Qty: 90 1RF Dose Instruction: Take 1 capsule by mouth once daily Rx Instructions: Take 1 capsule by mouth once daily clopidogrel 75 mg tablet See Rx Instructions .ROUTE .COMPLEX Qty: 30 5RF Dose Instruction: TAKE 1 TABLET BY MOUTH IN THE MORNING Rx Instructions: TAKE 1 TABLET BY MOUTH IN THE MORNING tamsulosin 0.4 mg capsule 0.4 mg PO HS Qty: 90 1RF cholecalciferol (vitamin D3) 10 mcg (400 unit) Capsule 10 mcg PO DAILY Ocuvite See Rx Instructions .ROUTE .COMPLEX Rx Instructions: Take one by mouth daily as directed aspirin [Children's Aspirin] 81 mg Tablet,Chewable 81 mg PO DAILY@0800 Qty: 30 0RF cyanocobalamin (vitamin B-12) [Vitamin B-12] 1,000 mcg Tablet 1,000 mcg PO QAM Qty: 20 0RF calcium carbonate 500 mg calcium (1,250 mg) Tablet 500 mg PO DAILY Other Ambulatory Orders: Complete Blood Count no Diff (Routine) Timeframe: 1 Week Location: Determined by Patient Ordered By: Eri Mercer Date of admission: 05/11/25 08:49 Primary Care Provider: Gelacio Justin Admitting Provider: Marj Farmer Attending physician on admission: Marj Farmer Condition: Stable Hospitalist MIPS Heart Failure (Exclusion) Patient has history of Heart Transplant or Left Ventricular Assistive Device?: No IF YES, STOP HERE Heart Failure (Qualifier) Patient has current or prior documentation of LVEF less than or equal to 40%, or mod/servere depressed LVSF?: No IF NO, STOP HERE
[2025-05-14 12:00] VITALS: BP 94/78; PULSE 89; RESP 20; TEMP 36.8; O2SAT 98
== END 2025-05-14 12:41 | disposition home or self-care (01) | DRG 872 ==
LOC: ANHED 05-11 01:52 → ANHICU 05-11 04:43 → ANHIMU 05-11 09:21
PROVIDERS: Student in an Organized Health Care Education/Training Program; Admitting Provider Internal Medicine; Emergency Provider Physician Assistant; PCP Family Medicine; Visit Provider Nurse Practitioner
DX: A41.9 Sepsis, unspecified organism (principal); N30.41 Irradiation cystitis with hematuria; E87.1 Hypo-osmolality and hyponatremia; G11.9 Hereditary ataxia, unspecified; I10 Essential (primary) hypertension; I73.9 Peripheral vascular disease, unspecified; D50.0 Iron deficiency anemia secondary to blood loss (chronic); E55.9 Vitamin D deficiency, unspecified; K21.9 Gastro-esophageal reflux disease without esophagitis; M85.80 Other specified disorders of bone density and structure, unspecified site; Z96.641 Presence of right artificial hip joint; Z85.42 Personal history of malignant neoplasm of other parts of uterus; Z92.3 Personal history of irradiation; Z79.82 Long term (current) use of aspirin; Z79.02 Long term (current) use of antithrombotics/antiplatelets; Z89.511 Acquired absence of right leg below knee; Z87.891 Personal history of nicotine dependence
CPT/HCPCS: 36415; 71045; 74176; 74178; 80048; 80053; 81001; 82728; 82948; 83540; 83550; 83605; 84145; 84155; 84165; 85025; 85610; 85730; 86140; 86850; 86900; 86901; 87040; 96361; 96365; 96375; 99285; A9270; G0378; J0612; J0692; J3373; J7030; Q9967

== ENCOUNTER 2025-05-16 13:20 | Outpatient (CLI) | payer MEDICARE, OTHER, SELFPAY ==
--- OUTSIDE RECORDS SUMMARY | 2025-05-16 15:12 | XMS_ITS | Patient Health Record ---
Author Organization [facility] Address [address] [place] [address] Care Team Providers Care Boxing Instructor Name Role Phone Gelacio Justin MD Primary Care Provider Unava ilable Reason For Referral No Information Plan Of Treatment Pending Test Test Name Order Date Colonoscopy 06/30/2018 Insurance Providers Payer Name Payer Address Payer Phone Subscriber Number Group Number Insured Name Patient Relationship to Insured Coverage Start Date Coverage End Date Medicare-I L - Part A Medicare [address] [facility] [place] [id number] Jillian Riddle Self - patient is the insured for Life - Medicare Sup [address] [place], [place] [id number] Jillian Riddle Self - patient is the insured Medicare-M O Medicare [address] [address] [place], [place] [id number] Jillian Riddle Self - patient is the insured
--- OUTSIDE RECORDS SUMMARY | 2025-05-16 15:12 | XMS_ITS | Clinical Summary ---
Author Organization [facility] Address [address] [place] [id number] Care Team Providers Care Carbonizer Name Role Phone Gelacio Justin MD Primary Care Provider [phone] Allergies Active Allergy Reactions Criticality Noted Date [...] right above knee amputation 4 Atherosclerosis of [place] of both lower extremities with [...] concern for infection. Plan: Referral to local certified court interpreter for evaluation and fitting of a right lower extremity below-knee prosthesis. Moderate malnutrition 10/25/2022 Acute pain of right lower extremity 10/16/2022 Mixed hyperlipidemia 07/14/2022 Assessment & Plan (07/14/2022 5:18 PM SHIPWRIGHT APPRENTICE): Impression: Chronic hyperlipidemia, controlled with statin therapy. Plan: Continue statin therapy as per primary care provider. Primary hypertension 07/14/2022 Assessment & Plan (07/14/2022 5:17 PM SHIPWRIGHT APPRENTICE): Impression: Chronic hypertension, controlled medications. Blood pressure stable. Plan: Continue blood pressure management as per primary care provider. 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 Assessment & Plan (07/14/2022 5:19 PM SHIPWRIGHT APPRENTICE): Impression: Patient is status post right popliteal [...] Department Care Team Description 02/19/2025 Orders Only [facility] [facility] [address] [place] [address] Becky Byrd MA 02/19/2025 Orders Only [facility] [address] [place] [address] [address] [place] [address] Max Sinha MD Right leg weakness (Primary Dx) 02/18/2025 1:00 PM CDT Office Visit [facility] [address] [facility] [address] [place] [address] Suri Hendricks PA Atherosclerosis of [place] artery of both lower extremities with intermittent claudication (Primary Dx); Mixed hyperlipidemia; Primary hypertension; Below-knee amputation of right lower extremity, subsequent encounter 02/18/2025 Orders Only [facility] [address] [facility] [address] [place] [address] Max Sinha MD Atherosclerosis of [place] artery of both lower extremities with intermittent claudication (Primary Dx) from Last 3 Months Immunizations Immunization Administration Dates Next Due Influenza, Quadrivalent, Hig h Dose, Preservative Free, Intrr 05/05/2022 Influenza, Quadrivalent, Rec ombinant, Egg Free, Preservative Free, Intramuscular 05/21/2021,04/18/2019 Influenza, Quadrivalent, Spl it, Preservative Free, Intramuscular 06/01/2018 Tdap 01/20/2021 Surgical History Surgery Date Site/Laterality Comments IN [facility] DIR/W/CATH V/C ILIAC FEMPOP VEIN ABDL&LEG [...] often do you attend chur ch or sabianism services? 1 to 4 times per year 11/22/2022 Do you belong to any clubs o r organizations such as worship groups, unions, fraternal or athletic groups, or [...] place to sleep or slept in a half-way (including now)? No 11/22/2022 Personal Safety Answer Date Recorded Have you ever been in or are you currently in a harmful physical or emotional relationship or is someone making you feel afraid or unsafe? Denies 11/22/2022 Comments No Sex and Gender Information Value Date Recorded Sex Assigned at Not on file Legal Sex Female 7:05 AM SHIPWRIGHT APPRENTICE Gender Identity Not on file Sexual Orientation [...] Assessment 11/27/2023 11/26/2022 Covid-19 Vaccine (4 - 2024-2 6 season) 2025 06/30/2021, 11/04/2020, 09/10/2020 Influenza Vaccine (#1) 2025 , 05/21/2021, 04/18/2019, Additional history exists DTaP/Tdap/Td Vaccine (2 - Td or Tdap) 01/20/2031 01/20/2021 Medical Devices Implanted Type Area Dynamics Ax Solution Architect Device Identifier Shelf Expiration Date Model / Serial / Lot [employer] Stuart 8mm 80cm Stretch Thin Wall Graft Vascular Heparin Propaten [id number] - [id number] - [id number] Implanted:Qty: 1 on 06/04/2022 by Rahat Perry MD at [facility] Right: Femur [employer] [id number] 06/02/2025 [id number] / [id number] / [employer] 6mm 40cm Stretch Peripheral Thin Wall Graft Vascular Stuart-Guero [id number] - [id number] - [id number] Implanted:Qty: 1 on 10/18/2022 by Rahat Perry MD at [facility] Right: Leg [employer] [id number] 02/24/2026 [id number] / [id number] / [employer] Weck Horizon 24 Cartridge Ligate Triangulate Cross Section Heart [id number] - [id number] Implanted:Qty: 15 on 10/18/2022 by Rahat Perry MD at [facility] Right: Leg [employer] [id number] / / Insurance MEDICARE [facility] [employer] FOR LIFE MEDICARE [facility] Address: [address] [address] [place] [address] FOR LIFE Advance Directives For more information, please contact: [phone] * Full Code (Latest Code Status on File) Date Activated Date Inactivated Comments 11/22/2022 10:12 AM 11/26/2022 6:26 PM * Full Code Date Activated Date Inactivated Comments 10/16/2022 11:50 PM 10/28/2022 8:53 PM * Full Code Date Activated Date Inactivated Comments 06/02/2022 6:30 PM 06/08/2022 9:24 PM Care Teams Carbonizer Relationship Specialty Start Date End Date Gelacio Justin MD PCP - General Family Medicine 06/07/22
[2025-05-16 19:49] LABS: Hematocrit 29.4 % (37.0-47.0); Hemoglobin 9.4 g/dL (12.0-15.0); Mean Corpuscular HGB Conc 32.0 g/dl (32-36); Mean Corpuscular Hemoglobin 31.9 pg (26-34); Mean Corpuscular Volume 99.7 fl (80-100); Platelet Count Result 309 k/mm3 (150-375); Red Blood Count 2.95 M/mm3 (4.2-5.4); White Blood Count 7.2 K/mm3 (4.5-10.0)
== END 2025-05-16 13:21 | disposition home or self-care (01) ==
LOC: ANHGOSHLAB 13:21
PROVIDERS: PCP Family Medicine; Visit Provider Nurse Practitioner
DX: R31.0 Gross hematuria (principal)
CPT/HCPCS: 36415; 85027

== ENCOUNTER 2025-05-28 13:30 | Outpatient (RCR) | payer MEDICARE, OTHER, SELFPAY ==
--- NOTE | 2025-03-12 09:58 | OPREHPOC ---
Outpatient Therapy Plan of Care This is a Multidisciplinary Plan of Care that may contain components documented by all disciplines (PT, OT, and ST.) PT Problem 1 PT Problem #1 Knowledge Deficit PT Goal 1 Goal / Goal Update 1. Patient to demonstrate independence with HEP for improved self-reliance of symptom management. Target Visit 4 PT Problem 2 PT Problem #2 Impaired Functional Mobility PT Goal 1 Goal / Goal Update 1. Patient to improve distance ambulated during Two-Minute Walk Test to demonstrate an improvement in activities of daily living endurance. 2. Patient to improve confidence and understanding of gait mechanics and stair negotiation with quad cane to improve community navigation. 3. Patient to score >=40/56 on the Rosas Balance Scale to show improvements in balance and decreased level of assistance needed. Target Visit 10 PT Problem 3 PT Problem #3 Impaired Strength PT Goal 1 Goal / Goal Update 1. Patient to demonstrate RLE strength >=4+/5 for improved functional stability required for ADLs. 2. Pt to demonstrate an increase of R hip External rotation ROM and strength of WFL to improve positioning of prosthetic and improve gait pattern. Target Visit 10
--- NOTE | 2025-03-12 10:03 | PTOPEVAL1 ---
Assessment and note entered by Orlando Clark PT Evaluation Information Assessment Status Evaluation Diagnosis R leg weakness following R BKA ICD-10 Condition Codes (PT) Abnormalities of gait and mobility R26.9,Weakness R53.1 Subjective Information Pt reports she had R RUBY surgery in Jun with a subsequent blood clots leading to a R BKA. Pt states she feels the positioning and weakness of positioning of her leg is affecting her balance and gait. Pt ambulates with a quad cane or a walker when on uneven terrain. She owns a wheelchair but only has to use it for long trips. Pt reports no recent falls because she is extremely cautious. Pt reports she has stair lift to enter her home and to reach her 2nd floor. Pt reports she has the ability to go up and down stairs as long as she is cautious. Pt notes her biggest goals for therapy is to straighten and strengthen her leg to have better balance. Reported Pain Level Pain Score 0: Self Report Assessment PT Clinical Summary Patient presents to physical therapy with a primary issue of R leg weakness and difficulties with gait following a BKA. Patient demonstrates RLE weakness, decreased hip mobility, abnormal posture, gait deficit, and decreased flexibility that limit their ability to perform activities of daily living and functional movements. Patient will benefit from skilled physical therapy to address the above listed deficits and return to prior level of function. Home exercise program instructed and written handout provided, exercises tolerated well with no adverse effects to note post-session. Patient was educated on importance of adherence to home exercise program. Patient was also educated on anatomy, prognosis, home modalities, and plan of care Plan of Care Interventions Gait Training,Hot Pack/Cold Pack,Manual Therapy, Neuro Re-education,Therapeutic Activities, Therapeutic Exercise,Other PT Services Indicated Yes Treatment Frequency and 2x week 10 visits Duration These treatments will address the objective and functional deficits as defined above. The patient will be advanced safely and appropriately in order for the patient to progress towards his/her prior level of function. Additional exercises will be introduced and as well as a comprehensive home exercise program upon discharge, if needed, ?to ensure carryover of functional gains achieved in the clinic. This treatment plan has been reviewed and agreement upon by the patient.
--- NOTE | 2025-04-17 10:06 | PTOPPROG ---
Assessment and note entered by Orlando Clark, PT Evaluation Information Assessment Status Progress Diagnosis R leg weakness following R BKA ICD-10 Condition Codes (PT) Abnormalities of gait and mobility R26.9,Weakness R53.1 Subjective Information Pt reports she got her prosthetic adjusted yesterday and it feels like it is taking pressure off the outside of her stump. She reports since the adjustment her leg is feeling better and the redness and skin irritation is looking much better . Pt reports since starting therapy she has noticed increased strength in her hips. Pt reports now that the prosthetic has been adjusted she would like to slowly build up her standing and walking tolerance. She notes continued difficulty navigating the community with her cane, especially curbs. Assessment PT Clinical Summary Patient has improved overall as evidenced by advancements in decreased pain after prosthetic adjustment and increased hip mobility, strength, and overall functional use of the extremity. However, some limitations are still present such as gait deficits and decreased functional mobility due to limited standing and walking tolerance. Patient would benefit from continued skilled physical therapy services to address the above listed impairments and facilitate a return to their prior level of function. Plan of Care Interventions Gait Training,Hot Pack/Cold Pack,Manual Therapy, Neuro Re-education,Therapeutic Activities, Therapeutic Exercise,Other PT Services Indicated Yes Treatment Frequency and 2x week 8 visits Duration These treatments will address the objective and functional deficits as defined above. The patient will be advanced safely and appropriately in order for the patient to progress towards his/her prior level of function. Additional exercises will be introduced and as well as a comprehensive home exercise program upon discharge, if needed, ?to ensure carryover of functional gains achieved in the clinic. This treatment plan has been reviewed and agreement upon by the patient.
--- NOTE | 2025-05-28 14:14 | PTOPDC ---
Assessment and note entered by Orlando Clark PT Evaluation Information Assessment Status Discharge Diagnosis R leg weakness following R BKA ICD-10 Condition Codes (PT) Abnormalities of gait and mobility R26.9,Weakness R53.1 Subjective Information Pt has meet with perforator and now feels her prosthetic is fitting right. She notes she still has soreness and feels like she needs to build up a tolerance through her stump, but feels confident things will get better with time. Reported Pain Level Pain Score 0: Self Report Assessment PT Clinical Summary Patient's R leg has improved overall as evidenced by advancements in decreased symptoms and increased mobility, strength, and overall functional use of the extremity. Patient has met therapy goals and is pleased with progress made towards the remaining goals. Pt agrees that she just need further time to get use to the prosthetic and build standing tolerance. Patient to discharge from physical therapy this date and continue with updated home exercise program as instructed. Patient to contact physical therapist or primary care provider if questions or concerns arise. Plan of Care PT Services Indicated No
== END 2025-05-29 10:08 | disposition home or self-care (01) ==
LOC: ANHGOSHPT 13:30
PROVIDERS: PCP Family Medicine; Visit Provider Surgery Vascular Surgery
DX: Z47.81 Encounter for orthopedic aftercare following surgical amputation (principal); R29.898 Other symptoms and signs involving the musculoskeletal system; R26.9 Unspecified abnormalities of gait and mobility; R53.1 Weakness; Z89.511 Acquired absence of right leg below knee
CPT/HCPCS: 97110; 97112; 97116; 97140; 97161; 97530